=== PATIENT | female | born 1980 | race Caucasian/White ===

== ENCOUNTER → 2018-05-05 12:40 | Outpatient (CLI) | payer OTHER, MEDICAID, SELFPAY ==
[2018-05-05 13:40] LABS: HCG Quantitative /Beta subunit < 2.39 mIU/mL
== END ==
DX: N91.5 Oligomenorrhea, unspecified (principal)
CPT/HCPCS: 36415; 84702

== ENCOUNTER 2019-10-25 18:30 | Emergency (ER) | payer OTHER, MEDICAID, SELFPAY ==
[2019-10-25 18:39] VITALS: BP 118/65; PULSE 67; RESP 15; TEMP 36.6; O2SAT 99; BMI 39.4
[2019-10-25 21:16] VITALS: BP 118/61; PULSE 66; RESP 18; O2SAT 97
[2019-10-25 21:21] LABS: Add Manual Diff / Slide Review NO; Basophils Absolute Auto 100 /uL (0-100); Eosinophils Absolute Auto 300 /uL (0-450); Eosinophils Percent Auto 4.1 % (2-4); Hematocrit 39.4 % (36-46); Hemoglobin 13.9 g/dL (12.0-16.0); Lymphocytes Absolute Auto 3400 /uL (1100-4500); Lymphocytes Percent Auto 43.8 % (25-40); Mean Corpuscular HGB Conc 35.4 % (30-36); Mean Corpuscular Volume 87.6 fL (80-100); Monocytes Absolute Auto 800 /uL (0-900); Monocytes Percent Auto 10.4 % (3-14); Neutrophils Absolute Auto 3200 /uL (1500-7000); Neutrophils Percent Auto 40.7 % (50-75); Platelet Count 218 X10^3/uL (150-400); Red Cell Distribution Width 12.5 % (11.6-14.8); White Blood Cell Count 7.8 X10^3/uL (4.5-11.0)
[2019-10-25 21:29] LABS: Alanine Aminotransferase 21 IU/L (<35); Albumin Globulin Ratio 1.4 (1.0-2.8); Alkaline Phosphatase 92 U/L (38-126); Aspartate Aminotransferase 35 IU/L (14-36); BUN Creatinine Ratio 21.3 (6-22); Bilirubin Total 0.3 mg/dL (0.2-1.3); Blood Urea Nitrogen 19 mg/dL (7-17); Calcium 9.1 mg/dL (8.4-10.2); Carbon Dioxide 26 mmol/L (22-32); Chloride 110 mmol/L (98-107); Estimated Glomerular Filt Rate > 60.0 mL/min (>60); Globulin 2.9 g/dL (1.7-4.1); Glucose 95 mg/dL (70-100); HEMOLYSIS < 15 (0-50); Potassium 4.1 mmol/L (3.4-5.1); Sodium 142 mmol/L (137-145); Total Protein 6.9 g/dL (6.3-8.2)
--- NOTE | 2019-10-25 21:37 | ED_ITS ---
HPI - Female Genitourinary General Chief complaint: Vaginal Bleeding Stated complaint: Heavy period, says ongoing since April. Time Seen by Provider: 10/25/19 21:37 Source: patient Mode of arrival: Wheelchair Limitations: no limitations History of Present Illness HPI Narrative: The patient has PCOS. She has experienced bleeding daily for the last 6 months. She has not seen her doctor. Over last 2 days she has experienced extremely heavy bleeding, having to change tampons, multiple per hour. She has no abdominal pain. She has no nausea vomiting. She has no prior history of uterine problems. She denies weakness or dizziness. She has no bleeding disorders. She has no urinary complaints. Related Data Previous Rx's Medication Instructions Recorded sertraline 50 mg PO QDAY #30 tab 09/03/16 docusate sodium 250 mg PO QDAY #14 cap 02/02/17 oxycodone-acetaminophen 0 tab PO Q4HP PRN #30 tab 02/02/17 ibuprofen 600 mg PO Q6HP PRN #14 tab 03/28/17 medroxyprogesterone [Provera] 10 mg PO .Q 2 hours PRN #30 tab 10/25/19 Allergies Allergy/AdvReac Type Severity Reaction Status Date / Time morphine Allergy Intermediate pt felt Verified 10/25/19 18:41 like she was on fire Review of Systems Review of Systems ROS Unobtainable: All systems reviewed & are unremarkable except as noted in HPI and below Constitutional Constitutional: Denies chills, Denies fever(s), Denies lethargy and Denies weakness Cardiovascular Cardiovascular: Denies chest pain, Denies irregular heart rhythm, Denies palpitations and Denies dyspnea Respiratory Respiratory: Denies cough and Denies dyspnea Gastrointestinal Gastrointestinal: Denies abdominal pain, Denies nausea and Denies vomiting Genitourinary Genitourinary: Reports menorrhagia, Denies urinary urgency and Denies vaginal discharge Musculoskeletal Musculoskeletal: Reports back pain (Lower lumbar pain.), Denies muscle weakness, Denies numbness and Denies tingling Integumentary/Breasts Skin/Breast: Reports system reviewed and no additional complaints, except as docu Neurologic Neurologic: Denies numbness, Denies tingling and Denies weakness Psychiatric Psychiatric: Denies anxiety Endocrine Endocrine: Denies palpitations Patient History alcohol intake frequency: holidays/special occasions only Substance Use Type: marijuana Exam Initial Vital Signs Initial Vital Signs: Vital Signs Temperature 97.9 F 10/25/19 18:39 Pulse Rate 67 10/25/19 18:39 Respiratory Rate 15 10/25/19 18:39 Blood Pressure 118/65 10/25/19 18:39 Pulse Oximetry 99 10/25/19 18:39 Const General: cooperative and well developed Nutritional Appearance: well nourished Eyes General: appearance normal, both eyes and all related structures Conjunctivae: conjunctivae normal Sclera: sclerae normal Resp Effort & Inspection: normal respiratory effort and able to speak in complete sentences Auscultation: clear to auscultation bilaterally Cardio Rate: regular rate Rhythm: regular rhythm Heart Sounds: S1 normal, S2 normal, no click, no gallops, no murmurs and no rubs Pulses: normal peripheral pulses GI Inspection: non-distended Palpation: soft, no hepatosplenomegaly, No guarding, No pulsatile mass and No tender Auscultation: normal bowel sounds Back/Spine/Pelvis Back: back tenderness (Lumbar pain without deformity.) and No CVA tenderness Skin General: no rashes or lesions noted, No jaundice and No petechiae Neuro General: alert, oriented x3, gait normal and no focal motor deficits Speech: speech normal Extrem General: full ROM, no clubbing, cyanosis or edema, no pedal edema and no calf tenderness Other: Full range of motion both legs without radiculopathy Psych Appearance: well kempt Mental Status: mental status grossly normal Attitude: cooperative Thought Content: normal and suicidality Judgment: judgment good Course Course Course Narrative: The patient was given IV Toradol for the low back pain. She is advised use Advil. I discussed the dysfunctional uterine bleeding with on- call Gynecology, Dr. Pool. Dr. Pool agrees to starting her on Depo-Provera, and follow-up with her own triage licensed practical nurse, Dr. Will. Orders Ordered: ED Orders 10/25/19 21:10 CMP [Comprehensive Metabolic Panel] Stat Complete Blood Count AUTO DIFF Stat Discontinued Medications Ketorolac Tromethamine (Toradol) 30 mg IV NOW ONE Stop: 10/25/19 22:52 Last Admin: 10/25/19 23:57 Dose: 30 mg Documented by: BRAYDON Medroxyprogesterone Acetate (Medroxyprogesterone) 10 mg PO NOW ONE Stop: 10/25/19 22:44 Last Admin: 10/25/19 23:57 Dose: Not Given Documented by: BRAYDON Medroxyprogesterone Acetate (Medroxyprogesterone) 10 mg PO Q2HR PRN PRN Reason: Bleeding Medroxyprogesterone Acetate (Medroxyprogesterone) 10 mg PO Q2HR PRN PRN Reason: Bleeding Medroxyprogesterone Acetate (Provera) 10 mg PO DAILY OMKAR Last Admin: 10/25/19 23:57 Dose: 10 mg Documented by: BRAYDON Vital Signs Vital signs: Vital Signs - 8 hr 10/25/19 21:16 10/26/19 00:13 Pulse Rate 66 60 Respiratory Rate 18 15 Blood Pressure 134/80 Blood Pressure [Left Arm] 118/61 Pulse Oximetry 97 100 MDM - Female Genitourinary Lab Data Result diagrams: 10/25/19 21:10 10/25/19 21:10 Labs: Lab Results 10/25/19 10/25/19 Range/Units 21:10 21:10 WBC 7.8 (4.5-11.0) X10^3/uL RBC 4.50 (4.0-5.2) X10^6/uL Hgb 13.9 (12.0-16.0) g/dL Hct 39.4 (36-46) % MCV 87.6 (80-100) fL MCH 31.0 (26-34) PG MCHC 35.4 (30-36) % RDW 12.5 (11.6-14.8) % Plt Count 218 (150-400) X10^3/uL Neut % (Auto) 40.7 L (50-75) % Lymph % (Auto) 43.8 H (25-40) % [place] % (Auto) 10.4 (3-14) % Eos % (Auto) 4.1 H (2-4) % Baso % (Auto) 1.0 (0-2) % Neut # (Auto) 3200 (2726-2391) /uL Lymph # (Auto) 3400 (0516-7265) /uL [place] # (Auto) 800 (0-900) /uL Eos # (Auto) 300 (0-450) /uL Baso # (Auto) 100 (0-100) /uL Sodium 142 (137-145) mmol/L Potassium 4.1 (3.4-5.1) mmol/L Chloride 110 H (98-107) mmol/L Carbon Dioxide 26 (22-32) mmol/L BUN 19 H (7-17) mg/dL Creatinine 0.89 (0.52-1.04) mg/dL Estimated GFR > 60.0 (>60) mL/min BUN/Creatinine Ratio 21.3 (6-22) Glucose 95 (70-100) mg/dL Calcium 9.1 (8.4-10.2) mg/dL Total Bilirubin 0.3 (0.2-1.3) mg/dL AST 35 (14-36) IU/L ALT 21 (<35) IU/L Alkaline Phosphatase 92 (38-126) U/L Total Protein 6.9 (6.3-8.2) g/dL Albumin 4.0 (3.5-5.0) g/dL Globulin 2.9 (1.7-4.1) g/dL Albumin/Globulin Ratio 1.4 (1.0-2.8) Point of Care Testing Test Results Negative Urine Dip Bedside Urine Glucose Negative Bedside Urine Bilirubin - Negative Bedside Urine Ketone - Negative Urine Specific [place] 1.005 Bedside Urine Occult Blood +++ Bedside Urine pH 6.0 Bedside Urine Protein - Negative Bedside Urine Urobilinogen - Negative Bedside Urine Nitrite - Negative Bedside Urine Leukocytes - Negative Esterase Discharge Plan Departure Patient Disposition: Home Clinical Impression: Menorrhagia Qualifiers: Menorrhagia type: with irregular cycle Qualified Code(s): N92.1 - Excessive and frequent menstruation with irregular cycle Discharge Date/Time: 10/26/19 00:14 Instructions: DI for Menorrhagia Activity Restrictions/Additional Instructions: Provera 10 mg every 2 hours while bleeding heavily. When the bleeding improves/resolves Provera 1 tablet daily. Drink plenty of fluids, be sure you remain well hydrated. Contact Dr. Will tomorrow to arrange follow-up. Return the ER if necessary. Prescriptions: New medroxyprogesterone [Provera] 10 mg tablet 10 mg PO .Q 2 hours PRN (Reason: bleeding) Qty: 30 RF: 0 No Action sertraline 50 MG tablet 50 mg PO QDAY Qty: 30 RF: 3 oxycodone-acetaminophen 5 MG/325 MG tablet 0 tab PO Q4HP PRNQty: 30 RF: 0 docusate sodium 250 MG capsule 250 mg PO QDAY Qty: 14 RF: 0 ibuprofen 600 MG tablet 600 mg PO Q6HP PRNQty: 14 RF: 6 Referrals: Justyna Beltran [Primary Care Provider] - Stand Alone Forms: Work Release Note
[2019-10-25] MEDS: MEDROXYPROGESTERONE ACETATE 2.5 MG TABLET 10 MG PO (23:57)
[2019-10-25] MEDS: KETOROLAC 60 MG/2 ML VIAL 30 MG IV (23:57)
[2019-10-26 00:13] VITALS: BP 134/80; PULSE 60; RESP 15; O2SAT 100
== END 2019-10-26 00:14 | disposition home or self-care (01) ==
PROVIDERS: Emergency Provider Emergency Medicine; PCP Internal Medicine
DX: N92.1 Excessive and frequent menstruation with irregular cycle (principal); M54.6 Pain in thoracic spine; E28.2 Polycystic ovarian syndrome
CPT/HCPCS: 36415; 80053; 81003; 81025; 85025; 96374; 99284; J1885

== ENCOUNTER 2019-10-28 16:00 | Emergency (ER) | payer OTHER, MEDICAID, SELFPAY ==
[2019-10-28 16:02] VITALS: BP 127/70; PULSE 55; RESP 22; TEMP 36.2; O2SAT 100
--- NOTE | 2019-10-28 16:36 | DI.US.S_ITS ---
PROCEDURE: US PELVIC COMPLETE INDICATIONS: pelvic pain, heavy bleeding TECHNIQUE: Real-time scanning was performed of the pelvic organs, with image documentation. Additional endovaginal scanning was necessary due to incomplete visualization of the adnexal and endometrial structures by transabdominal scanning. COMPARISON: [facility], US, PELVIC COMPLETE, 01/30/2016, 10:55. FINDINGS: Transabdominal scanning: Limited scanning through the kidneys shows no hydronephrosis. No pathologic free abdominal or pelvic fluid. Endovaginal scanning: Uterus: Uterus is normal in size at 8.9 x 5.2 x 7.1 cm. The endometrium measures 5 mm in combined thickness. No abnormal vascularity can be seen along the endometrial stripe. Ovaries: The right ovary measures 2.8 x 1.8 x 1.8 cm and demonstrates an unremarkable sonographic appearance. The left ovary is not seen. No adnexal masses can be seen on either side. IMPRESSION: Unremarkable study, with a normal-appearing endometrial stripe. The left ovary is not seen. Dictated by: Luke Vann M.D. on 10/28/2019 at 16:51 Approved by: Luke Vann M.D. on 10/28/2019 at 16:52
--- NOTE | 2019-10-28 16:38 | ED_ITS ---
HPI - Dizziness General Chief Complaint: Dizziness Stated Complaint: lightheaded,dizzy,nausea Time Seen by Provider: 10/28/19 16:36 Source: patient Mode of arrival: Ambulatory Limitations: no limitations History of Present Illness HPI Narrative: 38-year-old female 40 smoker with a history of PCOS is presents with a chief complaint of ongoing vaginal bleeding and dizziness. She has very minimal pelvic cramping which she does not describe his pain. She is not saturating more than 1 pad per hour. She was seen and evaluated 3 days ago and was placed on medroxyprogesterone 10 mg every 2 hours as needed. Her OB doctor is Dr. Reyes and she spoke with him this morning and plans to see patient in the office tomorrow. She denies any fever or chills. She has no chest pain or shortness of breath. MD complaint: dizziness and lightheadedness Onset (ago): hour(s) Timing: gradual onset Description: lightheadedness History of similar episodes: Yes History of trauma: No Severity: mild Relieving factors: rest Exacerbating factors: position Related Data Previous Rx's Medication Instructions Recorded sertraline 50 mg PO QDAY #30 tab 09/03/16 docusate sodium 250 mg PO QDAY #14 cap 02/02/17 oxycodone-acetaminophen 0 tab PO Q4HP PRN #30 tab 02/02/17 ibuprofen 600 mg PO Q6HP PRN #14 tab 03/28/17 medroxyprogesterone [Provera] 10 mg PO .Q 2 hours PRN #30 tab 10/25/19 Allergies Allergy/AdvReac Type Severity Reaction Status Date / Time morphine Allergy Intermediate pt felt Verified 10/25/19 18:41 like she was on fire paper tape Allergy Uncoded 10/28/19 16:06 Review of Systems Constitutional Constitutional: Denies chills, Denies fatigue, Denies fever(s), Denies frequent falls, Denies lethargy and Reports weakness Eyes Eyes: Denies change in vision, Denies eye discharge, Denies irritation and Denies loss of vision ENT Ears, Nose, Mouth, and Throat: Denies change in voice, Denies dizziness, Denies neck pain, Denies sore throat and Denies throat swelling Cardiovascular Cardiovascular: Denies chest pain, Denies irregular heart rhythm, Denies lightheadedness, Denies palpitations, Denies dyspnea, Denies dyspnea on exertion and Denies orthopnea Respiratory Respiratory: Denies cough, Denies dyspnea, Denies dyspnea on exertion and Denies wheezing Gastrointestinal Gastrointestinal: Denies abdominal pain, Denies change in bowel habits, Denies diarrhea, Denies nausea and Denies vomiting Genitourinary Genitourinary: Denies hematuria, Reports menorrhagia, Denies flank pain, Denies urinary incontinence and Denies urinary urgency Musculoskeletal Musculoskeletal: Denies back pain, Denies muscle weakness, Denies neck pain, Denies numbness and Denies tingling Integumentary/Breasts Skin/Breast: Denies pruritus, Denies erythema, Denies rash and Denies wounds Neurologic Neurologic: Denies behavioral changes, Denies confusion, Denies dizziness, Denies frequent falls, Denies loss of vision, Denies numbness, Denies tingling and Reports weakness Psychiatric Psychiatric: Denies anxiety, Denies behavioral changes, Denies confusion, Denies depression, Denies homicidal ideation and Denies suicidal ideation Endocrine Endocrine: Denies fatigue, Denies flushing and Denies palpitations Hematologic/Lymphatic Hematologic/Lymphatic: Denies easy bruising Allergic/Immunologic Allergic/Immunologic: Denies urticaria, Denies throat swelling and Denies wheezing Patient History Social History Smoking Status: Former smoker Smoking Status: Former smoker alcohol intake frequency: holidays/special occasions only Substance Use Type: marijuana Exam Narrative Exam Narrative: GENERAL: [38] year old patient appears stated age. Well- nourished, well-developed patient, in mild distress. HEAD: Atraumatic. Normocephalic. EYES: Pupils equal round and reactive. Extraocular motions intact. No scleral icterus. No injection or drainage. ENT: Nose without bleeding, purulent drainage. Throat without erythema, tonsillar hypertrophy or exudate. Airway patent. NECK: Trachea midline. Non tender CARDIOVASCULAR: Regular rate and rhythm without murmurs, gallops, or rubs. RESPIRATORY: Clear to auscultation. Breath sounds equal bilaterally. No wheezes, rales, or rhonchi. GASTROINTESTINAL: Abdomen soft, non-tender, nondistended. EXTREMITIES: No edema or joint tenderness. BACK: Nontender without deformity or crepitance. No flank tenderness. NEURO: AOx3. 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 Recommends return precautions and follow up tomorrow as planned. Vital Signs Vital signs: Vital Signs - 8 hr 10/28/19 16:02 10/28/19 17:28 Temperature 97.2 F L Pulse Rate 55 L Pulse Rate [Orthostatic Lying] 57 L Pulse Rate [Orthostatic Sitting] 58 L Pulse Rate [Orthostatic Standing] 59 L Respiratory Rate 22 Blood Pressure 127/70 Blood Pressure [Orthostatic Lying] 130/85 Blood Pressure [Orthostatic Sitting] 136/83 Blood Pressure [Orthostatic Standing] 132/83 Pulse Oximetry 100 MDM - Dizziness Lab Data Result diagrams: 10/28/19 16:15 10/28/19 16:15 Labs: Lab Results 10/28/19 10/28/19 10/28/19 Range/Units 10:45 16:15 16:15 WBC 6.7 (4.5-11.0) X10^3/uL RBC 4.55 (4.0-5.2) X10^6/uL Hgb 13.7 (12.0-16.0) g/dL Hct 39.8 (36-46) % MCV 87.4 (80-100) fL MCH 30.0 (26-34) PG MCHC 34.4 (30-36) % RDW 12.7 (11.6-14.8) % Plt Count 256 (150-400) X10^3/uL Neut % (Auto) 45.4 L (50-75) % Lymph % (Auto) 44.0 H (25-40) % [place] % (Auto) 6.5 (3-14) % Eos % (Auto) 3.5 (2-4) % Baso % (Auto) 0.6 (0-2) % Neut # (Auto) 3000 (3283-1029) /uL Lymph # (Auto) 2900 (7245-6797) /uL [place] # (Auto) 400 (0-900) /uL Eos # (Auto) 200 (0-450) /uL Baso # (Auto) 0 (0-100) /uL Sodium 141 (137-145) mmol/L Potassium 3.9 (3.4-5.1) mmol/L Chloride 109 H (98-107) mmol/L Carbon Dioxide 23 (22-32) mmol/L BUN 17 (7-17) mg/dL Creatinine 0.79 (0.52-1.04) mg/dL Estimated GFR > 60.0 (>60) mL/min BUN/Creatinine Ratio 21.5 (6-22) Glucose 91 (70-100) mg/dL Calcium 9.3 (8.4-10.2) mg/dL Total Bilirubin 0.3 (0.2-1.3) mg/dL AST 34 (14-36) IU/L ALT 18 (<35) IU/L Alkaline Phosphatase 92 (38-126) U/L Total Protein 7.7 (6.3-8.2) g/dL Albumin 4.4 (3.5-5.0) g/dL Globulin 3.3 (1.7-4.1) g/dL Albumin/Globulin Ratio 1.3 (1.0-2.8) Lipase 148 (23-300) U/L Blood Type O Positive Antibody Screen Negative Discharge Plan Departure Patient Disposition: Home Clinical Impression: Menorrhagia Qualifiers: Menorrhagia type: with irregular cycle Qualified Code(s): N92.1 - Excessive and frequent menstruation with irregular cycle Discharge Date/Time: 10/28/19 18:13 Instructions: DI for Menorrhagia Activity Restrictions/Additional Instructions: *You have been diagnosed with [vaginal bleeding] *What to do: * continue to take medications as directed *Follow up with Dr. Will tomorrow as planned *Return to ER if you should have any new, worsening or concerning symptoms, such as [increasing pain, increased bleeding, saturating a pad per hour for multiple hours, other bothersome symptoms] Prescriptions: No Action sertraline 50 MG tablet 50 mg PO QDAY Qty: 30 RF: 3 oxycodone-acetaminophen 5 MG/325 MG tablet 0 tab PO Q4HP PRNQty: 30 RF: 0 docusate sodium 250 MG capsule 250 mg PO QDAY Qty: 14 RF: 0 ibuprofen 600 MG tablet 600 mg PO Q6HP PRNQty: 14 RF: 6 medroxyprogesterone [Provera] 10 mg tablet 10 mg PO .Q 2 hours PRN (Reason: bleeding) Qty: 30 RF: 0 Referrals: Justyna Beltran [Primary Care Provider] - Chandra Will MD [Physician] -
--- NOTE | 2019-10-28 16:40 | PC.NURSE ---
Report ongoing vaginal bleeding despite Q2 hr medication prescribed on 10/24. Pt reports increase dizziness, SOB and fatigue. Appears shaky. Mucous membranes pale.
[2019-10-28 16:41] LABS: Add Manual Diff / Slide Review NO; Basophils Absolute Auto 0 /uL (0-100); Basophils Percent Auto 0.6 % (0-2); Eosinophils Absolute Auto 200 /uL (0-450); Eosinophils Percent Auto 3.5 % (2-4); Hematocrit 39.8 % (36-46); Hemoglobin 13.7 g/dL (12.0-16.0); Lymphocytes Absolute Auto 2900 /uL (1100-4500); Mean Corpuscular HGB Conc 34.4 % (30-36); Mean Corpuscular Volume 87.4 fL (80-100); Monocytes Absolute Auto 400 /uL (0-900); Monocytes Percent Auto 6.5 % (3-14); Neutrophils Absolute Auto 3000 /uL (1500-7000); Neutrophils Percent Auto 45.4 % (50-75); Platelet Count 256 X10^3/uL (150-400); Red Blood Cell Count 4.55 X10^6/uL (4.0-5.2); Red Cell Distribution Width 12.7 % (11.6-14.8); White Blood Cell Count 6.7 X10^3/uL (4.5-11.0)
[2019-10-28 16:43] LABS: Alanine Aminotransferase 18 IU/L (<35); Albumin 4.4 g/dL (3.5-5.0); Albumin Globulin Ratio 1.3 (1.0-2.8); Alkaline Phosphatase 92 U/L (38-126); Aspartate Aminotransferase 34 IU/L (14-36); BUN Creatinine Ratio 21.5 (6-22); Bilirubin Total 0.3 mg/dL (0.2-1.3); Blood Urea Nitrogen 17 mg/dL (7-17); Calcium 9.3 mg/dL (8.4-10.2); Carbon Dioxide 23 mmol/L (22-32); Chloride 109 mmol/L (98-107); Estimated Glomerular Filt Rate > 60.0 mL/min (>60); Globulin 3.3 g/dL (1.7-4.1); Glucose 91 mg/dL (70-100); HEMOLYSIS < 15 (0-50); Lipase 148 U/L (23-300); Potassium 3.9 mmol/L (3.4-5.1); Sodium 141 mmol/L (137-145); Total Protein 7.7 g/dL (6.3-8.2)
[2019-10-28 17:28] VITALS: BP 130/85; BP 132/83; BP 136/83; PULSE 57; PULSE 58; PULSE 59
== END 2019-10-28 18:13 | disposition home or self-care (01) ==
PROVIDERS: Emergency Provider Emergency Medicine; PCP Internal Medicine
DX: N92.1 Excessive and frequent menstruation with irregular cycle (principal); E28.2 Polycystic ovarian syndrome; R42 Dizziness and giddiness; R07.9 Chest pain, unspecified
CPT/HCPCS: 36415; 76830; 76856; 80053; 83690; 85025; 86850; 86900; 86901; 93005; 93010; 99284

== ENCOUNTER 2020-04-18 12:00 | Outpatient (RCR) | payer OTHER, MEDICAID, SELFPAY ==
--- NOTE | 2019-11-13 17:54 | PT.OIE ---
Current Diagnoses Stiffness of right ankle, not elsewhere classified (11/13/19) Plantar fascial fibromatosis (11/13/19) Metatarsalgia, right foot (11/13/19) Pain in right foot (11/13/19) Visit Care Team Role Provider Type Justyna Beltran Primary Care Provider Non-Staff Specialty: Medical Address: [address] [place] [address], [id number] Email: Jaymie Arredondo DPM Attending Provider Physician Referring Provider Specialty: Podiatry Address: [address] [place] [address], [id number] Email: [email or web address] Initial Evaluation PT-OP-A Visit Information Start: 11/13/19 17:19 Freq: Status: Active Protocol: Document 11/13/19 11:15 DCW (Rec: 11/13/19 17:54 [facility] [id number]) Out-Patient Physical Therapy Visit Information Visit Information Visit Type Initial Evaluation Visit Start Time 11:15 Visit Stop Time 12:00 Total Visit Minutes 45 Visit Number 1 Number of LIAISON INSPECTION LABORATORY ASSISTANT Visits 0 Evaluation Information Evaluation Date 11/13/19 PT-OP-B Current Condition Start: 11/13/19 17:19 Freq: Status: Active Protocol: Document 11/13/19 11:15 DCW (Rec: 11/13/19 17:54 [facility] [id number]) Current Condition History of Current Condition Onset Date 7 year history Current Complaints R heel pain, ankle stiffness, difficulty with extended standing History of Current Condition Pt is a 38 year old female with a long standing history of plantar fasciitis. Pt notes that she was first diagnosed in 2012, received a cortisone shot, which made if feel magnificent for ~1 year, but ever since has slowly worsened . Pt reports she is in the most pain after working at her job at [employer], and when first getting up on her feet in the morning. 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 Pt wears a walking boot occasionally at work, which seems ot offer some relief. Pt enjoys hiking [place] with her young child, but tried to go out one month ago, and had to stop after only six minutes due to severe pain. PT-OP-C Subjective Start: 11/13/19 17:19 Freq: Status: Active Protocol: Document 11/13/19 11:15 DCW (Rec: 11/13/19 17:54 DCW [id number]) OP-PT Subjective Patient Comments Patient Comments I really want to get back to hiking, but it's pretty much impossible right now. Patient Reported Progress Worse Patient Questionnaires Foot & Ankle Ability Measure- ADL and Sports FAAM-ADL Score 57.14% FAAM-Sport Score 46.4% Lower Extremity Functional Scale LEFS Score 34/80 = 42.5% OP-PT Pain Assessment Location Right Volar Foot Intensity 6 Scale Used Numeric (0 - 10) PT-OP-F Manual Assessment Start: 11/13/19 17:19 Freq: Status: Active Protocol: Document 11/13/19 11:15 DCW (Rec: 11/13/19 17:54 DCW [id number]) Manual Assessments Soft Tissue Assessment Soft Tissue Mobility Assessment Tenderness to palpation 3/4: Wincing and withdraw along plantar fascia, particularly mid-tarsus Tenderness to palpation 3/4: Wincing and withdraw and moderate hypertonia along muscle belly of bilateral gastrosoleus complex. PT-OP-K Range of Motion Start: 11/13/19 17:19 Freq: Status: Active Protocol: Document 11/13/19 11:15 DCW (Rec: 11/13/19 17:54 DCW [id number]) Ankle and Foot Goniometric Range of Motion Ankle and Foot Right Active Testing Position Sitting Dorsiflexion with Knee Flexed 0 Plantarflexion 60 Inversion 30 Eversion 6 Left Active Testing Position Sitting Dorsiflexion with Knee Flexed 10 Plantarflexion 58 Inversion 40 Eversion 12 PT-OP-M Strength Start: 11/13/19 17:19 Freq: Status: Active Protocol: Document 11/13/19 11:15 DCW (Rec: 11/13/19 17:54 DCW [id number]) Ankle/Foot Strength Ankle and Foot Manual Muscle Testing Right Dorsiflexion (L4) 4- Good- Plantarflexion (S1) 4- Good- Inversion 4 Good Eversion (S1) 3+ Fair+ Left Dorsiflexion (L4) 4+ Good+ Plantarflexion (S1) 4 Good Inversion 4+ Good+ Eversion (S1) 4+ Good+ PT-OP-R Modalities Start: 11/13/19 17:19 Freq: Status: Active Protocol: Document 11/13/19 11:15 DCW (Rec: 11/13/19 17:54 DCW [id number]) Iontophoresis Treatment Right Volar Foot Treatment Medication Dexamethasone (-) Medication Amount (mL) (ml) 1.0 Medication Dosage 4 mg/mL Treatment Polarity Negative to Negative Dispersive Electrode Placement mid-Tarsus PT-OP-T Assessment and Plan Start: 11/13/19 17:19 Freq: Status: Active Protocol: Document 11/13/19 11:15 DCW (Rec: 11/13/19 17:54 DCW [id number]) Physical Therapy Assessment Rehab Potential Rehabilitation Potential Good Evaluation Complexity Number of Personal Factors/Comorbidities 1-2 Number of Body Systems Impaired 1-2 Clinical Presentation at Evaluation Evolving Impairments Impairments Activity Tolerance,Functional Activities,Functional Mobility ,ROM,Soft Tissue Mobility, Strength Goals Four Impairment Pt unable to hike longer than six minutes without increased pain Mcc Goal (LTG) Pt to report hiking 20 minutes without an increase in symptoms LTG Duration 01/13/20 Three Impairment Moderate hypertonia along bilateral gastrosoleus complex Mcc Goal (LTG) Decrease tone to mild degree along gastrosoleus to allow for proper dorsiflexion during swing phase of gait. LTG Duration 01/13/20 Two Impairment Pt presents with limited R ankle ROM, 0? DF and 6? Eversion Movers Goal (LTG) Pt to demonstrate 10? R dorsiflexion and 12? R eversion in order to normalize gait pattern. LTG Duration 01/13/20 One Impairment Pt does not have an appropriate home exercise program Short Term Goal (STG) Pt to be independent and compliant with an appropriate HEP. STG Duration 12/13/19 Assessment Summary Assessment Pt presents with signs and symptoms consistent with right plantar fasciitis. Pt displays expected symptoms of tenderness to palpation and increased pain with extended standing and upon first rising in the morning. Pt has limitations in right ankle ROM , especially dorsiflexion and eversion. Additionally, pt has moderate tone throughout her calf musculature bilaterally, which is likely creating increased shear force along her plantar surface. Pt should benefit from ROM/flexibility, STM to gastrosoleus, strengthening, and use of Iontophoresis to decrease inflammation. Physical Therapy Plan Frequency and Duration Frequency of Treatment 2x/Week Duration of Treatment 10 weeks Plan of Care Start Date 11/13/19 Plan of Care End Date 01/12/20 Therapeutic Interventions Therapeutic Interventions Aquatic Therapy,Balance Training,Gait Training,Home Exercise Program,Joint Mobilizations,Manual Therapy, Patient/Caregiver Education, Self-Care/Home Management,Soft Tissue Mobilization,Taping, Therapeutic Activities, Therapeutic Exercises Modalities Cold Pack/Ice Massage,Electric Stimulation,Hot Packs, Iontophoresis,Ultrasound Next Visit Focus/Plan Next Note Type Treatment Note Next Visit Plan Assess tolerance to Ionto, address ankle ROM, intrinsic foot strengthening, STM to calf
--- NOTE | 2019-11-13 17:55 | PT.OPPOC ---
Physical, Occupational & Speech Therapy At [facility] Current Diagnoses Stiffness of right ankle, not elsewhere classified (11/13/19) Plantar fascial fibromatosis (11/13/19) Metatarsalgia, right foot (11/13/19) Pain in right foot (11/13/19) Visit Care Team Role Provider Type Justyna Beltran Primary Care Provider Non-Staff Specialty: Medical Address: [address] [place] [address], [id number] Email: Jaymie Arredondo DPM Attending Provider Physician Referring Provider Specialty: Podiatry Address: [address] [place] [address], [id number] Email: [email or web address] Plan Of Care PT-OP-T Assessment and Plan Start: 11/13/19 17:19 Freq: Status: Active Protocol: Document 11/13/19 11:15 DCW (Rec: 11/13/19 17:54 DCW [id number]) Physical Therapy Assessment Rehab Potential Rehabilitation Potential Good Evaluation Complexity Number of Personal Factors/Comorbidities 1-2 Number of Body Systems Impaired 1-2 Clinical Presentation at Evaluation Evolving Impairments Impairments Activity Tolerance,Functional Activities,Functional Mobility ,ROM,Soft Tissue Mobility, Strength Goals Four Impairment Pt unable to hike longer than six minutes without increased pain Executive Meeting Manager Goal (LTG) Pt to report hiking 20 minutes without an increase in symptoms LTG Duration 01/13/20 Three Impairment Moderate hypertonia along bilateral gastrosoleus complex Executive Meeting Manager Goal (LTG) Decrease tone to mild degree along gastrosoleus to allow for proper dorsiflexion during swing phase of gait. LTG Duration 01/13/20 Two Impairment Pt presents with limited R ankle ROM, 0? DF and 6? Eversion Executive Meeting Manager Goal (LTG) Pt to demonstrate 10? R dorsiflexion and 12? R eversion in order to normalize gait pattern. LTG Duration 01/13/20 One Impairment Pt does not have an appropriate home exercise program Short Term Goal (STG) Pt to be independent and compliant with an appropriate HEP. STG Duration 12/13/19 Assessment Summary Assessment Pt presents with signs and symptoms consistent with right plantar fasciitis. Pt displays expected symptoms of tenderness to palpation and increased pain with extended standing and upon first rising in the morning. Pt has limitations in right ankle ROM , especially dorsiflexion and eversion. Additionally, pt has moderate tone throughout her calf musculature bilaterally, which is likely creating increased shear force along her plantar surface. Pt should benefit from ROM/flexibility, STM to gastrosoleus, strengthening, and use of Iontophoresis to decrease inflammation. Physical Therapy Plan Frequency and Duration Frequency of Treatment 2x/Week Duration of Treatment 10 weeks Plan of Care Start Date 11/13/19 Plan of Care End Date 01/12/20 Therapeutic Interventions Therapeutic Interventions Aquatic Therapy,Balance Training,Gait Training,Home Exercise Program,Joint Mobilizations,Manual Therapy, Patient/Caregiver Education, Self-Care/Home Management,Soft Tissue Mobilization,Taping, Therapeutic Activities, Therapeutic Exercises Modalities Cold Pack/Ice Massage,Electric Stimulation,Hot Packs, Iontophoresis,Ultrasound Next Visit Focus/Plan Next Note Type Treatment Note Next Visit Plan Assess tolerance to Ionto, address ankle ROM, intrinsic foot strengthening, STM to calf Plan of Care Dates Plan of Care Start Date 11/13/19 Plan of Care End Date 01/12/20 Electronically Signed by: Anjel Wood, PT 11/13/19 5612 Please Sign and Return: I have reviewed this Plan of Care and certify that the skilled therapy services above are required to meet the patient?s needs. Physician Signature Date Printed Name and Credentials Clinical Instructor Signature Printed Name and Credentials
--- NOTE | 2019-11-15 17:49 | PT.OTN ---
Current Diagnoses Stiffness of right ankle, not elsewhere classified (11/15/19) Plantar fascial fibromatosis (11/15/19) Metatarsalgia, right foot (11/15/19) Pain in right foot (11/15/19) Physical Therapy Treatment Note PT-OP-A Visit Information Start: 11/13/19 17:19 Freq: Status: Active Protocol: Document 11/15/19 16:47 MB (Rec: 11/15/19 17:49 MB [id number]) Out-Patient Physical Therapy Visit Information Visit Information Visit Type Treatment Note Visit Start Time 16:47 Visit Stop Time 17:25 Total Visit Minutes 38 Visit Number 2 PT-OP-B Current Condition Start: 11/13/19 17:19 Freq: Status: Active Protocol: Document 11/13/19 11:15 DCW (Rec: 11/13/19 17:54 DCW [id number]) Current Condition History of Current Condition Onset Date 7 year history Current Complaints R heel pain, ankle stiffness, difficulty with extended standing History of Current Condition Pt is a 38 year old female with a long standing history of plantar fasciitis. Pt notes that she was first diagnosed in 2012, received a cortisone shot, which made if feel magnificent for ~1 year, but ever since has slowly worsened . Pt reports she is in the most pain after working at her job at [employer], and when first getting up on her feet in the morning. 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 Pt wears a walking boot occasionally at work, which seems ot offer some relief. Pt enjoys hiking [place] with her young child, but tried to go out one month ago, and had to stop after only six minutes due to severe pain. PT-OP-C Subjective Start: 11/13/19 17:19 Freq: Status: Active Protocol: Document 11/15/19 16:47 MB (Rec: 11/15/19 17:49 MB [id number]) OP-PT Subjective Patient Comments Patient Comments Pt states that their air mattress has a hole in it and that they have been sleeping on the floor. Pt states that the ionto pad stayed on for 2 hours. She does not state if it was helpful or not. Sleeping in the boot was painful for the top of her foot and her ankle popped when she took it off. PT-OP-F Manual Assessment Start: 11/13/19 17:19 Freq: Status: Active Protocol: Document 11/13/19 11:15 DCW (Rec: 11/13/19 17:54 DCW [id number]) Manual Assessments Soft Tissue Assessment Soft Tissue Mobility Assessment Tenderness to palpation 3/4: Wincing and withdraw along plantar fascia, particularly mid-tarsus Tenderness to palpation 3/4: Wincing and withdraw and moderate hypertonia along muscle belly of bilateral gastrosoleus complex. PT-OP-K Range of Motion Start: 11/13/19 17:19 Freq: Status: Active Protocol: Document 11/13/19 11:15 DCW (Rec: 11/13/19 17:54 DCW [id number]) Ankle and Foot Goniometric Range of Motion Ankle and Foot Right Active Testing Position Sitting Dorsiflexion with Knee Flexed 0 Plantarflexion 60 Inversion 30 Eversion 6 Left Active Testing Position Sitting Dorsiflexion with Knee Flexed 10 Plantarflexion 58 Inversion 40 Eversion 12 PT-OP-M Strength Start: 11/13/19 17:19 Freq: Status: Active Protocol: Document 11/13/19 11:15 DCW (Rec: 11/13/19 17:54 DCW [id number]) Ankle/Foot Strength Ankle and Foot Manual Muscle Testing Right Dorsiflexion (L4) 4- Good- Plantarflexion (S1) 4- Good- Inversion 4 Good Eversion (S1) 3+ Fair+ Left Dorsiflexion (L4) 4+ Good+ Plantarflexion (S1) 4 Good Inversion 4+ Good+ Eversion (S1) 4+ Good+ PT-OP-Q Treatments Start: 11/13/19 17:19 Freq: Status: Active Protocol: Document 11/15/19 16:47 MB (Rec: 11/15/19 17:49 MB [id number]) Therapeutic Exercises Sitting Exercises Quick ice foot Comments Ed pt on self-massage [place] plantar fascia stretch, PF and toe flexion with TB Comments Teal band, pt to perform B Manual Therapy Treatment Other Other Manual Treatments Quick ice massage plantar right foot Self-Care/Home Management Treatment Education Other Education Ed pt in no barefoot walking, to keep flip flops by the bed and another pair near the shower, use of frozen water bottle for massage on bottom of foot, benefits of [place] sock PT-OP-R Modalities Start: 11/13/19 17:19 Freq: Status: Active Protocol: Document 11/13/19 11:15 DCW (Rec: 11/13/19 17:54 DCW [id number]) Iontophoresis Treatment Right Volar Foot Treatment Medication Dexamethasone (-) Medication Amount (mL) (ml) 1.0 Medication Dosage 4 mg/mL Treatment Polarity Negative to Negative Dispersive Electrode Placement mid-Tarsus PT-OP-T Assessment and Plan Start: 11/13/19 17:19 Freq: Status: Active Protocol: Document 11/15/19 16:47 MB (Rec: 11/15/19 17:49 MB [id number]) Physical Therapy Assessment Rehab Potential Rehabilitation Potential Good Evaluation Complexity Number of Personal Factors/Comorbidities 1-2 Number of Body Systems Impaired 1-2 Clinical Presentation at Evaluation Evolving Impairments Impairments Activity Tolerance,Functional Activities,Functional Mobility ,ROM,Soft Tissue Mobility, Strength Goals Four Impairment Pt unable to hike longer than six minutes without increased pain Assisted Goal (LTG) Pt to report hiking 20 minutes without an increase in symptoms LTG Duration 01/13/20 Three Impairment Moderate hypertonia along bilateral gastrosoleus complex Director Internal Control Goal (LTG) Decrease tone to mild degree along gastrosoleus to allow for proper dorsiflexion during swing phase of gait. LTG Duration 01/13/20 Two Impairment Pt presents with limited R ankle ROM, 0? DF and 6? Eversion Director Internal Control Goal (LTG) Pt to demonstrate 10? R dorsiflexion and 12? R eversion in order to normalize gait pattern. LTG Duration 01/13/20 One Impairment Pt does not have an appropriate home exercise program Short Term Goal (STG) Pt to be independent and compliant with an appropriate HEP. STG Duration 12/13/19 Assessment Summary Assessment Pt has severe back pain in supine during treatment and assessment of right LE. This limits supine assessment. Initiated gentle flexibility exercises with theraband today . Con't progression. Physical Therapy Plan Frequency and Duration Frequency of Treatment 2x/Week Duration of Treatment 10 weeks Plan of Care Start Date 11/13/19 Plan of Care End Date 01/12/20 Therapeutic Interventions Therapeutic Interventions Aquatic Therapy,Balance Training,Gait Training,Home Exercise Program,Joint Mobilizations,Manual Therapy, Patient/Caregiver Education, Self-Care/Home Management,Soft Tissue Mobilization,Taping, Therapeutic Activities, Therapeutic Exercises Modalities Cold Pack/Ice Massage,Electric Stimulation,Hot Packs, Iontophoresis,Ultrasound Next Visit Focus/Plan Next Note Type Treatment Note Next Visit Plan Address ankle ROM, intrinsic foot strengthening, STM to calf, flexibility hamstrings, calf, hip flexor
--- NOTE | 2019-11-20 12:00 | PT.OTN ---
Current Diagnoses Stiffness of right ankle, not elsewhere classified (11/20/19) Plantar fascial fibromatosis (11/20/19) Metatarsalgia, right foot (11/20/19) Pain in right foot (11/20/19) Physical Therapy Treatment Note PT-OP-A Visit Information Start: 11/13/19 17:19 Freq: Status: Active Protocol: Document 11/20/19 11:19 DCW (Rec: 11/20/19 11:59 DCW [id number]) Out-Patient Physical Therapy Visit Information Visit Information Visit Type Treatment Note Visit Start Time 11:18 Visit Stop Time 12:00 Total Visit Minutes 42 Visit Number 3 Number of GARBAGE COLLECTION SUPERVISOR Visits 0 Evaluation Information Evaluation Date 11/13/19 PT-OP-B Current Condition Start: 11/13/19 17:19 Freq: Status: Active Protocol: Document 11/13/19 11:15 DCW (Rec: 11/13/19 17:54 DCW [id number]) Current Condition History of Current Condition Onset Date 7 year history Current Complaints R heel pain, ankle stiffness, difficulty with extended standing History of Current Condition Pt is a 38 year old female with a long standing history of plantar fasciitis. Pt notes that she was first diagnosed in 2012, received a cortisone shot, which made if feel magnificent for ~1 year, but ever since has slowly worsened . Pt reports she is in the most pain after working at her job at [employer], and when first getting up on her feet in the morning. 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 Pt wears a walking boot occasionally at work, which seems ot offer some relief. Pt enjoys hiking [place] with her young child, but tried to go out one month ago, and had to stop after only six minutes due to severe pain. PT-OP-C Subjective Start: 11/13/19 17:19 Freq: Status: Active Protocol: Document 11/20/19 11:19 DCW (Rec: 11/20/19 11:59 DCW [id number]) OP-PT Subjective Patient Comments Patient Comments Pt having some pain inher feet , especially her right foot, after walking here from work. PT-OP-F Manual Assessment Start: 06/16/20 17:19 Freq: Status: Active Protocol: Document 11/13/19 11:15 DCW (Rec: 11/13/19 17:54 DCW [id number]) Manual Assessments Soft Tissue Assessment Soft Tissue Mobility Assessment Tenderness to palpation 3/4: Wincing and withdraw along plantar fascia, particularly mid-tarsus Tenderness to palpation 3/4: Wincing and withdraw and moderate hypertonia along muscle belly of bilateral gastrosoleus complex. PT-OP-K Range of Motion Start: 11/13/19 17:19 Freq: Status: Active Protocol: Document 11/13/19 11:15 DCW (Rec: 11/13/19 17:54 DCW [id number]) Ankle and Foot Goniometric Range of Motion Ankle and Foot Right Active Testing Position Sitting Dorsiflexion with Knee Flexed 0 Plantarflexion 60 Inversion 30 Eversion 6 Left Active Testing Position Sitting Dorsiflexion with Knee Flexed 10 Plantarflexion 58 Inversion 40 Eversion 12 PT-OP-M Strength Start: 11/13/19 17:19 Freq: Status: Active Protocol: Document 11/13/19 11:15 DCW (Rec: 11/13/19 17:54 DCW [id number]) Ankle/Foot Strength Ankle and Foot Manual Muscle Testing Right Dorsiflexion (L4) 4- Good- Plantarflexion (S1) 4- Good- Inversion 4 Good Eversion (S1) 3+ Fair+ Left Dorsiflexion (L4) 4+ Good+ Plantarflexion (S1) 4 Good Inversion 4+ Good+ Eversion (S1) 4+ Good+ PT-OP-Q Treatments Start: 11/13/19 17:19 Freq: Status: Active Protocol: Document 11/20/19 11:19 DCW (Rec: 11/20/19 11:59 DCW [id number]) Therapeutic Exercises Prone Exercises 1 Prone Exercise Name Calf stretch Side bilateral Comments Manual stretch Sitting Exercises 1 Sitting Exercise Name Intrinsic marble pick-up Standing Exercises 1 Standing Exercise Name Gastroc stretch Side bilateral Equipment Used SAUL Manual Therapy Treatment Soft Tissue Mobilization 2 Body Location B Plantar surface Mobilization Type Cross-Friction,Strumming 1 Body Location B Achilles insertion Mobilization Type Cross-Friction,Strumming Other Other Manual Treatments Ice massage plantar surface and Achilles insertion bilaterally PT-OP-R Modalities Start: 11/13/19 17:19 Freq: Status: Active Protocol: Document 11/13/19 11:15 DCW (Rec: 11/13/19 17:54 DCW [id number]) Iontophoresis Treatment Right Volar Foot Treatment Medication Dexamethasone (-) Medication Amount (mL) (ml) 1.0 Medication Dosage 4 mg/mL Treatment Polarity Negative to Negative Dispersive Electrode Placement mid-Tarsus PT-OP-T Assessment and Plan Start: 11/13/19 17:19 Freq: Status: Active Protocol: Document 11/20/19 11:19 DCW (Rec: 11/20/19 11:59 DCW [id number]) Physical Therapy Assessment Impairments Impairments Activity Tolerance,Functional Activities,Functional Mobility ,ROM,Soft Tissue Mobility, Strength Goals Four Impairment Pt unable to hike longer than six minutes without increased pain Jail Goal (LTG) Pt to report hiking 20 minutes without an increase in symptoms LTG Duration 01/13/20 Three Impairment Moderate hypertonia along bilateral gastrosoleus complex Jail Goal (LTG) Decrease tone to mild degree along gastrosoleus to allow for proper dorsiflexion during swing phase of gait. LTG Duration 01/13/20 Two Impairment Pt presents with limited R ankle ROM, 0? DF and 6? Eversion Jail Goal (LTG) Pt to demonstrate 10? R dorsiflexion and 12? R eversion in order to normalize gait pattern. LTG Duration 01/13/20 One Impairment Pt does not have an appropriate home exercise program Short Term Goal (STG) Pt to be independent and compliant with an appropriate HEP. STG Duration 12/13/19 Assessment Summary Assessment Pt back doing better today, able to tolerate proper positioning for TherEx and manual treatment. Pt tolerated treatment well, after using ice massage to decrease tenderness so she could better tolerate manual treatment. Physical Therapy Plan Frequency and Duration Frequency of Treatment 2x/Week Duration of Treatment 10 weeks Plan of Care Start Date 11/13/19 Plan of Care End Date 01/12/20 Therapeutic Interventions Therapeutic Interventions Aquatic Therapy,Balance Training,Gait Training,Home Exercise Program,Joint Mobilizations,Manual Therapy, Patient/Caregiver Education, Self-Care/Home Management,Soft Tissue Mobilization,Taping, Therapeutic Activities, Therapeutic Exercises Modalities Cold Pack/Ice Massage,Electric Stimulation,Hot Packs, Iontophoresis,Ultrasound Next Visit Focus/Plan Next Note Type Treatment Note Next Visit Plan Address ankle ROM, intrinsic foot strengthening, STM to calf, flexibility hamstrings, calf, hip flexor
--- NOTE | 2019-11-26 17:39 | PT.OTN ---
Current Diagnoses Stiffness of right ankle, not elsewhere classified (11/26/19) Plantar fascial fibromatosis (11/26/19) Metatarsalgia, right foot (11/26/19) Pain in right foot (11/26/19) Physical Therapy Treatment Note PT-OP-A Visit Information Start: 11/13/19 17:19 Freq: Status: Active Protocol: Document 11/26/19 16:45 DCW (Rec: 11/26/19 17:38 DCW [id number]) Out-Patient Physical Therapy Visit Information Visit Information Visit Type Treatment Note Visit Start Time 16:45 Visit Stop Time 17:30 Total Visit Minutes 45 Visit Number 4 Number of DIRECTOR PATIENT Visits 0 Evaluation Information Evaluation Date 11/13/19 PT-OP-B Current Condition Start: 11/13/19 17:19 Freq: Status: Active Protocol: Document 11/13/19 11:15 DCW (Rec: 11/13/19 17:54 DCW [id number]) Current Condition History of Current Condition Onset Date 7 year history Current Complaints R heel pain, ankle stiffness, difficulty with extended standing History of Current Condition Pt is a 38 year old female with a long standing history of plantar fasciitis. Pt notes that she was first diagnosed in 2012, received a cortisone shot, which made if feel magnificent for ~1 year, but ever since has slowly worsened . Pt reports she is in the most pain after working at her job at [employer], and when first getting up on her feet in the morning. 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 Pt wears a walking boot occasionally at work, which seems ot offer some relief. Pt enjoys hiking [place] with her young child, but tried to go out one month ago, and had to stop after only six minutes due to severe pain. PT-OP-C Subjective Start: 11/13/19 17:19 Freq: Status: Active Protocol: Document 11/26/19 16:45 DCW (Rec: 11/26/19 17:38 DCW [id number]) OP-PT Subjective Patient Comments Patient Comments Pt reports some increased heel pain after wearing her boot at work. PT-OP-F Manual Assessment Start: 11/13/19 17:19 Freq: Status: Active Protocol: Document 11/13/19 11:15 DCW (Rec: 11/13/19 17:54 DCW [id number]) Manual Assessments Soft Tissue Assessment Soft Tissue Mobility Assessment Tenderness to palpation 3/4: Wincing and withdraw along plantar fascia, particularly mid-tarsus Tenderness to palpation 3/4: Wincing and withdraw and moderate hypertonia along muscle belly of bilateral gastrosoleus complex. PT-OP-K Range of Motion Start: 11/13/19 17:19 Freq: Status: Active Protocol: Document 11/13/19 11:15 DCW (Rec: 11/13/19 17:54 DCW [id number]) Ankle and Foot Goniometric Range of Motion Ankle and Foot Right Active Testing Position Sitting Dorsiflexion with Knee Flexed 0 Plantarflexion 60 Inversion 30 Eversion 6 Left Active Testing Position Sitting Dorsiflexion with Knee Flexed 10 Plantarflexion 58 Inversion 40 Eversion 12 PT-OP-M Strength Start: 11/13/19 17:19 Freq: Status: Active Protocol: Document 11/13/19 11:15 DCW (Rec: 11/13/19 17:54 DCW [id number]) Ankle/Foot Strength Ankle and Foot Manual Muscle Testing Right Dorsiflexion (L4) 4- Good- Plantarflexion (S1) 4- Good- Inversion 4 Good Eversion (S1) 3+ Fair+ Left Dorsiflexion (L4) 4+ Good+ Plantarflexion (S1) 4 Good Inversion 4+ Good+ Eversion (S1) 4+ Good+ PT-OP-Q Treatments Start: 11/13/19 17:19 Freq: Status: Active Protocol: Document 11/26/19 16:45 DCW (Rec: 11/26/19 17:38 DCW [id number]) Therapeutic Exercises Prone Exercises 1 Prone Exercise Name Calf stretch Side bilateral Comments Manual stretch Standing Exercises 1 Standing Exercise Name Gastroc stretch Side bilateral Equipment Used SAUL Manual Therapy Treatment Soft Tissue Mobilization 3 Body Location Gastrosoleus STM Mobilization Type Strumming,Sustained Pressure Intensity/Depth Moderate Body Position Prone 2 Body Location B Plantar surface Mobilization Type Cross-Friction,Strumming 1 Body Location B Achilles insertion Mobilization Type Cross-Friction,Strumming Taping 1 Body Location L plantar fascia and gastroc taping Type of Tape Kinesio Tape PT-OP-R Modalities Start: 11/13/19 17:19 Freq: Status: Active Protocol: Document 11/26/19 16:45 DCW (Rec: 11/26/19 17:39 DCW [id number]) Iontophoresis Treatment Right Volar Foot Treatment Medication Dexamethasone (-) Medication Amount (mL) (ml) 1.0 Medication Dosage 4 mg/mL Treatment Polarity Negative to Negative Dispersive Electrode Placement Inferior to R Lateral Malleoli PT-OP-T Assessment and Plan Start: 11/13/19 17:19 Freq: Status: Active Protocol: Document 11/26/19 16:45 DCW (Rec: 11/26/19 17:38 DCW [id number]) Physical Therapy Assessment Impairments Impairments Activity Tolerance,Functional Activities,Functional Mobility ,ROM,Soft Tissue Mobility, Strength Goals Four Impairment Pt unable to hike longer than six minutes without increased pain Penitentiary Goal (LTG) Pt to report hiking 20 minutes without an increase in symptoms LTG Duration 01/13/20 Three Impairment Moderate hypertonia along bilateral gastrosoleus complex Penitentiary Goal (LTG) Decrease tone to mild degree along gastrosoleus to allow for proper dorsiflexion during swing phase of gait. LTG Duration 01/13/20 Two Impairment Pt presents with limited R ankle ROM, 0? DF and 6? Eversion [employer] Player Goal (LTG) Pt to demonstrate 10? R dorsiflexion and 12? R eversion in order to normalize gait pattern. LTG Duration 01/13/20 One Impairment Pt does not have an appropriate home exercise program Short Term Goal (STG) Pt to be independent and compliant with an appropriate HEP. STG Duration 12/13/19 Assessment Summary Assessment Pt progress varies with her activity level, sometimes feeling improvement, occasionally has decreased function following longer work day. Trial of K-tape on L and Ionto on R. Physical Therapy Plan Frequency and Duration Frequency of Treatment 2x/Week Duration of Treatment 10 weeks Plan of Care Start Date 11/13/19 Plan of Care End Date 01/12/20 Therapeutic Interventions Therapeutic Interventions Aquatic Therapy,Balance Training,Gait Training,Home Exercise Program,Joint Mobilizations,Manual Therapy, Patient/Caregiver Education, Self-Care/Home Management,Soft Tissue Mobilization,Taping, Therapeutic Activities, Therapeutic Exercises Modalities Cold Pack/Ice Massage,Electric Stimulation,Hot Packs, Iontophoresis,Ultrasound Next Visit Focus/Plan Next Note Type Treatment Note Next Visit Plan Address ankle ROM, intrinsic foot strengthening, STM to calf, flexibility hamstrings, calf, hip flexor
--- NOTE | 2019-12-05 12:49 | PT.OTN ---
Current Diagnoses Stiffness of right ankle, not elsewhere classified (12/05/19) Plantar fascial fibromatosis (12/05/19) Metatarsalgia, right foot (12/05/19) Pain in right foot (12/05/19) Physical Therapy Treatment Note PT-OP-A Visit Information Start: 11/13/19 17:19 Freq: Status: Active Protocol: Document 12/05/19 12:15 DCW (Rec: 12/05/19 12:49 DCW [id number]) Out-Patient Physical Therapy Visit Information Visit Information Visit Type Treatment Note Visit Note 15 min late Visit Start Time 12:15 Visit Stop Time 12:45 Total Visit Minutes 30 Visit Number 5 Number of FOOD SERVICE CLERK Visits 0 Evaluation Information Evaluation Date 11/13/19 PT-OP-B Current Condition Start: 11/13/19 17:19 Freq: Status: Active Protocol: Document 11/13/19 11:15 DCW (Rec: 11/13/19 17:54 DCW [id number]) Current Condition History of Current Condition Onset Date 7 year history Current Complaints R heel pain, ankle stiffness, difficulty with extended standing History of Current Condition Pt is a 38 year old female with a long standing history of plantar fasciitis. Pt notes that she was first diagnosed in 2012, received a cortisone shot, which made if feel magnificent for ~1 year, but ever since has slowly worsened . Pt reports she is in the most pain after working at her job at [employer], and when first getting up on her feet in the morning. 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 Pt wears a walking boot occasionally at work, which seems ot offer some relief. Pt enjoys hiking [place] with her young child, but tried to go out one month ago, and had to stop after only six minutes due to severe pain. PT-OP-C Subjective Start: 11/13/19 17:19 Freq: Status: Active Protocol: Document 12/05/19 12:15 DCW (Rec: 12/05/19 12:49 DCW [id number]) OP-PT Subjective Patient Comments Patient Comments I can feel the day that I missed. PT-OP-F Manual Assessment Start: 11/13/19 17:19 Freq: Status: Active Protocol: Document 11/13/19 11:15 DCW (Rec: 11/13/19 17:54 DCW [id number]) Manual Assessments Soft Tissue Assessment Soft Tissue Mobility Assessment Tenderness to palpation 3/4: Wincing and withdraw along plantar fascia, particularly mid-tarsus Tenderness to palpation 3/4: Wincing and withdraw and moderate hypertonia along muscle belly of bilateral gastrosoleus complex. PT-OP-K Range of Motion Start: 11/13/19 17:19 Freq: Status: Active Protocol: Document 11/13/19 11:15 DCW (Rec: 11/13/19 17:54 DCW [id number]) Ankle and Foot Goniometric Range of Motion Ankle and Foot Right Active Testing Position Sitting Dorsiflexion with Knee Flexed 0 Plantarflexion 60 Inversion 30 Eversion 6 Left Active Testing Position Sitting Dorsiflexion with Knee Flexed 10 Plantarflexion 58 Inversion 40 Eversion 12 PT-OP-M Strength Start: 11/13/19 17:19 Freq: Status: Active Protocol: Document 11/13/19 11:15 DCW (Rec: 11/13/19 17:54 DCW [id number]) Ankle/Foot Strength Ankle and Foot Manual Muscle Testing Right Dorsiflexion (L4) 4- Good- Plantarflexion (S1) 4- Good- Inversion 4 Good Eversion (S1) 3+ Fair+ Left Dorsiflexion (L4) 4+ Good+ Plantarflexion (S1) 4 Good Inversion 4+ Good+ Eversion (S1) 4+ Good+ PT-OP-Q Treatments Start: 11/13/19 17:19 Freq: Status: Active Protocol: Document 12/05/19 12:15 DCW (Rec: 12/05/19 12:49 DCW [id number]) Therapeutic Exercises Standing Exercises 1 Standing Exercise Name Gastroc stretch Side bilateral Equipment Used SAUL Manual Therapy Treatment Soft Tissue Mobilization 3 Body Location Gastrosoleus STM Mobilization Type Strumming,Sustained Pressure Intensity/Depth Moderate Body Position Prone 2 Body Location B Plantar surface Mobilization Type Cross-Friction,Strumming 1 Body Location B Achilles insertion Mobilization Type Cross-Friction,Strumming Joint Mobilizations 1 Joint Tibiotalar Direction posterior Grade III Body Position Sitting Taping 1 Body Location L plantar fascia and gastroc taping Type of Tape Kinesio Tape PT-OP-R Modalities Start: 11/13/19 17:19 Freq: Status: Active Protocol: Document 11/26/19 16:45 DCW (Rec: 11/26/19 17:39 DCW [id number]) Iontophoresis Treatment Right Volar Foot Treatment Medication Dexamethasone (-) Medication Amount (mL) (ml) 1.0 Medication Dosage 4 mg/mL Treatment Polarity Negative to Negative Dispersive Electrode Placement Inferior to R Lateral [place] PT-OP-T Assessment and Plan Start: 11/13/19 17:19 Freq: Status: Active Protocol: Document 12/05/19 12:15 DCW (Rec: 12/05/19 12:49 DCW [id number]) Physical Therapy Assessment Impairments Impairments Activity Tolerance,Functional Activities,Functional Mobility ,ROM,Soft Tissue Mobility, Strength Goals Four Impairment Pt unable to hike longer than six minutes without increased pain Shelter Goal (LTG) Pt to report hiking 20 minutes without an increase in symptoms LTG Duration 01/13/20 Three Impairment Moderate hypertonia along bilateral gastrosoleus complex Event Specialist Food Demonstrator Goal (LTG) Decrease tone to mild degree along gastrosoleus to allow for proper dorsiflexion during swing phase of gait. LTG Duration 01/13/20 Two Impairment Pt presents with limited R ankle ROM, 0? DF and 6? Eversion Event Specialist Food Demonstrator Goal (LTG) Pt to demonstrate 10? R dorsiflexion and 12? R eversion in order to normalize gait pattern. LTG Duration 01/13/20 One Impairment Pt does not have an appropriate home exercise program Short Term Goal (STG) Pt to be independent and compliant with an appropriate HEP. STG Duration 12/13/19 Assessment Summary Assessment Pt had increased tenderness today along right proximal medial gastroc, but decreased tenderness bilaterally along the plantar surface. Physical Therapy Plan Frequency and Duration Frequency of Treatment 2x/Week Duration of Treatment 10 weeks Plan of Care Start Date 11/13/19 Plan of Care End Date 01/12/20 Therapeutic Interventions Therapeutic Interventions Aquatic Therapy,Balance Training,Gait Training,Home Exercise Program,Joint Mobilizations,Manual Therapy, Patient/Caregiver Education, Self-Care/Home Management,Soft Tissue Mobilization,Taping, Therapeutic Activities, Therapeutic Exercises Modalities Cold Pack/Ice Massage,Electric Stimulation,Hot Packs, Iontophoresis,Ultrasound Next Visit Focus/Plan Next Note Type Treatment Note Next Visit Plan Address ankle ROM, intrinsic foot strengthening, STM to calf, flexibility hamstrings, calf, hip flexor
--- NOTE | 2019-12-10 10:43 | PT-OP ANOTE ---
Pt no showed appt today, left a message regarding and awareness of next appt 12/20/19 at 445 with KETTY Perez.
--- NOTE | 2019-12-13 11:36 | PT.OTN ---
Current Diagnoses Stiffness of right ankle, not elsewhere classified (12/13/19) Plantar fascial fibromatosis (12/13/19) Metatarsalgia, right foot (12/13/19) Pain in right foot (12/13/19) Physical Therapy Treatment Note PT-OP-A Visit Information Start: 11/13/19 17:19 Freq: Status: Active Protocol: Document 12/13/19 10:36 SP (Rec: 12/13/19 11:44 SP [id number]) Out-Patient Physical Therapy Visit Information Visit Information Visit Type Treatment Note Visit Start Time 10:36 Visit Stop Time 11:36 Total Visit Minutes 60 Visit Number 6 Number of PATIENT PLACEMENT COORDINATOR Visits 1 PT-OP-B Current Condition Start: 11/13/19 17:19 Freq: Status: Active Protocol: Document 11/13/19 11:15 DCW (Rec: 11/13/19 17:54 DCW [id number]) Current Condition History of Current Condition Onset Date 7 year history Current Complaints R heel pain, ankle stiffness, difficulty with extended standing History of Current Condition Pt is a 38 year old female with a long standing history of plantar fasciitis. Pt notes that she was first diagnosed in 2012, received a cortisone shot, which made if feel magnificent for ~1 year, but ever since has slowly worsened . Pt reports she is in the most pain after working at her job at [employer], and when first getting up on her feet in the morning. 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 Pt wears a walking boot occasionally at work, which seems ot offer some relief. Pt enjoys hiking [place] with her young child, but tried to go out one month ago, and had to stop after only six minutes due to severe pain. PT-OP-C Subjective Start: 11/13/19 17:19 Freq: Status: Active Protocol: Document 12/13/19 10:36 SP (Rec: 12/13/19 11:44 SP [id number]) OP-PT Subjective Patient Comments Patient Comments I am getting stabbing pains when in sitting lately not in WB, new. Pt received her custom orthotics and has tried them on for 5 min PT-OP-F Manual Assessment Start: 11/13/19 17:19 Freq: Status: Active Protocol: Document 11/13/19 11:15 DCW (Rec: 11/13/19 17:54 DCW [id number]) Manual Assessments Soft Tissue Assessment Soft Tissue Mobility Assessment Tenderness to palpation 3/4: Wincing and withdraw along plantar fascia, particularly mid-tarsus Tenderness to palpation 3/4: Wincing and withdraw and moderate hypertonia along muscle belly of bilateral gastrosoleus complex. PT-OP-K Range of Motion Start: 11/13/19 17:19 Freq: Status: Active Protocol: Document 11/13/19 11:15 DCW (Rec: 11/13/19 17:54 DCW [id number]) Ankle and Foot Goniometric Range of Motion Ankle and Foot Right Active Testing Position Sitting Dorsiflexion with Knee Flexed 0 Plantarflexion 60 Inversion 30 Eversion 6 Left Active Testing Position Sitting Dorsiflexion with Knee Flexed 10 Plantarflexion 58 Inversion 40 Eversion 12 PT-OP-M Strength Start: 11/13/19 17:19 Freq: Status: Active Protocol: Document 11/13/19 11:15 DCW (Rec: 11/13/19 17:54 DCW [id number]) Ankle/Foot Strength Ankle and Foot Manual Muscle Testing Right Dorsiflexion (L4) 4- Good- Plantarflexion (S1) 4- Good- Inversion 4 Good Eversion (S1) 3+ Fair+ Left Dorsiflexion (L4) 4+ Good+ Plantarflexion (S1) 4 Good Inversion 4+ Good+ Eversion (S1) 4+ Good+ PT-OP-Q Treatments Start: 11/13/19 17:19 Freq: Status: Active Protocol: Document 12/13/19 10:36 SP (Rec: 12/13/19 11:44 SP [id number]) Therapeutic Exercises Sitting Exercises arch lifts Sitting Exercise Name MTP flex lift w/PIP/IP ext Side bilateral Reps/Minutes x5 [place] plantar fascia stretch, PF and toe flexion with TB Reps/Minutes 1min Comments Teal band, pt to perform B Standing Exercises wt shift then toe raises Side bilateral Reps/Minutes x5 1 Standing Exercise Name Gastroc, soleus stretch Side bilateral Equipment Used SAUL, step Reps/Minutes 30 x2 Comments single LE at time, slow transition to soleus Manual Therapy Treatment Soft Tissue Mobilization 1 Body Location B tendon and insertion Mobilization Type Sustained Pressure Intensity/Depth Moderate Body Position Sitting Comments instruction self with PF/DF movement Joint Mobilizations 1 Joint Tibiotalar, MTP G II Direction posterior Grade III Body Position Sitting PT-OP-R Modalities Start: 11/13/19 17:19 Freq: Status: Active Protocol: Document 12/13/19 10:36 SP (Rec: 12/13/19 11:44 SP [id number]) Iontophoresis Treatment Right Volar Foot Treatment Medication Dexamethasone (-) Medication Amount (mL) (ml) 1.0 Medication Dosage 4 mg/mL Treatment Polarity Negative to Negative Dispersive Electrode Placement calcaneal plantar fascia attachment region bilateral PT-OP-T Assessment and Plan Start: 11/13/19 17:19 Freq: Status: Active Protocol: Document 12/13/19 10:36 SP (Rec: 12/13/19 11:44 SP [id number]) Physical Therapy Assessment Goals Four Impairment Pt unable to hike longer than six minutes without increased pain Fpc Goal (LTG) Pt to report hiking 20 minutes without an increase in symptoms LTG Duration 01/13/20 Three Impairment Moderate hypertonia along bilateral gastrosoleus complex Ticket Collector Goal (LTG) Decrease tone to mild degree along gastrosoleus to allow for proper dorsiflexion during swing phase of gait. LTG Duration 01/13/20 Two Impairment Pt presents with limited R ankle ROM, 0? DF and 6? Eversion Ticket Collector Goal (LTG) Pt to demonstrate 10? R dorsiflexion and 12? R eversion in order to normalize gait pattern. LTG Duration 01/13/20 One Impairment Pt does not have an appropriate home exercise program Short Term Goal (STG) Pt to be independent and compliant with an appropriate HEP. STG Duration 12/13/19 Assessment Summary Assessment Tx focused on manual and self instruction to assist home relief. Added foot intrinic exercises and flexibility into WB for decreased pain initially in am. Pt required cuing for set up and proper form during manual and ex with no increased pain. Changed iontophoresis placement plantal B anterior calcaneus today due to location of pain today. Physical Therapy Plan Frequency and Duration Frequency of Treatment 2x/Week Duration of Treatment 10 weeks Plan of Care Start Date 11/13/19 Plan of Care End Date 01/12/20 Therapeutic Interventions Therapeutic Interventions Aquatic Therapy,Balance Training,Gait Training,Home Exercise Program,Joint Mobilizations,Manual Therapy, Patient/Caregiver Education, Self-Care/Home Management,Soft Tissue Mobilization,Taping, Therapeutic Activities, Therapeutic Exercises Modalities Cold Pack/Ice Massage,Electric Stimulation,Hot Packs, Iontophoresis,Ultrasound Next Visit Focus/Plan Next Note Type Treatment Note Next Visit Plan Assess response to change in iontophoresis placement and added ankle intrinic lift seated and WB mobility. Address ankle ROM, intrinsic foot strengthening, STM to calf, flexibility hamstrings, calf, hip flexor
--- NOTE | 2019-12-20 17:40 | PT.OTN ---
Current Diagnoses Stiffness of right ankle, not elsewhere classified (12/20/19) Plantar fascial fibromatosis (12/20/19) Metatarsalgia, right foot (12/20/19) Pain in right foot (12/20/19) Physical Therapy Treatment Note PT-OP-A Visit Information Start: 11/13/19 17:19 Freq: Status: Active Protocol: Document 12/20/19 16:45 DCW (Rec: 12/20/19 17:40 DCW [id number]) Out-Patient Physical Therapy Visit Information Visit Information Visit Type Treatment Note Visit Start Time 16:45 Visit Stop Time 17:30 Total Visit Minutes 45 Visit Number 7 Number of BIOPHYSICS TEACHER Visits 0 Evaluation Information Evaluation Date 11/13/19 PT-OP-B Current Condition Start: 11/13/19 17:19 Freq: Status: Active Protocol: Document 11/13/19 11:15 DCW (Rec: 11/13/19 17:54 DCW [id number]) Current Condition History of Current Condition Onset Date 7 year history Current Complaints R heel pain, ankle stiffness, difficulty with extended standing History of Current Condition Pt is a 38 year old female with a long standing history of plantar fasciitis. Pt notes that she was first diagnosed in 2012, received a cortisone shot, which made if feel magnificent for ~1 year, but ever since has slowly worsened . Pt reports she is in the most pain after working at her job at [employer], and when first getting up on her feet in the morning. 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 Pt wears a walking boot occasionally at work, which seems ot offer some relief. Pt enjoys hiking [place] with her young child, but tried to go out one month ago, and had to stop after only six minutes due to severe pain. PT-OP-C Subjective Start: 11/13/19 17:19 Freq: Status: Active Protocol: Document 12/20/19 16:45 DCW (Rec: 12/20/19 17:40 DCW [id number]) OP-PT Subjective Patient Comments Patient Comments Pt ambulating better today, less pain, reports she is wearing her new custom orthotics, which have been helpful. PT-OP-F Manual Assessment Start: 11/13/19 17:19 Freq: Status: Active Protocol: Document 11/13/19 11:15 DCW (Rec: 11/13/19 17:54 DCW [id number]) Manual Assessments Soft Tissue Assessment Soft Tissue Mobility Assessment Tenderness to palpation 3/4: Wincing and withdraw along plantar fascia, particularly mid-tarsus Tenderness to palpation 3/4: Wincing and withdraw and moderate hypertonia along muscle belly of bilateral gastrosoleus complex. PT-OP-K Range of Motion Start: 11/13/19 17:19 Freq: Status: Active Protocol: Document 11/13/19 11:15 DCW (Rec: 11/13/19 17:54 DCW [id number]) Ankle and Foot Goniometric Range of Motion Ankle and Foot Right Active Testing Position Sitting Dorsiflexion with Knee Flexed 0 Plantarflexion 60 Inversion 30 Eversion 6 Left Active Testing Position Sitting Dorsiflexion with Knee Flexed 10 Plantarflexion 58 Inversion 40 Eversion 12 PT-OP-M Strength Start: 11/13/19 17:19 Freq: Status: Active Protocol: Document 11/13/19 11:15 DCW (Rec: 11/13/19 17:54 DCW [id number]) Ankle/Foot Strength Ankle and Foot Manual Muscle Testing Right Dorsiflexion (L4) 4- Good- Plantarflexion (S1) 4- Good- Inversion 4 Good Eversion (S1) 3+ Fair+ Left Dorsiflexion (L4) 4+ Good+ Plantarflexion (S1) 4 Good Inversion 4+ Good+ Eversion (S1) 4+ Good+ PT-OP-Q Treatments Start: 11/13/19 17:19 Freq: Status: Active Protocol: Document 12/20/19 16:45 DCW (Rec: 12/20/19 17:40 DCW [id number]) Therapeutic Exercises Standing Exercises 2 Standing Exercise Name Alternating eccentric heel raises Side bilateral 1 Standing Exercise Name Gastroc stretch Side bilateral Equipment Used SAUL Manual Therapy Treatment Soft Tissue Mobilization 3 Body Location Gastrosoleus STM Mobilization Type Strumming,Sustained Pressure Intensity/Depth Moderate Body Position Prone 2 Body Location B Plantar surface Mobilization Type Cross-Friction,Strumming 1 Body Location B Achilles insertion Mobilization Type Cross-Friction,Strumming Joint Mobilizations 1 Joint Tibiotalar, MTP G II Direction posterior Grade III Body Position Sitting PT-OP-R Modalities Start: 11/13/19 17:19 Freq: Status: Active Protocol: Document 12/20/19 16:45 DCW (Rec: 12/20/19 17:40 DCW [id number]) Ultrasound Therapy Treatment Right Lower Posterior Leg Treatment Duration (minutes) 8 Patient Position Prone Coupling Medium Ultrasound Gel Applicator Size (cm2) 5 Frequency Setting (mHz) 1 Intensity Setting (w/cm2) 1 PT-OP-T Assessment and Plan Start: 11/13/19 17:19 Freq: Status: Active Protocol: Document 12/20/19 16:45 DCW (Rec: 12/20/19 17:40 DCW [id number]) Physical Therapy Assessment Impairments Impairments Activity Tolerance,Functional Activities,Functional Mobility ,ROM,Soft Tissue Mobility, Strength Goals Four Impairment Pt unable to hike longer than six minutes without increased pain Subassembly Assembler Goal (LTG) Pt to report hiking 20 minutes without an increase in symptoms LTG Duration 01/13/20 Three Impairment Moderate hypertonia along bilateral gastrosoleus complex Fdc Goal (LTG) Decrease tone to mild degree along gastrosoleus to allow for proper dorsiflexion during swing phase of gait. LTG Duration 01/13/20 Two Impairment Pt presents with limited R ankle ROM, 0? DF and 6? Eversion Fdc Goal (LTG) Pt to demonstrate 10? R dorsiflexion and 12? R eversion in order to normalize gait pattern. LTG Duration 01/13/20 One Impairment Pt does not have an appropriate home exercise program Short Term Goal (STG) Pt to be independent and compliant with an appropriate HEP. STG Duration 12/13/19 Assessment Summary Assessment Other than continued tenderness and hypertonia in right soleus, pt overall doing very well. Some pain and tenderness in her first MTP joint today, both with heel rises and with joint mobilizations Physical Therapy Plan Frequency and Duration Frequency of Treatment 2x/Week Duration of Treatment 10 weeks Plan of Care Start Date 11/13/19 Plan of Care End Date 01/12/20 Therapeutic Interventions Therapeutic Interventions Aquatic Therapy,Balance Training,Gait Training,Home Exercise Program,Joint Mobilizations,Manual Therapy, Patient/Caregiver Education, Self-Care/Home Management,Soft Tissue Mobilization,Taping, Therapeutic Activities, Therapeutic Exercises Modalities Cold Pack/Ice Massage,Electric Stimulation,Hot Packs, Iontophoresis,Ultrasound Next Visit Focus/Plan Next Note Type Treatment Note Next Visit Plan Address ankle ROM, intrinsic foot strengthening, STM to calf, flexibility hamstrings, calf, hip flexor
--- NOTE | 2019-12-25 17:22 | PT.OTN ---
Current Diagnoses Stiffness of right ankle, not elsewhere classified (12/25/19) Plantar fascial fibromatosis (12/25/19) Metatarsalgia, right foot (12/25/19) Pain in right foot (12/25/19) Physical Therapy Treatment Note PT-OP-A Visit Information Start: 11/13/19 17:19 Freq: Status: Active Protocol: Document 12/25/19 16:37 DCW (Rec: 12/25/19 17:22 DCW [id number]) Out-Patient Physical Therapy Visit Information Visit Information Visit Type Treatment Note Visit Start Time 16:37 Visit Stop Time 17:20 Total Visit Minutes 43 Visit Number 8 Number of LABOR STANDARDS DIRECTOR Visits 0 Evaluation Information Evaluation Date 11/13/19 PT-OP-B Current Condition Start: 11/13/19 17:19 Freq: Status: Active Protocol: Document 11/13/19 11:15 DCW (Rec: 11/13/19 17:54 DCW [id number]) Current Condition History of Current Condition Onset Date 7 year history Current Complaints R heel pain, ankle stiffness, difficulty with extended standing History of Current Condition Pt is a 38 year old female with a long standing history of plantar fasciitis. Pt notes that she was first diagnosed in 2012, received a cortisone shot, which made if feel magnificent for ~1 year, but ever since has slowly worsened . Pt reports she is in the most pain after working at her job at [employer], and when first getting up on her feet in the morning. 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 Pt wears a walking boot occasionally at work, which seems ot offer some relief. Pt enjoys hiking [place] with her young child, but tried to go out one month ago, and had to stop after only six minutes due to severe pain. PT-OP-C Subjective Start: 11/13/19 17:19 Freq: Status: Active Protocol: Document 12/25/19 16:37 DCW (Rec: 12/25/19 17:22 DCW [id number]) OP-PT Subjective Patient Comments Patient Comments My left heel is bothering me quite a bit today. PT-OP-F Manual Assessment Start: 11/13/19 17:19 Freq: Status: Active Protocol: Document 11/13/19 11:15 DCW (Rec: 11/13/19 17:54 DCW [id number]) Manual Assessments Soft Tissue Assessment Soft Tissue Mobility Assessment Tenderness to palpation 3/4: Wincing and withdraw along plantar fascia, particularly mid-tarsus Tenderness to palpation 3/4: Wincing and withdraw and moderate hypertonia along muscle belly of bilateral gastrosoleus complex. PT-OP-K Range of Motion Start: 11/13/19 17:19 Freq: Status: Active Protocol: Document 11/13/19 11:15 DCW (Rec: 11/13/19 17:54 DCW [id number]) Ankle and Foot Goniometric Range of Motion Ankle and Foot Right Active Testing Position Sitting Dorsiflexion with Knee Flexed 0 Plantarflexion 60 Inversion 30 Eversion 6 Left Active Testing Position Sitting Dorsiflexion with Knee Flexed 10 Plantarflexion 58 Inversion 40 Eversion 12 PT-OP-M Strength Start: 11/13/19 17:19 Freq: Status: Active Protocol: Document 11/13/19 11:15 DCW (Rec: 11/13/19 17:54 MSW [id number]) Ankle/Foot Strength Ankle and Foot Manual Muscle Testing Right Dorsiflexion (L4) 4- Good- Plantarflexion (S1) 4- Good- Inversion 4 Good Eversion (S1) 3+ Fair+ Left Dorsiflexion (L4) 4+ Good+ Plantarflexion (S1) 4 Good Inversion 4+ Good+ Eversion (S1) 4+ Good+ PT-OP-Q Treatments Start: 11/13/19 17:19 Freq: Status: Active Protocol: Document 12/25/19 16:37 DCW (Rec: 12/25/19 17:22 DCW [id number]) Therapeutic Exercises Sitting Exercises arch lifts Sitting Exercise Name MTP flex lift w/PIP/IP ext Side bilateral Reps/Minutes x5 Standing Exercises 1 Standing Exercise Name Gastroc stretch Side bilateral Equipment Used SAUL Manual Therapy Treatment Soft Tissue Mobilization 3 Body Location Gastrosoleus STM Mobilization Type Strumming,Sustained Pressure Intensity/Depth Moderate Body Position Prone 2 Body Location B Plantar surface Mobilization Type Cross-Friction,Strumming 1 Body Location B Achilles insertion Mobilization Type Cross-Friction,Strumming Joint Mobilizations 1 Joint Tibiotalar, MTP G II Direction posterior Grade III Body Position Sitting PT-OP-R Modalities Start: 11/13/19 17:19 Freq: Status: Active Protocol: Document 12/25/19 16:37 DCW (Rec: 12/25/19 17:22 DCW [id number]) Ultrasound Therapy Treatment Left Lower Posterior Leg Treatment Duration (minutes) 8 Patient Position Prone Coupling Medium Ultrasound Gel Applicator Size (cm2) 5 Frequency Setting (mHz) 1 Intensity Setting (w/cm2) 1 PT-OP-T Assessment and Plan Start: 11/13/19 17:19 Freq: Status: Active Protocol: Document 12/25/19 16:37 DCW (Rec: 12/25/19 17:22 DCW [id number]) Physical Therapy Assessment Impairments Impairments Activity Tolerance,Functional Activities,Functional Mobility ,ROM,Soft Tissue Mobility, Strength Goals Four Impairment Pt unable to hike longer than six minutes without increased pain Care Home Goal (LTG) Pt to report hiking 20 minutes without an increase in symptoms LTG Duration 01/13/20 Three Impairment Moderate hypertonia along bilateral gastrosoleus complex Care Home Goal (LTG) Decrease tone to mild degree along gastrosoleus to allow for proper dorsiflexion during swing phase of gait. LTG Duration 01/13/20 Two Impairment Pt presents with limited R ankle ROM, 0? DF and 6? Eversion Care Home Goal (LTG) Pt to demonstrate 10? R dorsiflexion and 12? R eversion in order to normalize gait pattern. LTG Duration 01/13/20 One Impairment Pt does not have an appropriate home exercise program Short Term Goal (STG) Pt to be independent and compliant with an appropriate HEP. STG Duration 12/13/19 Assessment Summary Assessment Pt's right heel, which previously had been her worse side, was doing well today, but her left heel was much more flared up. Pt very tender with palpation and STM. Pt leaving state for a month, and will continue therapy upon return. Physical Therapy Plan Frequency and Duration Frequency of Treatment 2x/Week Duration of Treatment 10 weeks Plan of Care Start Date 11/13/19 Plan of Care End Date 01/12/20 Therapeutic Interventions Therapeutic Interventions Aquatic Therapy,Balance Training,Gait Training,Home Exercise Program,Joint Mobilizations,Manual Therapy, Patient/Caregiver Education, Self-Care/Home Management,Soft Tissue Mobilization,Taping, Therapeutic Activities, Therapeutic Exercises Modalities Cold Pack/Ice Massage,Electric Stimulation,Hot Packs, Iontophoresis,Ultrasound Hold Physical Therapy Reason For Hold Out of state vacation Next Visit Focus/Plan Next Note Type Treatment Note Next Visit Plan Address ankle ROM, intrinsic foot strengthening, STM to calf, flexibility hamstrings, calf, hip flexor
--- NOTE | 2020-02-28 10:55 | PT.OTN ---
Current Diagnoses Stiffness of right ankle, not elsewhere classified (02/28/20) Plantar fascial fibromatosis (02/28/20) Metatarsalgia, right foot (02/28/20) Pain in right foot (02/28/20) Physical Therapy Treatment Note PT-OP-A Visit Information Start: 11/13/19 17:19 Freq: Status: Active Protocol: Document 02/28/20 09:50 DCW (Rec: 02/28/20 10:42 DCW [id number]) Out-Patient Physical Therapy Visit Information Visit Information Visit Type Progress Note Visit Start Time 09:50 Visit Stop Time 10:30 Total Visit Minutes 40 Visit Number 9 Number of REDEYE GUNNER Visits 0 Evaluation Information Evaluation Date 11/13/19 PT-OP-B Current Condition Start: 11/13/19 17:19 Freq: Status: Active Protocol: Document 11/13/19 11:15 DCW (Rec: 11/13/19 17:54 DCW [id number]) Current Condition History of Current Condition Onset Date 7 year history Current Complaints R heel pain, ankle stiffness, difficulty with extended standing History of Current Condition Pt is a 38 year old female with a long standing history of plantar fasciitis. Pt notes that she was first diagnosed in 2012, received a cortisone shot, which made if feel magnificent for ~1 year, but ever since has slowly worsened . Pt reports she is in the most pain after working at her job at [employer], and when first getting up on her feet in the morning. 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 Pt wears a walking boot occasionally at work, which seems ot offer some relief. Pt enjoys hiking [place] with her young child, but tried to go out one month ago, and had to stop after only six minutes due to severe pain. PT-OP-C Subjective Start: 11/13/19 17:19 Freq: Status: Active Protocol: Document 02/28/20 09:50 DCW (Rec: 02/28/20 10:42 DCW [id number]) OP-PT Subjective Patient Comments Patient Comments I'm really sore after that long trip. I don't want to say it, but it's almost like I'm back to day one. PT-OP-F Manual Assessment Start: 11/13/19 17:19 Freq: Status: Active Protocol: Document 02/28/20 09:50 DCW (Rec: 02/28/20 10:01 DCW [id number]) Manual Assessments Soft Tissue Assessment Soft Tissue Mobility Assessment Tenderness to palpation 3/4: Wincing and withdraw along R plantar fascia, particularly mid-tarsus, as well as bilateral posterior tib insertion point Tenderness to palpation 3/4: Wincing and withdraw and moderate hypertonia along muscle belly of bilateral gastrosoleus complex. PT-OP-K Range of Motion Start: 11/13/19 17:19 Freq: Status: Active Protocol: Document 02/28/20 09:50 DCW (Rec: 02/28/20 10:01 DCW [id number]) Ankle and Foot Goniometric Range of Motion Ankle and Foot Right Active Testing Position Sitting Dorsiflexion with Knee Flexed 3 Plantarflexion 62 Inversion 30 Eversion 11 Left Active Testing Position Sitting Dorsiflexion with Knee Flexed 10 Plantarflexion 56 Inversion 36 Eversion 20 PT-OP-M Strength Start: 11/13/19 17:19 Freq: Status: Active Protocol: Document 02/28/20 09:50 DCW (Rec: 02/28/20 10:01 DCW [id number]) Ankle/Foot Strength Ankle and Foot Manual Muscle Testing Right Dorsiflexion (L4) 4- Good- Plantarflexion (S1) 4- Good- Inversion 4 Good Eversion (S1) 4- Good- Left Dorsiflexion (L4) 4+ Good+ Plantarflexion (S1) 4 Good Inversion 4+ Good+ Eversion (S1) 4+ Good+ PT-OP-Q Treatments Start: 11/13/19 17:19 Freq: Status: Active Protocol: Document 02/28/20 09:50 DCW (Rec: 02/28/20 10:42 DCW [id number]) Manual Therapy Treatment Soft Tissue Mobilization 4 Body Location B Posterior Tib Mobilization Type Strumming,Sustained Pressure 3 Body Location Gastrosoleus STM Mobilization Type Strumming,Sustained Pressure Intensity/Depth Moderate Body Position Prone 2 Body Location R Plantar surface Mobilization Type Cross-Friction,Strumming 1 Body Location B Achilles insertion Mobilization Type Cross-Friction,Strumming Joint Mobilizations 1 Joint Tibiotalar, MTP G II Direction posterior Grade III Body Position Sitting Other Other Manual Treatments Manual testing PT-OP-R Modalities Start: 11/13/19 17:19 Freq: Status: Active Protocol: Document 12/25/19 16:37 DCW (Rec: 12/25/19 17:22 DCW [id number]) Ultrasound Therapy Treatment Left Lower Posterior Leg Treatment Duration (minutes) 8 Patient Position Prone Coupling Medium Ultrasound Gel Applicator Size (cm2) 5 Frequency Setting (mHz) 1 Intensity Setting (w/cm2) 1 PT-OP-T Assessment and Plan Start: 11/13/19 17:19 Freq: Status: Active Protocol: Document 02/28/20 09:50 DCW (Rec: 02/28/20 10:42 DCW [id number]) Physical Therapy Assessment Impairments Impairments Activity Tolerance,Functional Activities,Functional Mobility ,ROM,Soft Tissue Mobility, Strength Goals Four Impairment Pt unable to hike longer than six minutes without increased pain Usp Goal (LTG) Pt to report hiking 20 minutes without an increase in symptoms LTG Duration 04/29/20 Three Impairment Moderate hypertonia along bilateral gastrosoleus complex Project Technician Goal (LTG) Decrease tone to mild degree along gastrosoleus to allow for proper dorsiflexion during swing phase of gait. LTG Duration 04/29/20 Two Impairment Pt presents with limited R ankle ROM, 0? DF and 6? Eversion Project Technician Goal (LTG) Pt to demonstrate 10? R dorsiflexion and 12? R eversion in order to normalize gait pattern. LTG Duration 04/29/20 One Impairment Pt does not have an appropriate home exercise program Short Term Goal (STG) Pt to be independent and compliant with an appropriate HEP. STG Duration 03/30/20 - Improving compliance Assessment Summary Assessment Pt returns today following a two month absence from therapy due to a cross-country road trip. Pt overall has regressed a little bit pain-callejas, but her ROM and strength have both improved. Skilled PT still indicated to help decrease pain and tone throughout bilateral calf and plantar surface. Physical Therapy Plan Frequency and Duration Frequency of Treatment 2x/Week Duration of Treatment 10 weeks Plan of Care Start Date 02/28/20 Plan of Care End Date 05/08/20 Therapeutic Interventions Therapeutic Interventions Aquatic Therapy,Balance Training,Gait Training,Home Exercise Program,Joint Mobilizations,Manual Therapy, Patient/Caregiver Education, Self-Care/Home Management,Soft Tissue Mobilization,Taping, Therapeutic Activities, Therapeutic Exercises Modalities Cold Pack/Ice Massage,Electric Stimulation,Hot Packs, Iontophoresis,Ultrasound Next Visit Focus/Plan Next Note Type Treatment Note Next Visit Plan Address ankle ROM, intrinsic foot strengthening, STM to calf, flexibility hamstrings, calf, hip flexor
--- NOTE | 2020-02-28 10:56 | PT.OPPOC ---
Physical, Occupational & Speech Therapy At [facility] Current Diagnoses Stiffness of right ankle, not elsewhere classified (02/28/20) Plantar fascial fibromatosis (02/28/20) Metatarsalgia, right foot (02/28/20) Pain in right foot (02/28/20) Visit Care Team Role Provider Type Justyna Beltran Primary Care Provider Non-Staff Specialty: Medical Address: [address] [place] [address], [id number] Email: Jaymie Arredondo DPM Attending Provider Physician Referring Provider Specialty: Podiatry Address: [address] [place] [address], [id number] Email: [email or web address] Plan Of Care PT-OP-T Assessment and Plan Start: 11/13/19 17:19 Freq: Status: Active Protocol: Document 02/28/20 09:50 DCW (Rec: 02/28/20 10:42 DCW [id number]) Physical Therapy Assessment Impairments Impairments Activity Tolerance,Functional Activities,Functional Mobility ,ROM,Soft Tissue Mobility, Strength Goals Four Impairment Pt unable to hike longer than six minutes without increased pain Usp Goal (LTG) Pt to report hiking 20 minutes without an increase in symptoms LTG Duration 04/29/20 Three Impairment Moderate hypertonia along bilateral gastrosoleus complex Supervisor Respiratory Goal (LTG) Decrease tone to mild degree along gastrosoleus to allow for proper dorsiflexion during swing phase of gait. LTG Duration 04/29/20 Two Impairment Pt presents with limited R ankle ROM, 0? DF and 6? Eversion Supervisor Respiratory Goal (LTG) Pt to demonstrate 10? R dorsiflexion and 12? R eversion in order to normalize gait pattern. LTG Duration 04/29/20 One Impairment Pt does not have an appropriate home exercise program Short Term Goal (STG) Pt to be independent and compliant with an appropriate HEP. STG Duration 03/30/20 - Improving compliance Assessment Summary Assessment Pt returns today following a two month absence from therapy due to a cross-country road trip. Pt overall has regressed a little bit pain-callejas, but her ROM and strength have both improved. Skilled PT still indicated to help decrease pain and tone throughout bilateral calf and plantar surface. Physical Therapy Plan Frequency and Duration Frequency of Treatment 2x/Week Duration of Treatment 10 weeks Plan of Care Start Date 02/28/20 Plan of Care End Date 05/08/20 Therapeutic Interventions Therapeutic Interventions Aquatic Therapy,Balance Training,Gait Training,Home Exercise Program,Joint Mobilizations,Manual Therapy, Patient/Caregiver Education, Self-Care/Home Management,Soft Tissue Mobilization,Taping, Therapeutic Activities, Therapeutic Exercises Modalities Cold Pack/Ice Massage,Electric Stimulation,Hot Packs, Iontophoresis,Ultrasound Next Visit Focus/Plan Next Note Type Treatment Note Next Visit Plan Address ankle ROM, intrinsic foot strengthening, STM to calf, flexibility hamstrings, calf, hip flexor Plan of Care Dates Plan of Care Start Date 02/28/20 Plan of Care End Date 05/08/20 Electronically Signed by: Anjel Wood, PT 02/28/20 9724 Please Sign and Return: I have reviewed this Plan of Care and certify that the skilled therapy services above are required to meet the patient?s needs. Physician Signature Date Printed Name and Credentials Clinical Instructor Signature Printed Name and Credentials
--- NOTE | 2020-03-04 14:31 | PT.OTN ---
Current Diagnoses Stiffness of right ankle, not elsewhere classified (03/04/20) Plantar fascial fibromatosis (03/04/20) Metatarsalgia, right foot (03/04/20) Pain in right foot (03/04/20) Physical Therapy Treatment Note PT-OP-A Visit Information Start: 11/13/19 17:19 Freq: Status: Active Protocol: Document 03/04/20 13:50 DCW (Rec: 03/04/20 14:31 DCW [id number]) Out-Patient Physical Therapy Visit Information Visit Information Visit Type Treatment Note Visit Start Time 13:50 Visit Stop Time 14:30 Total Visit Minutes 40 Visit Number 10 Number of COVER MACHINE OPERATOR Visits 0 Evaluation Information Evaluation Date 11/13/19 PT-OP-B Current Condition Start: 11/13/19 17:19 Freq: Status: Active Protocol: Document 11/13/19 11:15 DCW (Rec: 11/13/19 17:54 DCW [id number]) Current Condition History of Current Condition Onset Date 7 year history Current Complaints R heel pain, ankle stiffness, difficulty with extended standing History of Current Condition Pt is a 38 year old female with a long standing history of plantar fasciitis. Pt notes that she was first diagnosed in 2012, received a cortisone shot, which made if feel magnificent for ~1 year, but ever since has slowly worsened . Pt reports she is in the most pain after working at her job at [employer], and when first getting up on her feet in the morning. 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 Pt wears a walking boot occasionally at work, which seems ot offer some relief. Pt enjoys hiking [place] with her young child, but tried to go out one month ago, and had to stop after only six minutes due to severe pain. PT-OP-C Subjective Start: 11/13/19 17:19 Freq: Status: Active Protocol: Document 03/04/20 13:50 DCW (Rec: 03/04/20 14:31 DCW [id number]) OP-PT Subjective Patient Comments Patient Comments Pt reports her legs are doing well today, but admits she hasn't been up on her feet much yet today. PT-OP-F Manual Assessment Start: 11/13/19 17:19 Freq: Status: Active Protocol: Document 02/28/20 09:50 DCW (Rec: 02/28/20 10:01 DCW [id number]) Manual Assessments Soft Tissue Assessment Soft Tissue Mobility Assessment Tenderness to palpation 3/4: Wincing and withdraw along R plantar fascia, particularly mid-tarsus, as well as bilateral posterior tib insertion point Tenderness to palpation 3/4: Wincing and withdraw and moderate hypertonia along muscle belly of bilateral gastrosoleus complex. PT-OP-K Range of Motion Start: 11/13/19 17:19 Freq: Status: Active Protocol: Document 02/28/20 09:50 DCW (Rec: 02/28/20 10:01 DCW [id number]) Ankle and Foot Goniometric Range of Motion Ankle and Foot Right Active Testing Position Sitting Dorsiflexion with Knee Flexed 3 Plantarflexion 62 Inversion 30 Eversion 11 Left Active Testing Position Sitting Dorsiflexion with Knee Flexed 10 Plantarflexion 56 Inversion 36 Eversion 20 PT-OP-M Strength Start: 11/13/19 17:19 Freq: Status: Active Protocol: Document 02/28/20 09:50 DCW (Rec: 02/28/20 10:01 DCW [id number]) Ankle/Foot Strength Ankle and Foot Manual Muscle Testing Right Dorsiflexion (L4) 4- Good- Plantarflexion (S1) 4- Good- Inversion 4 Good Eversion (S1) 4- Good- Left Dorsiflexion (L4) 4+ Good+ Plantarflexion (S1) 4 Good Inversion 4+ Good+ Eversion (S1) 4+ Good+ PT-OP-Q Treatments Start: 11/13/19 17:19 Freq: Status: Active Protocol: Document 03/04/20 13:50 DCW (Rec: 03/04/20 14:31 DCW [id number]) Therapeutic Exercises Sitting Exercises 1 Sitting Exercise Name Ankle inversion/eversion Side bilateral Resistance Lv 3 Equipment Used T-band Standing Exercises 2 Standing Exercise Name Alternating eccentric heel raises Side bilateral 1 Standing Exercise Name Gastroc stretch Side bilateral Equipment Used SAUL Manual Therapy Treatment Soft Tissue Mobilization 4 Body Location B Posterior Tib Mobilization Type Strumming,Sustained Pressure 3 Body Location Gastrosoleus STM Mobilization Type Strumming,Sustained Pressure Intensity/Depth Moderate Body Position Prone 2 Body Location R Plantar surface Mobilization Type Cross-Friction,Strumming 1 Body Location B Achilles insertion Mobilization Type Cross-Friction,Strumming Joint Mobilizations 1 Joint Tibiotalar, MTP G II Direction posterior Grade III Body Position Sitting PT-OP-R Modalities Start: 11/13/19 17:19 Freq: Status: Active Protocol: Document 12/25/19 16:37 DCW (Rec: 12/25/19 17:22 DCW [id number]) Ultrasound Therapy Treatment Left Lower Posterior Leg Treatment Duration (minutes) 8 Patient Position Prone Coupling Medium Ultrasound Gel Applicator Size (cm2) 5 Frequency Setting (mHz) 1 Intensity Setting (w/cm2) 1 PT-OP-T Assessment and Plan Start: 11/13/19 17:19 Freq: Status: Active Protocol: Document 03/04/20 13:50 DCW (Rec: 03/04/20 14:31 DCW [id number]) Physical Therapy Assessment Impairments Impairments Activity Tolerance,Functional Activities,Functional Mobility ,ROM,Soft Tissue Mobility, Strength Goals Four Impairment Pt unable to hike longer than six minutes without increased pain Snf Goal (LTG) Pt to report hiking 20 minutes without an increase in symptoms LTG Duration 04/29/20 Three Impairment Moderate hypertonia along bilateral gastrosoleus complex Medical Front Desk Coordinator Goal (LTG) Decrease tone to mild degree along gastrosoleus to allow for proper dorsiflexion during swing phase of gait. LTG Duration 04/29/20 Two Impairment Pt presents with limited R ankle ROM, 0? DF and 6? Eversion Snf Goal (LTG) Pt to demonstrate 10? R dorsiflexion and 12? R eversion in order to normalize gait pattern. LTG Duration 04/29/20 One Impairment Pt does not have an appropriate home exercise program Short Term Goal (STG) Pt to be independent and compliant with an appropriate HEP. STG Duration 03/30/20 - Improving compliance Assessment Summary Assessment Pt showing significant response to tenderness with palpation, however admits that she feels it is worth it, because she is feeling better overall. Physical Therapy Plan Frequency and Duration Frequency of Treatment 2x/Week Duration of Treatment 10 weeks Plan of Care Start Date 02/28/20 Plan of Care End Date 05/08/20 Therapeutic Interventions Therapeutic Interventions Aquatic Therapy,Balance Training,Gait Training,Home Exercise Program,Joint Mobilizations,Manual Therapy, Patient/Caregiver Education, Self-Care/Home Management,Soft Tissue Mobilization,Taping, Therapeutic Activities, Therapeutic Exercises Modalities Cold Pack/Ice Massage,Electric Stimulation,Hot Packs, Iontophoresis,Ultrasound Next Visit Focus/Plan Next Note Type Treatment Note Next Visit Plan Address ankle ROM, intrinsic foot strengthening, STM to calf, flexibility hamstrings, calf, hip flexor
--- NOTE | 2020-03-07 09:44 | PT.OTN ---
Current Diagnoses Stiffness of right ankle, not elsewhere classified (03/07/20) Plantar fascial fibromatosis (03/07/20) Metatarsalgia, right foot (03/07/20) Pain in right foot (03/07/20) Physical Therapy Treatment Note PT-OP-A Visit Information Start: 11/13/19 17:19 Freq: Status: Active Protocol: Document 03/07/20 09:00 DCW (Rec: 03/07/20 09:44 DCW [id number]) Out-Patient Physical Therapy Visit Information Visit Information Visit Type Treatment Note Visit Start Time 09:00 Visit Stop Time 09:45 Total Visit Minutes 45 Visit Number 11 Number of NETWORK FIELD ENGINEER Visits 0 Evaluation Information Evaluation Date 11/13/19 PT-OP-B Current Condition Start: 11/13/19 17:19 Freq: Status: Active Protocol: Document 11/13/19 11:15 DCW (Rec: 11/13/19 17:54 DCW [id number]) Current Condition History of Current Condition Onset Date 7 year history Current Complaints R heel pain, ankle stiffness, difficulty with extended standing History of Current Condition Pt is a 38 year old female with a long standing history of plantar fasciitis. Pt notes that she was first diagnosed in 2012, received a cortisone shot, which made if feel magnificent for ~1 year, but ever since has slowly worsened . Pt reports she is in the most pain after working at her job at [employer], and when first getting up on her feet in the morning. 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 Pt wears a walking boot occasionally at work, which seems ot offer some relief. Pt enjoys hiking [place] with her young child, but tried to go out one month ago, and had to stop after only six minutes due to severe pain. PT-OP-C Subjective Start: 11/13/19 17:19 Freq: Status: Active Protocol: Document 03/07/20 09:00 DCW (Rec: 03/07/20 09:44 DCW [id number]) OP-PT Subjective Patient Comments Patient Comments Pt notes she had some brief right foot pain earlier today. PT-OP-F Manual Assessment Start: 11/13/19 17:19 Freq: Status: Active Protocol: Document 02/28/20 09:50 DCW (Rec: 02/28/20 10:01 DCW [id number]) Manual Assessments Soft Tissue Assessment Soft Tissue Mobility Assessment Tenderness to palpation 3/4: Wincing and withdraw along R plantar fascia, particularly mid-tarsus, as well as bilateral posterior tib insertion point Tenderness to palpation 3/4: Wincing and withdraw and moderate hypertonia along muscle belly of bilateral gastrosoleus complex. PT-OP-K Range of Motion Start: 11/13/19 17:19 Freq: Status: Active Protocol: Document 02/28/20 09:50 DCW (Rec: 02/28/20 10:01 DCW [id number]) Ankle and Foot Goniometric Range of Motion Ankle and Foot Right Active Testing Position Sitting Dorsiflexion with Knee Flexed 3 Plantarflexion 62 Inversion 30 Eversion 11 Left Active Testing Position Sitting Dorsiflexion with Knee Flexed 10 Plantarflexion 56 Inversion 36 Eversion 20 PT-OP-M Strength Start: 11/13/19 17:19 Freq: Status: Active Protocol: Document 02/28/20 09:50 DCW (Rec: 02/28/20 10:01 DCW [id number]) Ankle/Foot Strength Ankle and Foot Manual Muscle Testing Right Dorsiflexion (L4) 4- Good- Plantarflexion (S1) 4- Good- Inversion 4 Good Eversion (S1) 4- Good- Left Dorsiflexion (L4) 4+ Good+ Plantarflexion (S1) 4 Good Inversion 4+ Good+ Eversion (S1) 4+ Good+ PT-OP-Q Treatments Start: 11/13/19 17:19 Freq: Status: Active Protocol: Document 03/07/20 09:00 DCW (Rec: 03/07/20 09:44 DCW [id number]) Therapeutic Exercises Sitting Exercises 1 Sitting Exercise Name Ankle inversion/eversion Side bilateral Resistance Lv 3 Equipment Used T-band Standing Exercises 1 Standing Exercise Name Gastroc stretch Side bilateral Equipment Used SAUL Manual Therapy Treatment Soft Tissue Mobilization 4 Body Location B Posterior Tib Mobilization Type Strumming,Sustained Pressure 3 Body Location Gastrosoleus STM Mobilization Type Strumming,Sustained Pressure Intensity/Depth Moderate Body Position Prone 2 Body Location R Plantar surface Mobilization Type Cross-Friction,Strumming 1 Body Location B Achilles insertion Mobilization Type Cross-Friction,Strumming Joint Mobilizations 1 Joint Tibiotalar, MTP G II Direction posterior Grade III Body Position Sitting PT-OP-R Modalities Start: 11/13/19 17:19 Freq: Status: Active Protocol: Document 12/25/19 16:37 DCW (Rec: 12/25/19 17:22 DCW [id number]) Ultrasound Therapy Treatment Left Lower Posterior Leg Treatment Duration (minutes) 8 Patient Position Prone Coupling Medium Ultrasound Gel Applicator Size (cm2) 5 Frequency Setting (mHz) 1 Intensity Setting (w/cm2) 1 PT-OP-T Assessment and Plan Start: 11/13/19 17:19 Freq: Status: Active Protocol: Document 03/07/20 09:00 DCW (Rec: 03/07/20 09:44 DCW [id number]) Physical Therapy Assessment Impairments Impairments Activity Tolerance,Functional Activities,Functional Mobility ,ROM,Soft Tissue Mobility, Strength Goals Four Impairment Pt unable to hike longer than six minutes without increased pain Bias Machine Operator Goal (LTG) Pt to report hiking 20 minutes without an increase in symptoms LTG Duration 04/29/20 Three Impairment Moderate hypertonia along bilateral gastrosoleus complex [facility] Goal (LTG) Decrease tone to mild degree along gastrosoleus to allow for proper dorsiflexion during swing phase of gait. LTG Duration 04/29/20 Two Impairment Pt presents with limited R ankle ROM, 0? DF and 6? Eversion [facility] Goal (LTG) Pt to demonstrate 10? R dorsiflexion and 12? R eversion in order to normalize gait pattern. LTG Duration 04/29/20 One Impairment Pt does not have an appropriate home exercise program Short Term Goal (STG) Pt to be independent and compliant with an appropriate HEP. STG Duration 03/30/20 - Improving compliance Assessment Summary Assessment Pt much better today with tenderness to palpation. Limited areas that caused her discomfort, mainly right middle gastroc and left Achilles insertion. Physical Therapy Plan Frequency and Duration Frequency of Treatment 2x/Week Duration of Treatment 10 weeks Plan of Care Start Date 02/28/20 Plan of Care End Date 05/08/20 Therapeutic Interventions Therapeutic Interventions Aquatic Therapy,Balance Training,Gait Training,Home Exercise Program,Joint Mobilizations,Manual Therapy, Patient/Caregiver Education, Self-Care/Home Management,Soft Tissue Mobilization,Taping, Therapeutic Activities, Therapeutic Exercises Modalities Cold Pack/Ice Massage,Electric Stimulation,Hot Packs, Iontophoresis,Ultrasound Next Visit Focus/Plan Next Note Type Treatment Note Next Visit Plan Address ankle ROM, intrinsic foot strengthening, STM to calf, flexibility hamstrings, calf, hip flexor
--- NOTE | 2020-03-10 14:30 | PT.OTN ---
Current Diagnoses Stiffness of right ankle, not elsewhere classified (03/10/20) Plantar fascial fibromatosis (03/10/20) Metatarsalgia, right foot (03/10/20) Pain in right foot (03/10/20) Physical Therapy Treatment Note PT-OP-A Visit Information Start: 11/13/19 17:19 Freq: Status: Active Protocol: Document 03/10/20 18:05 MA (Rec: 03/10/20 18:17 MA [id number]) Out-Patient Physical Therapy Visit Information Visit Information Visit Type Treatment Note Visit Start Time 13:45 Visit Stop Time 15:28 Total Visit Minutes 43 Visit Number 12 Number of ALLERGY SPECIALIST Visits 1 PT-OP-B Current Condition Start: 11/13/19 17:19 Freq: Status: Active Protocol: Document 11/13/19 11:15 DCW (Rec: 11/13/19 17:54 DCW [id number]) Current Condition History of Current Condition Onset Date 7 year history Current Complaints R heel pain, ankle stiffness, difficulty with extended standing History of Current Condition Pt is a 38 year old female with a long standing history of plantar fasciitis. Pt notes that she was first diagnosed in 2012, received a cortisone shot, which made if feel magnificent for ~1 year, but ever since has slowly worsened . Pt reports she is in the most pain after working at her job at [employer], and when first getting up on her feet in the morning. 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 Pt wears a walking boot occasionally at work, which seems ot offer some relief. Pt enjoys hiking [place] with her young child, but tried to go out one month ago, and had to stop after only six minutes due to severe pain. 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 Pt reports she has been doing HEP every day except 03/09 due to daughter being sick PT-OP-F Manual Assessment Start: 11/13/19 17:19 Freq: Status: Active Protocol: Document 02/28/20 09:50 DCW (Rec: 02/28/20 10:01 DCW [id number]) Manual Assessments Soft Tissue Assessment Soft Tissue Mobility Assessment Tenderness to palpation 3/4: Wincing and withdraw along R plantar fascia, particularly mid-tarsus, as well as bilateral posterior tib insertion point Tenderness to palpation 3/4: Wincing and withdraw and moderate hypertonia along muscle belly of bilateral gastrosoleus complex. PT-OP-K Range of Motion Start: 11/13/19 17:19 Freq: Status: Active Protocol: Document 02/28/20 09:50 DCW (Rec: 02/28/20 10:01 DCW [id number]) Ankle and Foot Goniometric Range of Motion Ankle and Foot Right Active Testing Position Sitting Dorsiflexion with Knee Flexed 3 Plantarflexion 62 Inversion 30 Eversion 11 Left Active Testing Position Sitting Dorsiflexion with Knee Flexed 10 Plantarflexion 56 Inversion 36 Eversion 20 PT-OP-M Strength Start: 11/13/19 17:19 Freq: Status: Active Protocol: Document 02/28/20 09:50 DCW (Rec: 02/28/20 10:01 DCW [id number]) Ankle/Foot Strength Ankle and Foot Manual Muscle Testing Right Dorsiflexion (L4) 4- Good- Plantarflexion (S1) 4- Good- Inversion 4 Good Eversion (S1) 4- Good- Left Dorsiflexion (L4) 4+ Good+ Plantarflexion (S1) 4 Good Inversion 4+ Good+ Eversion (S1) 4+ Good+ PT-OP-Q Treatments Start: 11/13/19 17:19 Freq: Status: Active Protocol: Document 03/10/20 18:05 MA (Rec: 03/10/20 18:17 MA [email or web address]) Therapeutic Exercises Supine Exercises PF, DF, IV, EV Supine Exercise Name PF, DF, IV, EV Resistance moderate Equipment Used manual resistance Reps/Minutes 2x10 all directions Comments pt needing VC to move through full DF ROM Standing Exercises 2 Standing Exercise Name heel raises Side bilateral Reps/Minutes 2x10 wt shift then toe raises Standing Exercise Name toes raises Side bilateral Reps/Minutes 2x10 1 Standing Exercise Name Gastroc stretch Side bilateral Equipment Used SAUL Manual Therapy Treatment Soft Tissue Mobilization 4 Body Location B Posterior Tib Mobilization Type Strumming,Sustained Pressure 2 Body Location R Plantar surface Mobilization Type Cross-Friction,Strumming 1 Body Location B Achilles insertion Mobilization Type Cross-Friction,Strumming PT-OP-R Modalities Start: 11/13/19 17:19 Freq: Status: Active Protocol: Document 03/10/20 18:05 MA (Rec: 03/10/20 18:17 MA [email or web address]) Ultrasound Therapy Treatment Left Lower Posterior Leg Treatment Duration (minutes) 8 Patient Position Prone Coupling Medium Ultrasound Gel Frequency Setting (mHz) 1 Mode Setting Continuous Intensity Setting (w/cm2) 1 PT-OP-T Assessment and Plan Start: 11/13/19 17:19 Freq: Status: Active Protocol: Document 03/10/20 18:05 MA (Rec: 03/10/20 18:17 MA [email or web address]) Physical Therapy Assessment Goals Four Impairment Pt unable to hike longer than six minutes without increased pain Gluing Machine Offbearer Goal (LTG) Pt to report hiking 20 minutes without an increase in symptoms LTG Duration 04/29/20 Three Impairment Moderate hypertonia along bilateral gastrosoleus complex [facility] Goal (LTG) Decrease tone to mild degree along gastrosoleus to allow for proper dorsiflexion during swing phase of gait. LTG Duration 04/29/20 Two Impairment Pt presents with limited R ankle ROM, 0? DF and 6? Eversion [facility] Goal (LTG) Pt to demonstrate 10? R dorsiflexion and 12? R eversion in order to normalize gait pattern. LTG Duration 04/29/20 One Impairment Pt does not have an appropriate home exercise program Short Term Goal (STG) Pt to be independent and compliant with an appropriate HEP. STG Duration 03/30/20 - Improving compliance Assessment Summary Assessment Pt was tender to palpation on L achilles and R plantar fascia. Pain was decreased after manual therapy performed to regions Physical Therapy Plan Frequency and Duration Frequency of Treatment 2x/Week Duration of Treatment 10 weeks Plan of Care Start Date 02/28/20 Plan of Care End Date 05/08/20 Next Visit Focus/Plan Next Note Type Treatment Note Next Visit Plan Address ankle ROM, intrinsic foot strengthening, STM to calf, flexibility hamstrings, calf, hip flexor
--- NOTE | 2020-03-14 13:48 | PT.OTN ---
Current Diagnoses Stiffness of right ankle, not elsewhere classified (03/14/20) Plantar fascial fibromatosis (03/14/20) Metatarsalgia, right foot (03/14/20) Pain in right foot (03/14/20) Physical Therapy Treatment Note PT-OP-A Visit Information Start: 11/13/19 17:19 Freq: Status: Active Protocol: Document 03/14/20 13:04 SP (Rec: 03/14/20 16:26 SP [id number]) Out-Patient Physical Therapy Visit Information Visit Information Visit Type Treatment Note Visit Start Time 13:04 Visit Stop Time 13:48 Total Visit Minutes 44 Visit Number 13 Number of COMPLIANCE CONSULTANT Visits 2 PT-OP-B Current Condition Start: 11/13/19 17:19 Freq: Status: Active Protocol: Document 11/13/19 11:15 DCW (Rec: 11/13/19 17:54 DCW [id number]) Current Condition History of Current Condition Onset Date 7 year history Current Complaints R heel pain, ankle stiffness, difficulty with extended standing History of Current Condition Pt is a 38 year old female with a long standing history of plantar fasciitis. Pt notes that she was first diagnosed in 2012, received a cortisone shot, which made if feel magnificent for ~1 year, but ever since has slowly worsened . Pt reports she is in the most pain after working at her job at [employer], and when first getting up on her feet in the morning. 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 Pt wears a walking boot occasionally at work, which seems ot offer some relief. Pt enjoys hiking [email or web address] with her young child, but tried to go out one month ago, and had to stop after only six minutes due to severe pain. PT-OP-C Subjective Start: 11/13/19 17:19 Freq: Status: Active Protocol: Document 03/14/20 13:04 SP (Rec: 03/14/20 16:26 SP [id number]) OP-PT Subjective Patient Comments Patient Comments Pt reported PT-OP-F Manual Assessment Start: 11/13/19 17:19 Freq: Status: Active Protocol: Document 02/28/20 09:50 DCW (Rec: 02/28/20 10:01 DCW [id number]) Manual Assessments Soft Tissue Assessment Soft Tissue Mobility Assessment Tenderness to palpation 3/4: Wincing and withdraw along R plantar fascia, particularly mid-tarsus, as well as bilateral posterior tib insertion point Tenderness to palpation 3/4: Wincing and withdraw and moderate hypertonia along muscle belly of bilateral gastrosoleus complex. PT-OP-K Range of Motion Start: 11/13/19 17:19 Freq: Status: Active Protocol: Document 02/28/20 09:50 DCW (Rec: 02/28/20 10:01 DCW [id number]) Ankle and Foot Goniometric Range of Motion Ankle and Foot Right Active Testing Position Sitting Dorsiflexion with Knee Flexed 3 Plantarflexion 62 Inversion 30 Eversion 11 Left Active Testing Position Sitting Dorsiflexion with Knee Flexed 10 Plantarflexion 56 Inversion 36 Eversion 20 PT-OP-M Strength Start: 11/13/19 17:19 Freq: Status: Active Protocol: Document 02/28/20 09:50 DCW (Rec: 02/28/20 10:01 DCW [id number]) Ankle/Foot Strength Ankle and Foot Manual Muscle Testing Right Dorsiflexion (L4) 4- Good- Plantarflexion (S1) 4- Good- Inversion 4 Good Eversion (S1) 4- Good- Left Dorsiflexion (L4) 4+ Good+ Plantarflexion (S1) 4 Good Inversion 4+ Good+ Eversion (S1) 4+ Good+ PT-OP-Q Treatments Start: 11/13/19 17:19 Freq: Status: Active Protocol: Document 03/14/20 13:04 SP (Rec: 03/14/20 16:26 SP [id number]) Therapeutic Exercises Sitting Exercises BAPS board Sitting Exercise Name PF, DF, EV, IV, CW, CCW Resistance #4 Reps/Minutes x10 each Comments soreness but tolerable during EV motions arch lifts Sitting Exercise Name MTP flex lift w/PIP/IP neutral Side bilateral Reps/Minutes x10 seated and stand. 1 Sitting Exercise Name Ankle inversion/eversion Side bilateral Resistance Lv 3 Equipment Used T-band Reps/Minutes x12 each [place]ock plantar fascia stretch, PF and toe flexion with TB Resistance Tb #2 Reps/Minutes 2 min Comments Teal band, pt to perform B Manual Therapy Treatment Soft Tissue Mobilization 4 Body Location B Posterior Tib Mobilization Type Strumming,Sustained Pressure 2 Body Location R Plantar surface Mobilization Type Cross-Friction,Strumming 1 Body Location B Achilles insertion Mobilization Type Cross-Friction,Strumming Joint Mobilizations 1 Joint R Tibiotalar, MTP G II Direction posterior Grade III Body Position Sitting Taping 1 Body Location L heel taping (distal achilles ) Treatment Focus decrease pain during heel lift toe off Type of Tape Kim Skin Inspection intact, normal Comments no pain walking, encouraged to walk heel raise and toe off, normal patterning. take tape off if irritating skin, reddness or falling off but able to wear in shower. PT-OP-R Modalities Start: 11/13/19 17:19 Freq: Status: Active Protocol: Document 03/10/20 18:05 MA (Rec: 03/10/20 18:17 MA [email or web address]) Ultrasound Therapy Treatment Left Lower Posterior Leg Treatment Duration (minutes) 8 Patient Position Prone Coupling Medium Ultrasound Gel Frequency Setting (mHz) 1 Mode Setting Continuous Intensity Setting (w/cm2) 1 PT-OP-T Assessment and Plan Start: 11/13/19 17:19 Freq: Status: Active Protocol: Document 03/14/20 13:04 SP (Rec: 03/14/20 16:26 SP [id number]) Physical Therapy Assessment Goals Four Impairment Pt unable to hike longer than six minutes without increased pain Longterm Goal (LTG) Pt to report hiking 20 minutes without an increase in symptoms LTG Duration 04/29/20 Three Impairment Moderate hypertonia along bilateral gastrosoleus complex Orange Grower Goal (LTG) Decrease tone to mild degree along gastrosoleus to allow for proper dorsiflexion during swing phase of gait. LTG Duration 04/29/20 Two Impairment Pt presents with limited R ankle ROM, 0? DF and 6? Eversion Orange Grower Goal (LTG) Pt to demonstrate 10? R dorsiflexion and 12? R eversion in order to normalize gait pattern. LTG Duration 04/29/20 One Impairment Pt does not have an appropriate home exercise program Short Term Goal (STG) Pt to be independent and compliant with an appropriate HEP. STG Duration 03/30/20 - Improving compliance Assessment Summary Assessment Pt tolerated tx well, REviewed HEP, initiated SLS star taps with cuing for COG over foot triangle SHARONDA with improved balance recorrections. Tolerated BAPS today level 4 challenge EV but tolerable to improve that range strengthening to allow walking at work better endurance. Incorporated exercises at work to allow last shift. Notices gettign better. Physical Therapy Plan Frequency and Duration Frequency of Treatment 2x/Week Duration of Treatment 10 weeks Plan of Care Start Date 02/28/20 Plan of Care End Date 05/08/20 Therapeutic Interventions Therapeutic Interventions Aquatic Therapy,Balance Training,Gait Training,Home Exercise Program,Joint Mobilizations,Manual Therapy, Patient/Caregiver Education, Self-Care/Home Management,Soft Tissue Mobilization,Taping, Therapeutic Activities, Therapeutic Exercises Modalities Cold Pack/Ice Massage,Electric Stimulation,Hot Packs, Iontophoresis,Ultrasound Next Visit Focus/Plan Next Note Type Treatment Note Next Visit Plan Assess response to last tx: L heel taping achilles att calcaneus hurting today, HEp review and added SLS star tap cones for stability challenge. Address ankle ROM, intrinsic foot strengthening, STM to calf, flexibility hamstrings, calf, hip flexor
--- NOTE | 2020-03-19 12:13 | PT.OTN ---
Current Diagnoses Stiffness of right ankle, not elsewhere classified (03/19/20) Plantar fascial fibromatosis (03/19/20) Metatarsalgia, right foot (03/19/20) Pain in right foot (03/19/20) Physical Therapy Treatment Note PT-OP-A Visit Information Start: 11/13/19 17:19 Freq: Status: Active Protocol: Document 03/19/20 12:13 DLM (Rec: 03/20/20 19:46 DLM [id number]) Out-Patient Physical Therapy Visit Information Visit Information Visit Type Treatment Note Visit Start Time 12:13 Visit Stop Time 12:58 Total Visit Minutes 45 Visit Number 14 Number of GREY PERCHER Visits 0 Evaluation Information Evaluation Date 11/13/19 PT-OP-B Current Condition Start: 11/13/19 17:19 Freq: Status: Active Protocol: Document 11/13/19 11:15 DCW (Rec: 11/13/19 17:54 DCW [id number]) Current Condition History of Current Condition Onset Date 7 year history Current Complaints R heel pain, ankle stiffness, difficulty with extended standing History of Current Condition Pt is a 38 year old female with a long standing history of plantar fasciitis. Pt notes that she was first diagnosed in 2012, received a cortisone shot, which made if feel magnificent for ~1 year, but ever since has slowly worsened . Pt reports she is in the most pain after working at her job at [employer], and when first getting up on her feet in the morning. 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 Pt wears a walking boot occasionally at work, which seems ot offer some relief. Pt enjoys hiking [place] with her young child, but tried to go out one month ago, and had to stop after only six minutes due to severe pain. PT-OP-C Subjective Start: 11/13/19 17:19 Freq: Status: Active Protocol: Document 03/19/20 12:13 DLM (Rec: 03/20/20 19:56 DLM [id number]) OP-PT Subjective Patient Comments Patient Comments The taping helped. After she works she can't walk flat on her feet the next morning; has to walk on balls of feet. OP-PT Pain Assessment Location Heel Pain Location Details Left Intensity 7 Scale Used Numeric (0 - 10) Description Aching Frequency Constant Right Volar Foot Intensity 5 Scale Used Numeric (0 - 10) Description Aching PT-OP-F Manual Assessment Start: 11/13/19 17:19 Freq: Status: Active Protocol: Document 02/28/20 09:50 DCW (Rec: 02/28/20 10:01 DCW [id number]) Manual Assessments Soft Tissue Assessment Soft Tissue Mobility Assessment Tenderness to palpation 3/4: Wincing and withdraw along R plantar fascia, particularly mid-tarsus, as well as bilateral posterior tib insertion point Tenderness to palpation 3/4: Wincing and withdraw and moderate hypertonia along muscle belly of bilateral gastrosoleus complex. PT-OP-K Range of Motion Start: 11/13/19 17:19 Freq: Status: Active Protocol: Document 02/28/20 09:50 DCW (Rec: 02/28/20 10:01 DCW [id number]) Ankle and Foot Goniometric Range of Motion Ankle and Foot Right Active Testing Position Sitting Dorsiflexion with Knee Flexed 3 Plantarflexion 62 Inversion 30 Eversion 11 Left Active Testing Position Sitting Dorsiflexion with Knee Flexed 10 Plantarflexion 56 Inversion 36 Eversion 20 PT-OP-M Strength Start: 11/13/19 17:19 Freq: Status: Active Protocol: Document 02/28/20 09:50 DCW (Rec: 02/28/20 10:01 DCW [id number]) Ankle/Foot Strength Ankle and Foot Manual Muscle Testing Right Dorsiflexion (L4) 4- Good- Plantarflexion (S1) 4- Good- Inversion 4 Good Eversion (S1) 4- Good- Left Dorsiflexion (L4) 4+ Good+ Plantarflexion (S1) 4 Good Inversion 4+ Good+ Eversion (S1) 4+ Good+ PT-OP-Q Treatments Start: 11/13/19 17:19 Freq: Status: Active Protocol: Document 03/19/20 12:13 DLM (Rec: 03/20/20 19:56 DLM [id number]) Therapeutic Exercises Sitting Exercises Hamstring Stretch Sitting Exercise Name HS with calf stretch Side bilateral Resistance passive with strap Reps/Minutes 3 reps each Comments single limb long sitting BAPS board Sitting Exercise Name PF, DF, EV, IV, CW, CCW Side bilateral Resistance L4 Reps/Minutes x10 each Comments soreness but tolerable during EV motions arch lifts Sitting Exercise Name MTP flex lift w/PIP/IP neutral Side bilateral Reps/Minutes x10 seated and stand. 1 Sitting Exercise Name Ankle inversion/eversion Side bilateral Resistance Lv 3 Equipment Used T-band Reps/Minutes x12 each Standing Exercises 1 Standing Exercise Name Gastroc stretch Side bilateral Equipment Used SAUL Reps/Minutes 30 sec x 3 reps Manual Therapy Treatment Taping 1 Body Location L heel taping (distal achilles ) Treatment Focus decrease pain during heel lift toe off Type of Tape Julio Skin Inspection intact, normal Comments no pain walking, encouraged to walk heel raise and toe off, normal patterning. take tape off if irritating skin, reddness or falling off but able to wear in shower. PT-OP-R Modalities Start: 11/13/19 17:19 Freq: Status: Active Protocol: Document 03/19/20 12:13 DLM (Rec: 03/20/20 19:57 [facility] [id number]) Ultrasound Therapy Treatment Left Lower Posterior Leg Treatment Duration (minutes) 8 Patient Position Prone Coupling Medium Ultrasound Gel Frequency Setting (mHz) 1 Mode Setting Continuous Intensity Setting (w/cm2) 1 PT-OP-T Assessment and Plan Start: 11/13/19 17:19 Freq: Status: Active Protocol: Document 03/19/20 12:13 DLM (Rec: 03/20/20 19:56 [facility] [id number]) Physical Therapy Assessment Goals Four Impairment Pt unable to hike longer than six minutes without increased pain Division Engineer Goal (LTG) Pt to report hiking 20 minutes without an increase in symptoms LTG Duration 04/29/20 Three Impairment Moderate hypertonia along bilateral gastrosoleus complex Division Engineer Goal (LTG) Decrease tone to mild degree along gastrosoleus to allow for proper dorsiflexion during swing phase of gait. LTG Duration 04/29/20 Two Impairment Pt presents with limited R ankle ROM, 0? DF and 6? Eversion Half-Way Goal (LTG) Pt to demonstrate 10? R dorsiflexion and 12? R eversion in order to normalize gait pattern. LTG Duration 04/29/20 One Impairment Pt does not have an appropriate home exercise program Short Term Goal (STG) Pt to be independent and compliant with an appropriate HEP. STG Duration 03/30/20 - Improving compliance Progress Towards Goals Progress Towards Goals Progressing Toward Goals Assessment Summary Assessment She reports the taping helps. She tolerated treatment well. She has difficulty completing BAPS exercises. She continues to report elevated levels of pain. Physical Therapy Plan Frequency and Duration Frequency of Treatment 2x/Week Duration of Treatment 10 weeks Plan of Care Start Date 02/28/20 Plan of Care End Date 05/08/20 Therapeutic Interventions Therapeutic Interventions Aquatic Therapy,Balance Training,Gait Training,Home Exercise Program,Joint Mobilizations,Manual Therapy, Patient/Caregiver Education, Self-Care/Home Management,Soft Tissue Mobilization,Taping, Therapeutic Activities, Therapeutic Exercises Modalities Cold Pack/Ice Massage,Electric Stimulation,Hot Packs, Iontophoresis,Ultrasound Next Visit Focus/Plan Next Note Type Treatment Note Next Visit Plan continue to focus on stretching and strengthening
--- NOTE | 2020-03-26 14:53 | PT-OP ANOTE ---
Left voicemail for second missed appt this week and let her know cancellation policy
--- NOTE | 2020-03-28 12:50 | PT.OTN ---
Current Diagnoses Stiffness of right ankle, not elsewhere classified (03/28/20) Plantar fascial fibromatosis (03/28/20) Metatarsalgia, right foot (03/28/20) Pain in right foot (03/28/20) Physical Therapy Treatment Note PT-OP-A Visit Information Start: 11/13/19 17:19 Freq: Status: Active Protocol: Document 03/28/20 12:05 DCW (Rec: 03/28/20 12:50 DCW [id number]) Out-Patient Physical Therapy Visit Information Visit Information Visit Type Treatment Note Visit Start Time 12:05 Visit Stop Time 12:45 Total Visit Minutes 40 Visit Number 15 Number of SINTER MACHINE OPERATOR Visits 0 Evaluation Information Evaluation Date 11/13/19 PT-OP-B Current Condition Start: 11/13/19 17:19 Freq: Status: Active Protocol: Document 11/13/19 11:15 DCW (Rec: 11/13/19 17:54 DCW [id number]) Current Condition History of Current Condition Onset Date 7 year history Current Complaints R heel pain, ankle stiffness, difficulty with extended standing History of Current Condition Pt is a 38 year old female with a long standing history of plantar fasciitis. Pt notes that she was first diagnosed in 2012, received a cortisone shot, which made if feel magnificent for ~1 year, but ever since has slowly worsened . Pt reports she is in the most pain after working at her job at [employer], and when first getting up on her feet in the morning. 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 Pt wears a walking boot occasionally at work, which seems ot offer some relief. Pt enjoys hiking [place] with her young child, but tried to go out one month ago, and had to stop after only six minutes due to severe pain. PT-OP-C Subjective Start: 11/13/19 17:19 Freq: Status: Active Protocol: Document 03/28/20 12:05 DCW (Rec: 03/28/20 12:50 DCW [id number]) OP-PT Subjective Patient Comments Patient Comments I probably over did it uesterday, I went for a small jog, about six blocks. PT-OP-F Manual Assessment Start: 11/13/19 17:19 Freq: Status: Active Protocol: Document 02/28/20 09:50 DCW (Rec: 02/28/20 10:01 DCW [id number]) Manual Assessments Soft Tissue Assessment Soft Tissue Mobility Assessment Tenderness to palpation 3/4: Wincing and withdraw along R plantar fascia, particularly mid-tarsus, as well as bilateral posterior tib insertion point Tenderness to palpation 3/4: Wincing and withdraw and moderate hypertonia along muscle belly of bilateral gastrosoleus complex. PT-OP-K Range of Motion Start: 11/13/19 17:19 Freq: Status: Active Protocol: Document 02/28/20 09:50 DCW (Rec: 02/28/20 10:01 DCW [id number]) Ankle and Foot Goniometric Range of Motion Ankle and Foot Right Active Testing Position Sitting Dorsiflexion with Knee Flexed 3 Plantarflexion 62 Inversion 30 Eversion 11 Left Active Testing Position Sitting Dorsiflexion with Knee Flexed 10 Plantarflexion 56 Inversion 36 Eversion 20 PT-OP-M Strength Start: 11/13/19 17:19 Freq: Status: Active Protocol: Document 02/28/20 09:50 DCW (Rec: 02/28/20 10:01 DCW [id number]) Ankle/Foot Strength Ankle and Foot Manual Muscle Testing Right Dorsiflexion (L4) 4- Good- Plantarflexion (S1) 4- Good- Inversion 4 Good Eversion (S1) 4- Good- Left Dorsiflexion (L4) 4+ Good+ Plantarflexion (S1) 4 Good Inversion 4+ Good+ Eversion (S1) 4+ Good+ PT-OP-Q Treatments Start: 11/13/19 17:19 Freq: Status: Active Protocol: Document 03/28/20 12:05 DCW (Rec: 03/28/20 12:50 DCW [id number]) Therapeutic Exercises Sitting Exercises Hamstring Stretch Sitting Exercise Name HS with calf stretch Side bilateral Resistance passive with strap Reps/Minutes 3 reps each Comments single limb long sitting BAPS board Sitting Exercise Name PF, DF, EV, IV, CW, CCW Side bilateral Resistance L4 Reps/Minutes x10 each 1 Sitting Exercise Name Ankle inversion/eversion Side bilateral Resistance Lv 3 Equipment Used T-band Reps/Minutes x12 each Manual Therapy Treatment Soft Tissue Mobilization 4 Body Location B Posterior Tib Mobilization Type Strumming,Sustained Pressure 2 Body Location R Plantar surface Mobilization Type Cross-Friction,Strumming 1 Body Location B Achilles insertion Mobilization Type Cross-Friction,Strumming Joint Mobilizations 1 Joint R Tibiotalar, MTP G II Direction posterior Grade III Body Position Sitting Taping 1 Body Location L heel taping (distal achilles ) Treatment Focus decrease pain during heel lift toe off Type of Tape Kim Skin Inspection intact, normal PT-OP-R Modalities Start: 11/13/19 17:19 Freq: Status: Active Protocol: Document 03/19/20 12:13 DLM (Rec: 03/20/20 19:57 DLM [id number]) Ultrasound Therapy Treatment Left Lower Posterior Leg Treatment Duration (minutes) 8 Patient Position Prone Coupling Medium Ultrasound Gel Frequency Setting (mHz) 1 Mode Setting Continuous Intensity Setting (w/cm2) 1 PT-OP-T Assessment and Plan Start: 11/13/19 17:19 Freq: Status: Active Protocol: Document 03/28/20 12:05 DCW (Rec: 03/28/20 12:50 DCW [id number]) Physical Therapy Assessment Goals Four Impairment Pt unable to hike longer than six minutes without increased pain Skilled Nursing Goal (LTG) Pt to report hiking 20 minutes without an increase in symptoms LTG Duration 04/29/20 Three Impairment Moderate hypertonia along bilateral gastrosoleus complex Skilled Nursing Goal (LTG) Decrease tone to mild degree along gastrosoleus to allow for proper dorsiflexion during swing phase of gait. LTG Duration 04/29/20 Two Impairment Pt presents with limited R ankle ROM, 0? DF and 6? Eversion Manager Helpdesk Goal (LTG) Pt to demonstrate 10? R dorsiflexion and 12? R eversion in order to normalize gait pattern. LTG Duration 04/29/20 One Impairment Pt does not have an appropriate home exercise program Short Term Goal (STG) Pt to be independent and compliant with an appropriate HEP. STG Duration 03/30/20 - Improving compliance Assessment Summary Assessment Pt showing improvement in tone along gastroc and into achilles tendon. Substantially less pain with movement and palpation. Reporting increased ability to stand at work with less pain. Physical Therapy Plan Frequency and Duration Frequency of Treatment 2x/Week Duration of Treatment 10 weeks Plan of Care Start Date 02/28/20 Plan of Care End Date 05/08/20 Therapeutic Interventions Therapeutic Interventions Aquatic Therapy,Balance Training,Gait Training,Home Exercise Program,Joint Mobilizations,Manual Therapy, Patient/Caregiver Education, Self-Care/Home Management,Soft Tissue Mobilization,Taping, Therapeutic Activities, Therapeutic Exercises Modalities Cold Pack/Ice Massage,Electric Stimulation,Hot Packs, Iontophoresis,Ultrasound Next Visit Focus/Plan Next Note Type Treatment Note Next Visit Plan continue to focus on stretching and strengthening
--- NOTE | 2020-04-09 09:18 | PT-OP ANOTE ---
Pt no showed appointment today. LVM indicating one remaining appointment on 04/18 at noon. Encouraged patient to cancel ahead of time or reschedule if appointment time will not work for her. Indicated that one more missed appointment would result in discharge.
--- NOTE | 2020-04-18 12:56 | PT.OTN ---
Current Diagnoses Stiffness of right ankle, not elsewhere classified (04/18/20) Plantar fascial fibromatosis (04/18/20) Metatarsalgia, right foot (04/18/20) Pain in right foot (04/18/20) Physical Therapy Treatment Note PT-OP-A Visit Information Start: 11/13/19 17:19 Freq: Status: Active Protocol: Document 04/18/20 12:14 DCW (Rec: 04/18/20 12:55 DCW [id number]) Out-Patient Physical Therapy Visit Information Visit Information Visit Type Discharge Summary Visit Start Time 12:14 Visit Stop Time 12:45 Total Visit Minutes 31 Visit Number 16 Number of THERAPEUTIC CONSULTANT Visits 0 Evaluation Information Evaluation Date 11/13/19 PT-OP-B Current Condition Start: 11/13/19 17:19 Freq: Status: Active Protocol: Document 11/13/19 11:15 DCW (Rec: 11/13/19 17:54 DCW [id number]) Current Condition History of Current Condition Onset Date 7 year history Current Complaints R heel pain, ankle stiffness, difficulty with extended standing History of Current Condition Pt is a 38 year old female with a long standing history of plantar fasciitis. Pt notes that she was first diagnosed in 2012, received a cortisone shot, which made if feel magnificent for ~1 year, but ever since has slowly worsened . Pt reports she is in the most pain after working at her job at [employer], and when first getting up on her feet in the morning. 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 Pt wears a walking boot occasionally at work, which seems ot offer some relief. Pt enjoys hiking [place] with her young child, but tried to go out one month ago, and had to stop after only six minutes due to severe pain. PT-OP-C Subjective Start: 11/13/19 17:19 Freq: Status: Active Protocol: Document 04/18/20 12:14 DCW (Rec: 04/18/20 12:55 DCW [id number]) OP-PT Subjective Patient Comments Patient Comments I've been doing much better. 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 PT-OP-F Manual Assessment Start: 11/13/19 17:19 Freq: Status: Active Protocol: Document 04/18/20 12:14 DCW (Rec: 04/18/20 12:38 DCW [id number]) Manual Assessments Soft Tissue Assessment Soft Tissue Mobility Assessment Tenderness to palpation 1/4: Complaint of pain along R plantar fascia. Tenderness to palpation 2/4: Pain with Wincing, mild hypertonia along muscle belly of bilateral gastrosoleus complex. PT-OP-K Range of Motion Start: 11/13/19 17:19 Freq: Status: Active Protocol: Document 04/18/20 12:14 DCW (Rec: 04/18/20 12:38 DCW [id number]) Ankle and Foot Goniometric Range of Motion Ankle and Foot Right Active Testing Position Sitting Dorsiflexion with Knee Flexed 8 Plantarflexion 60 Inversion 30 Eversion 12 Left Active Testing Position Sitting Dorsiflexion with Knee Flexed 12 Plantarflexion 60 Inversion 42 Eversion 20 PT-OP-M Strength Start: 11/13/19 17:19 Freq: Status: Active Protocol: Document 04/18/20 12:14 DCW (Rec: 04/18/20 12:38 DCW [id number]) Ankle/Foot Strength Ankle and Foot Manual Muscle Testing Right Dorsiflexion (L4) 4+ Good+ Plantarflexion (S1) 4+ Good+ Inversion 4+ Good+ Eversion (S1) 4- Good- Left Dorsiflexion (L4) 4+ Good+ Plantarflexion (S1) 4 Good Inversion 4+ Good+ Eversion (S1) 4+ Good+ PT-OP-Q Treatments Start: 11/13/19 17:19 Freq: Status: Active Protocol: Document 04/18/20 12:14 DCW (Rec: 04/18/20 12:55 DCW [id number]) Manual Therapy Treatment Soft Tissue Mobilization 4 Body Location B Posterior Tib Mobilization Type Strumming,Sustained Pressure 2 Body Location R Plantar surface Mobilization Type Cross-Friction,Strumming 1 Body Location B Achilles insertion Mobilization Type Cross-Friction,Strumming Joint Mobilizations 1 Joint R Tibiotalar, MTP G II Direction posterior Grade III Body Position Sitting PT-OP-R Modalities Start: 11/13/19 17:19 Freq: Status: Active Protocol: Document 03/19/20 12:13 DLM (Rec: 03/20/20 19:57 DLM [id number]) Ultrasound Therapy Treatment Left Lower Posterior Leg Treatment Duration (minutes) 8 Patient Position Prone Coupling Medium Ultrasound Gel Frequency Setting (mHz) 1 Mode Setting Continuous Intensity Setting (w/cm2) 1 PT-OP-T Assessment and Plan Start: 11/13/19 17:19 Freq: Status: Active Protocol: Document 04/18/20 12:14 DCW (Rec: 04/18/20 12:55 DCW [id number]) Physical Therapy Assessment Goals Four Impairment Pt unable to hike longer than six minutes without increased pain Utility Clerk Goal (LTG) Pt to report hiking 20 minutes without an increase in symptoms LTG Duration 04/29/20 Three Impairment Moderate hypertonia along bilateral gastrosoleus complex Fdc Goal (LTG) Decrease tone to mild degree along gastrosoleus to allow for proper dorsiflexion during swing phase of gait. LTG Duration Met Two Impairment Pt presents with limited R ankle ROM, 0? DF and 6? Eversion Utility Clerk Goal (LTG) Pt to demonstrate 10? R dorsiflexion and 12? R eversion in order to normalize gait pattern. LTG Duration 04/29/20 - Improving DF, Met EV One Impairment Pt does not have an appropriate home exercise program Short Term Goal (STG) Pt to be independent and compliant with an appropriate HEP. STG Duration Met Assessment Summary Assessment Pt largely doing very well, unfortunately able to rest foot more since she is out of work. Pt has reached somewhat of a progress plateau, and reached the end of her insurance authorization. Pt is agreeable to discharge at this time, with the understanding she can return with a new referral if needed. Physical Therapy Plan Frequency and Duration Frequency of Treatment 2x/Week Duration of Treatment 10 weeks Plan of Care Start Date 02/28/20 Plan of Care End Date 05/08/20 Therapeutic Interventions Therapeutic Interventions Aquatic Therapy,Balance Training,Gait Training,Home Exercise Program,Joint Mobilizations,Manual Therapy, Patient/Caregiver Education, Self-Care/Home Management,Soft Tissue Mobilization,Taping, Therapeutic Activities, Therapeutic Exercises Modalities Cold Pack/Ice Massage,Electric Stimulation,Hot Packs, Iontophoresis,Ultrasound Next Visit Focus/Plan Next Note Type Treatment Note Next Visit Plan continue to focus on stretching and strengthening
== END 2020-04-23 08:10 ==
LOC: PHYS 12:00
PROVIDERS: PCP Internal Medicine; Referring Provider Podiatrist; Visit Provider Podiatrist
DX: M72.2 Plantar fascial fibromatosis (principal); M77.41 Metatarsalgia, right foot; M79.671 Pain in right foot; M25.671 Stiffness of right ankle, not elsewhere classified
CPT/HCPCS: 97035; 97110; 97112; 97140; 97161

== ENCOUNTER 2020-05-01 07:32 | Emergency (ER) | payer OTHER, MEDICAID, SELFPAY ==
[2020-05-01 07:41] VITALS: BP 142/88; PULSE 67; RESP 18; TEMP 36.5; O2SAT 100
--- NOTE | 2020-05-01 07:53 | ED.BACK ---
HPI - Back Pain/Injury General Chief Complaint: Back Pain/Injury Stated Complaint: left side flank pain/nausea today Time Seen by Provider: 05/01/20 07:53 Source: patient Mode of arrival: Ambulatory Limitations: no limitations History of Present Illness HPI Narrative: The patient presents with left flank pain rating to the left abdomen, onset this morning after getting out of bed. She was well when she went to bed last night. The pain started suddenly, and is severe, stabbing in nature. She has associated nausea vomiting. She has no diarrhea. She denies dysuria or hematuria. She has PCOS, she had a menstrual cycle about 1 month ago. She denies . She has chronic GI issues. She has no URI symptoms, headache, or sore throat. She denies cough or dyspnea. She has not been ill. Related Data Previous Rx's Medication Instructions Recorded ibuprofen 600 mg PO Q6HP PRN #14 tab 03/28/17 medroxyprogesterone [Provera] 10 mg PO .Q 2 hours PRN #30 tab 10/25/19 levonorgestrel 0.15 mg-ethinyl 1 tab PO DAILY #91 each 10/29/19 estradiol 30 mcg tablets,3 mos pack(91) Allergies Allergy/AdvReac Type Severity Reaction Status Date / Time morphine Allergy Intermediate pt felt Verified 11/26/19 10:14 like she was on fire paper tape Allergy Uncoded 11/26/19 10:14 Review of Systems Constitutional Constitutional: Denies chills, Denies fatigue, Denies fever(s) and Denies malaise Eyes Eyes: Denies change in vision, Denies irritation and Reports loss of vision ENT Ears, Nose, Mouth, and Throat: Denies change in voice and Denies sore throat Cardiovascular Cardiovascular: Denies chest pain and Denies dyspnea Respiratory Respiratory: Denies cough and Denies dyspnea Gastrointestinal Gastrointestinal: Denies abdominal pain, Denies nausea and Denies vomiting Comments: No bowel incontinence. Genitourinary Genitourinary: Denies urinary incontinence Genitourinary: Denies urinary incontinence Comments: No hematuria Musculoskeletal Musculoskeletal: Reports as per HPI Integumentary/Breasts Comments: No skin lesions Neurologic Neurologic: Reports loss of vision Comments: No focal motor or sensory deficits. Endocrine Endocrine: Denies fatigue Patient History Medical History (Updated 05/01/20 @ 10:02 by Chandra Philip MD) History of Polycystic ovaries (10/06/15) Social History Smoking Status: Former smoker Smoking Status: Former smoker alcohol intake frequency: holidays/special occasions only Substance Use Type: marijuana Exam Initial Vital Signs Initial Vital Signs: Vital Signs Temperature 97.7 F 05/01/20 07:41 Pulse Rate 67 05/01/20 07:41 Respiratory Rate 18 05/01/20 07:41 Blood Pressure 142/88 H 05/01/20 07:41 Pulse Oximetry 100 05/01/20 07:41 Const General: cooperative and well developed Nutritional Appearance: well nourished [facility] Head: normocephalic and atraumatic Resp Auscultation: clear to auscultation bilaterally Cardio Rate: regular rate Rhythm: regular rhythm Heart Sounds: no click, no gallops, no murmurs and no rubs Pulses: normal peripheral pulses GI Other: Left flank tenderness without distention, guarding or rebound. No masses. Normal bowel sounds. Back/Spine/Pelvis Other: Left flank tenderness. No CVAT. Skin General: no rashes or lesions noted Neuro General: patient alert, patient oriented x3, gait normal and no focal motor deficits Speech: speech normal Extrem General: no pedal edema and no calf tenderness Course Course Course Narrative: The patient presented with sudden onset of pain in the left flank, and hematuria. On CT there is no evidence severe to the ureterolithiasis. Her pain has resolved. Clinically, she has passed a stone. There is a faint, small calcification in the left kidney. She was discharged home on ibuprofen. Orders Ordered: ED Orders 05/01/20 07:55 Complete Blood Count AUTO DIFF Stat Comprehensive Metabolic Panel Stat Lipase Stat 05/01/20 08:44 CT kidney ureter bladder (KUB) Stat Sodium Chloride (Normal Saline 0.9%) 1,000 mls @ 250 mls/hr IV CONT OMKAR Last Admin: 05/01/20 08:06 Dose: 250 mls/hr Documented by: BELLE Discontinued Medications Ketorolac Tromethamine (Ketorolac 60 Mg/2 Ml Vial) 30 mg IV NOW ONE Stop: 05/01/20 07:54 Last Admin: 05/01/20 08:05 Dose: 30 mg Documented by: JGODFREY Ondansetron HCl (Ondansetron 4 Mg/2 Ml Inj) 4 mg IV NOW ONE Stop: 05/01/20 08:05 Last Admin: 05/01/20 08:16 Dose: Not Given Documented by: BELLE Vital Signs Vital signs: Vital Signs - 8 hr 05/01/20 07:41 05/01/20 09:32 Temperature 97.7 F Pulse Rate 67 64 Respiratory Rate 18 15 Blood Pressure 142/88 H 118/67 Pulse Oximetry 100 97 MDM - Back Pain/Injury Lab Data Result diagrams: 05/01/20 07:55 05/01/20 07:55 Labs: Lab Results 05/01/20 05/01/20 Range/Units 07:55 07:55 WBC 6.4 (4.5-11.0) X10^3/uL RBC 5.00 (4.0-5.2) X10^6/uL Hgb 14.1 (12.0-16.0) g/dL Hct 42.4 (36-46) % MCV 84.9 (80-100) fL MCH 28.2 (26-34) PG MCHC 33.2 (30-36) % RDW 14.8 (11.6-14.8) % Plt Count 243 (150-400) X10^3/uL Neut % (Auto) 25.6 L (50-75) % Lymph % (Auto) 58.4 H (25-40) % [place] % (Auto) 10.4 (3-14) % Eos % (Auto) 4.9 H (2-4) % Baso % (Auto) 0.7 (0-2) % Neut # (Auto) 1600 (0448-8006) /uL Lymph # (Auto) 3800 (7813-4561) /uL [place] # (Auto) 700 (0-900) /uL Eos # (Auto) 300 (0-450) /uL Baso # (Auto) 0 (0-100) /uL Sodium 141 (137-145) mmol/L Potassium 3.8 (3.4-5.1) mmol/L Chloride 108 H (98-107) mmol/L Carbon Dioxide 28 (22-32) mmol/L BUN 20 H (7-17) mg/dL Creatinine 0.87 (0.52-1.04) mg/dL Estimated GFR > 60.0 (>60) mL/min BUN/Creatinine Ratio 23.0 H (6-22) Glucose 123 H (70-100) mg/dL Calcium 8.9 (8.4-10.2) mg/dL Total Bilirubin 0.6 (0.2-1.3) mg/dL AST 33 (14-36) IU/L ALT 21 (<35) IU/L Alkaline Phosphatase 95 (38-126) U/L Total Protein 7.6 (6.3-8.2) g/dL Albumin 4.2 (3.5-5.0) g/dL Globulin 3.4 (1.7-4.1) g/dL Albumin/Globulin Ratio 1.2 (1.0-2.8) Lipase 149 (23-300) U/L Point of Care Testing Test Results Negative Urine Dip Bedside Urine Glucose Negative Bedside Urine Ketone - Negative Urine Specific [place] 1.030 Bedside Urine Occult Blood ++ Bedside Urine pH 6.0 Bedside Urine Protein + 30 Bedside Urine Urobilinogen +/- 1mg Bedside Urine Nitrite - Negative Bedside Urine Leukocytes - Negative Esterase Imaging Data KUB CT: Radiologist's Impression: 98 Chandra Philip MD Find Patient Imaging - Maria M Mccarthy 39 F 1980 ACTIVITY DATE EXAM STATUS AUTHOR 05/01/20 08:[address] [id number] Scan ReportSigned Patient: Maria M Mccarthy R#: [id number]: 1980Acct:[id number]/Sex: 39 / FDate of Service: 05/01/20Loc: EDAccession Number: [id number] Procedure: CT kidney ureter bladder (KUB) Ordering Provider: Chandra Philip MD PROCEDURE: CT KIDNEY URETER BLADDER (KUB) INDICATIONS: Hematuria. Left flank pain TECHNIQUE: Noncontrast 5 mm thick sections acquired from the diaphragms to the symphysis. 5 mm thick coronal and sagittal reformats were then performed. For radiation dose reduction, the following was used: automated exposure control, adjustment of mA and/or kV according to patient size. COMPARISON: None. FINDINGS: Image quality: Excellent. Lung bases: Lung bases are clear. Heart size is normal. Urinary system: Both kidneys are normal in size. 1 mm inferior left renal calculus. There are possible subtle punctate right renal calculi although within the realm of noise artifact therefore technically indeterminate. . No hydronephrosis or perinephric fat stranding. Both ureters appear non-dilated throughout their expected courses. Bladder wall thickness is normal; no calcified bladder stones. Gallbladder is surgically absent. Pancreas is normal in contours. Spleen is normal in size. No adrenal nodules. Peritoneum and bowel: Unenhanced bowel loops demonstrate normal wall thickness and caliber. No free fluid or air. Normal appendix. Nodes and vessels: No retroperitoneal or mesenteric adenopathy by size criteria. Aorta and inferior vena cava are normal in caliber. Abdominal wall: No ventral hernias. Pelvis: No free pelvic fluid. No inguinal hernias or adenopathy. Bones: No suspicious bony lesions. No vertebral body compression fractures. IMPRESSION: 1 mm left renal nephrolithiasis. Additional punctate densities seen within the right kidney are indeterminate as detailed above. No urinary obstruction identified. Elsewhere, no acute abnormality Dictated by: Johan Conn M.D. on 05/01/2020 at 9:05 Approved by: Johan Conn M.D. on 05/01/2020 at 9:32 Discharge Plan Departure Patient Disposition: Home Clinical Impression: Kidney stone on left side Instructions: DI for Kidney Stones Activity Restrictions/Additional Instructions: Ibuprofen every 6 hours as needed for pain. Be sure you are drinking plenty of water. Return the ER see your doctor if the pain returns. Prescriptions: No Action ibuprofen 600 MG tablet 600 mg PO Q6HP PRNQty: 14 RF: 6 levonorgestrel-ethinyl estrad 0.15 mg-30 mcg (91) tablets,dose pack,3 month 1 tab PO DAILY Qty: 91 RF: 3 medroxyprogesterone [Provera] 10 mg tablet 10 mg PO .Q 2 hours PRN (Reason: bleeding) Qty: 30 RF: 0 Referrals: Justyna Beltran MD [Primary Care Provider] - Stand Alone Forms: Work Release Note
[2020-05-01 07:54] VITALS: BMI 36.8
[2020-05-01 08:00] LABS: Add Manual Diff / Slide Review NO; Basophils Absolute Auto 0 /uL (0-100); Basophils Percent Auto 0.7 % (0-2); Eosinophils Absolute Auto 300 /uL (0-450); Eosinophils Percent Auto 4.9 % (2-4); Hematocrit 42.4 % (36-46); Hemoglobin 14.1 g/dL (12.0-16.0); Lymphocytes Absolute Auto 3800 /uL (1100-4500); Lymphocytes Percent Auto 58.4 % (25-40); Mean Corpuscular HGB Conc 33.2 % (30-36); Mean Corpuscular Hemoglobin 28.2 PG (26-34); Mean Corpuscular Volume 84.9 fL (80-100); Monocytes Absolute Auto 700 /uL (0-900); Monocytes Percent Auto 10.4 % (3-14); Neutrophils Absolute Auto 1600 /uL (1500-7000); Neutrophils Percent Auto 25.6 % (50-75); Platelet Count 243 X10^3/uL (150-400); Red Cell Distribution Width 14.8 % (11.6-14.8); White Blood Cell Count 6.4 X10^3/uL (4.5-11.0)
[2020-05-01] MEDS: KETOROLAC 60 MG/2 ML VIAL 30 MG IV (08:05)
[2020-05-01] MEDS: ONDANSETRON 4 MG/2 ML INJ (08:05)
[2020-05-01] MEDS: SODIUM CHLORIDE 0.9% 1,000 ML 250 ML IV (08:06)
[2020-05-01 08:11] LABS: Alanine Aminotransferase 21 IU/L (<35); Albumin 4.2 g/dL (3.5-5.0); Albumin Globulin Ratio 1.2 (1.0-2.8); Alkaline Phosphatase 95 U/L (38-126); Aspartate Aminotransferase 33 IU/L (14-36); Bilirubin Total 0.6 mg/dL (0.2-1.3); Blood Urea Nitrogen 20 mg/dL (7-17); Calcium 8.9 mg/dL (8.4-10.2); Carbon Dioxide 28 mmol/L (22-32); Chloride 108 mmol/L (98-107); Estimated Glomerular Filt Rate > 60.0 mL/min (>60); Globulin 3.4 g/dL (1.7-4.1); Glucose 123 mg/dL (70-100); Potassium 3.8 mmol/L (3.4-5.1); Sodium 141 mmol/L (137-145); Total Protein 7.6 g/dL (6.3-8.2)
[2020-05-01 08:12] LABS: HEMOLYSIS 28 (0-50); Lipase 149 U/L (23-300)
--- NOTE | 2020-05-01 08:44 | DI.CT.S_ITS ---
PROCEDURE: CT KIDNEY URETER BLADDER (KUB) INDICATIONS: Hematuria. Left flank pain TECHNIQUE: Noncontrast 5 mm thick sections acquired from the diaphragms to the symphysis. 5 mm thick coronal and sagittal reformats were then performed. For radiation dose reduction, the following was used: automated exposure control, adjustment of mA and/or kV according to patient size. COMPARISON: None. FINDINGS: Image quality: Excellent. Lung bases: Lung bases are clear. Heart size is normal. Urinary system: Both kidneys are normal in size. 1 mm inferior left renal calculus. There are possible subtle punctate right renal calculi although within the realm of noise artifact therefore technically indeterminate. . No hydronephrosis or perinephric fat stranding. Both ureters appear non-dilated throughout their expected courses. Bladder wall thickness is normal; no calcified bladder stones. Gallbladder is surgically absent. Pancreas is normal in contours. Spleen is normal in size. No adrenal nodules. Peritoneum and bowel: Unenhanced bowel loops demonstrate normal wall thickness and caliber. No free fluid or air. Normal appendix. Nodes and vessels: No retroperitoneal or mesenteric adenopathy by size criteria. Aorta and inferior vena cava are normal in caliber. Abdominal wall: No ventral hernias. Pelvis: No free pelvic fluid. No inguinal hernias or adenopathy. Bones: No suspicious bony lesions. No vertebral body compression fractures. IMPRESSION: 1 mm left renal nephrolithiasis. Additional punctate densities seen within the right kidney are indeterminate as detailed above. No urinary obstruction identified. Elsewhere, no acute abnormality Dictated by: Johan Conn M.D. on 05/01/2020 at 9:05 Approved by: Johan Conn M.D. on 05/01/2020 at 9:32
[2020-05-01 09:32] VITALS: BP 118/67; PULSE 64; RESP 15; O2SAT 97
[2020-05-01 10:11] VITALS: BP 120/77; PULSE 59; RESP 15; TEMP 36.5; O2SAT 100
== END 2020-05-01 10:12 | disposition home or self-care (01) ==
PROVIDERS: Emergency Provider Emergency Medicine; PCP Internal Medicine
DX: N20.0 Calculus of kidney (principal); R11.2 Nausea with vomiting, unspecified; R31.9 Hematuria, unspecified; E28.2 Polycystic ovarian syndrome
CPT/HCPCS: 36415; 74176; 80053; 81003; 81025; 83690; 85025; 96361; 96374; 99283; 99284; J1885; J2405

== ENCOUNTER 2020-05-20 10:54 | Emergency (ER) | payer OTHER, MEDICAID, SELFPAY ==
[2020-05-20] VITALS (8 sets, daily range): BP systolic 91–136; BP diastolic 64–82; PULSE 53–66; RESP 20; TEMP 35.8; O2SAT 98–100
[2020-05-20 11:26] LABS: Add Manual Diff / Slide Review NO; Basophils Absolute Auto 100 /uL (0-100); Eosinophils Absolute Auto 300 /uL (0-450); Eosinophils Percent Auto 4.6 % (2-4); Hematocrit 41.5 % (36-46); Hemoglobin 14.1 g/dL (12.0-16.0); Lymphocytes Absolute Auto 2600 /uL (1100-4500); Lymphocytes Percent Auto 46.2 % (25-40); Mean Corpuscular HGB Conc 34.1 % (30-36); Mean Corpuscular Hemoglobin 28.9 PG (26-34); Mean Corpuscular Volume 84.8 fL (80-100); Monocytes Absolute Auto 600 /uL (0-900); Monocytes Percent Auto 10.5 % (3-14); Neutrophils Absolute Auto 2100 /uL (1500-7000); Neutrophils Percent Auto 37.7 % (50-75); Platelet Count 257 X10^3/uL (150-400); Red Blood Cell Count 4.89 X10^6/uL (4.0-5.2); Red Cell Distribution Width 13.7 % (11.6-14.8); White Blood Cell Count 5.5 X10^3/uL (4.5-11.0)
[2020-05-20 11:28] LABS: Prothrombin Time 11.5 SECONDS (10.1-12.7)
--- NOTE | 2020-05-20 11:29 | ED.ABDPAIN ---
HPI - Abdominal Pain General Chief Complaint: Abdominal Pain Stated Complaint: think shes having kidney stones again Time Seen by Provider: 05/20/20 11:06 Source: patient Mode of arrival: Wheelchair Limitations: no limitations History of Present Illness HPI narrative: Patient is a 39-year-old female who presents with suprapubic pain ongoing for the last 2 days. She says she feels like she is having kidney stone again but she denies any flank pain. She has a seen evaluated here in May 01 diagnosed with 1 mm left-sided kidney stone she was thought to have passed it while in the emergency department. She now has been having suprapubic pain it is quite intense. She denies any abnormal vaginal discharge or smell. She has not had any fever or chills she is having urinary frequency but no dysuria. She denies any fever chills nausea or vomiting. She has taken Midol but it has not helped for pain MD complaint: abdominal pain Onset (ago): day(s) (2) Location: suprapubic Migration to: no migration Relieving factors: nothing Exacerbating factors: nothing Related Data Previous Rx's Medication Instructions Recorded ibuprofen 600 mg PO Q6HP PRN #14 tab 03/28/17 medroxyprogesterone [Provera] 10 mg PO .Q 2 hours PRN #30 tab 10/25/19 levonorgestrel 0.15 mg-ethinyl 1 tab PO DAILY #91 each 10/29/19 estradiol 30 mcg tablets,3 mos pack(91) meloxicam [Mobic] 7.5 mg PO DAILY PRN #20 tab 05/20/20 Allergies Allergy/AdvReac Type Severity Reaction Status Date / Time morphine Allergy Intermediate pt felt Verified 11/26/19 10:14 like she was on fire paper tape Allergy Uncoded 11/26/19 10:14 plastic tape Allergy Uncoded 05/20/20 13:38 Review of Systems Review of Systems Narrative: GENERAL: Denies chills, fatigue, malaise, fever, sweats, travel HEENT: Denies sinus pain, ear pain, sore throat, difficulty swallowing, neck pain RESPIRATORY: Denies dyspnea, cough, wheezing, hemoptysis, sputum. CARDIOVASCULAR: Denies chest pain, palpitations, orthopnea, edema GASTROINTESTINAL: See HPI : Denies dysuria, frequency, incontinence, hematuria, urinary retention, flank pain. MUSCULOSKELETAL: Denies weakness, joint pain, or bony pain SKIN: No rash, no erythema, no pruritus NEUROLOGIC: Denies weakness, dizziness, headache, numbness, change in speech, confusion PSYCHIATRIC: No concerning psychosocial issues. 12 point review of systems is negative except for those stated above and HPI Patient History Medical History (Updated 05/20/20 @ 13:32 by Juliana Ghosh DO) History of Polycystic ovaries (10/06/15) Social History Smoking Status: Former smoker Smoking Status: Former smoker alcohol intake frequency: holidays/special occasions only Substance Use Type: marijuana Exam Initial Vital Signs Initial Vital Signs: Vital Signs Pulse Rate 62 05/20/20 11:00 Blood Pressure 131/76 05/20/20 11:00 Pulse Oximetry 99 05/20/20 11:00 GENERAL: Alert slightly overweight female in no acute distress and in no acute distress. HEENT: Head atraumatic,EOMI, pupils reactive, face symmetric, moist mucous membranes CARDIOVASCULAR: Regular rate and rhythm without murmurs, rubs or gallops. RESPIRATORY: Breath sounds equal bilaterally, no wheezes rales or rhonchi. ABDOMEN: Soft, suprapubic pain with left lower quadrant discomfort no guarding no rebound : No CVA tenderness EXTREMITIES: Normal range of motion, no clubbing or edema. Neurovascularly intact NEUROLOGICAL: Alert and oriented x4.Normal gait and speech. SKIN: Warm, dry, no laceration, no petechiae, no rashes or lesions. Course Orders Ordered: ED Orders 05/20/20 11:05 Complete Blood Count AUTO DIFF Stat Comprehensive Metabolic Panel Stat Lipase Stat Partial Thromboplastin Time Stat Prothrombin Time INR Stat 05/20/20 11:21 EKG-12 Lead Stat 05/20/20 11:37 US pelvic complete Stat 05/20/20 11:53 Urine Microscopic Stat Discontinued Medications Sodium Chloride (Normal Saline 0.9%) 1,000 mls @ 1,000 mls/hr IV BOLUS ONE Stop: 05/20/20 12:36 Last Infusion: 05/20/20 13:10 Dose: Infused Documented by: Ketorolac Tromethamine (Ketorolac 60 Mg/2 Ml Vial) 30 mg IV NOW ONE Stop: 05/20/20 11:38 Last Admin: 05/20/20 11:43 Dose: 30 mg Documented by: Vital Signs Vital signs: Vital Signs - 8 hr 05/20/20 11:00 05/20/20 11:02 05/20/20 11:30 Temperature 96.4 F L Pulse Rate 62 64 57 L Respiratory Rate 20 Blood Pressure 131/76 131/76 Pulse Oximetry 99 98 98 05/20/20 11:31 05/20/20 12:31 05/20/20 12:32 Temperature Pulse Rate 57 L 66 63 Respiratory Rate Blood Pressure 91/64 125/82 Pulse Oximetry 98 99 98 05/20/20 13:00 05/20/20 13:30 Temperature Pulse Rate 53 L 64 Respiratory Rate Blood Pressure 136/76 128/79 Pulse Oximetry 100 99 MDM - Abdominal Pain Lab Data Attestation: I reviewed the patient's lab results. Result diagrams: 05/20/20 11:05 05/20/20 11:05 Labs: Lab Results 05/20/20 05/20/20 05/20/20 Range/Units 11:05 11:05 11:05 WBC 5.5 (4.5-11.0) X10^3/uL RBC 4.89 (4.0-5.2) X10^6/uL Hgb 14.1 (12.0-16.0) g/dL Hct 41.5 (36-46) % MCV 84.8 (80-100) fL MCH 28.9 (26-34) PG MCHC 34.1 (30-36) % RDW 13.7 (11.6-14.8) % Plt Count 257 (150-400) X10^3/uL Neut % (Auto) 37.7 L (50-75) % Lymph % (Auto) 46.2 H (25-40) % [place] % (Auto) 10.5 (3-14) % Eos % (Auto) 4.6 H (2-4) % Baso % (Auto) 1.0 (0-2) % Neut # (Auto) 2100 (8620-6129) /uL Lymph # (Auto) 2600 (9447-5420) /uL [place] # (Auto) 600 (0-900) /uL Eos # (Auto) 300 (0-450) /uL Baso # (Auto) 100 (0-100) /uL PT 11.5 (10.1-12.7) SECONDS INR 1.0 (0.9-1.3) APTT 37 H (26.4-36.2) SECONDS Sodium 140 (137-145) mmol/L Potassium 4.3 (3.4-5.1) mmol/L Chloride 107 (98-107) mmol/L Carbon Dioxide 28 (22-32) mmol/L BUN 18 H (7-17) mg/dL Creatinine 0.83 (0.52-1.04) mg/dL Estimated GFR > 60.0 (>60) mL/min BUN/Creatinine Ratio 21.7 (6-22) Glucose 105 H (70-100) mg/dL Calcium 9.2 (8.4-10.2) mg/dL Total Bilirubin 0.4 (0.2-1.3) mg/dL AST 31 (14-36) IU/L ALT 17 (<35) IU/L Alkaline Phosphatase 94 (38-126) U/L Total Protein 7.5 (6.3-8.2) g/dL Albumin 4.2 (3.5-5.0) g/dL Globulin 3.3 (1.7-4.1) g/dL Albumin/Globulin Ratio 1.3 (1.0-2.8) Lipase 143 (23-300) U/L Urine RBC (0-5/HPF) Urine WBC (0-5/HPF) Ur Squamous Epith Cells (0-5/HPF) Urine Bacteria (None) Ur Culture Indicated? 05/20/20 Range/Units 11:53 WBC (4.5-11.0) X10^3/uL RBC (4.0-5.2) X10^6/uL Hgb (12.0-16.0) g/dL Hct (36-46) % MCV (80-100) fL MCH (26-34) PG MCHC (30-36) % RDW (11.6-14.8) % Plt Count (150-400) X10^3/uL Neut % (Auto) (50-75) % Lymph % (Auto) (25-40) % [place] % (Auto) (3-14) % Eos % (Auto) (2-4) % Baso % (Auto) (0-2) % Neut # (Auto) (5764-5420) /uL Lymph # (Auto) (5059-4259) /uL [place] # (Auto) (0-900) /uL Eos # (Auto) (0-450) /uL Baso # (Auto) (0-100) /uL PT (10.1-12.7) SECONDS INR (0.9-1.3) APTT (26.4-36.2) SECONDS Sodium (137-145) mmol/L Potassium (3.4-5.1) mmol/L Chloride (98-107) mmol/L Carbon Dioxide (22-32) mmol/L BUN (7-17) mg/dL Creatinine (0.52-1.04) mg/dL Estimated GFR (>60) mL/min BUN/Creatinine Ratio (6-22) Glucose (70-100) mg/dL Calcium (8.4-10.2) mg/dL Total Bilirubin (0.2-1.3) mg/dL AST (14-36) IU/L ALT (<35) IU/L Alkaline Phosphatase (38-126) U/L Total Protein (6.3-8.2) g/dL Albumin (3.5-5.0) g/dL Globulin (1.7-4.1) g/dL Albumin/Globulin Ratio (1.0-2.8) Lipase (23-300) U/L Urine RBC None seen (0-5/HPF) Urine WBC 1-5/hpf (0-5/HPF) Ur Squamous Epith Cells 5-10 /hpf H (0-5/HPF) Urine Bacteria None seen (None) Ur Culture Indicated? Cult not indicated Point of care testing: Point of Care Testing Test Results Negative Urine Dip Bedside Urine Glucose Negative Bedside Urine Bilirubin - Negative Bedside Urine Ketone - Negative Urine Specific [place] 1.025 Bedside Urine Occult Blood + Bedside Urine pH 6.0 Bedside Urine Protein - Negative Bedside Urine Urobilinogen - Negative Bedside Urine Nitrite - Negative Bedside Urine Leukocytes - Negative Esterase Imaging Data US - abdomen: Radiologist's Impression: PROCEDURE: US PELVIC COMPLETE INDICATIONS: LEFT LOWER QUADRANT PAIN TECHNIQUE: Real-time scanning was performed of the pelvic organs, with image documentation. Additional endovaginal scanning was necessary due to incomplete visualization of the adnexal and endometrial structures by transabdominal scanning. COMPARISON: [facility], US, US PELVIC COMPLETE, 11/26/2019, 10:27. FINDINGS: Transabdominal scanning: Limited scanning through the kidneys shows no hydronephrosis. No pathologic free abdominal or pelvic fluid. Endovaginal scanning: Uterus: Uterus is normal in size at 8.8 x 6.3 x 4.6 cm. The endometrium measures 6.9 mm in combined thickness. Nabothian cysts are noted. Ovaries: Right ovary measures 3.2 x 2.1 x 2.6 cm. Left ovary measures 3.7 x 2.0 x 2.1 cm. Arterial and venous flow are identified. Prominent left ovarian follicles are noted. IMPRESSION: 1. Scattered left ovarian follicles. Otherwise, unremarkable exam. Dictated by: Melani Rizzo M.D. on 05/20/2020 at 12:54 ECG Data Attestation: I personally reviewed and interpreted this ECG as follows: Interpretation: Sinus rhythm rate 52 p.r. interval 132 QRS 78 QTC [address] changes artifact noted MDM Narrative Medical decision making narrative: Patient is having suprapubic pain ongoing for last 2 days. She has no flank pain does not clinically seem to be a kidney stone. She does have a history of PCOS pelvic ultrasound is essentially negative. She has an appointment with her obstetrician and gynaecologist Dr. Mosher today at 4:00 a.m.. I offered to do a pelvic exam here in the emergency department however she will defer in till that appointment today. She was given Toradol and fell asleep shortly afterwards. No sign of infection. At this time I do not think a 2nd CT is warranted blood work is overall reassuring. Discharge Plan Departure Patient Disposition: Home Clinical Impression: Abdominal pain Qualifiers: Abdominal location: lower abdomen, unspecified Qualified Code(s): R10.30 - Lower abdominal pain, unspecified Instructions: DI for Abdominal Pain-Adult Activity Restrictions/Additional Instructions: *You have been diagnosed with abdominal pain *What to do: At this time is unknown what the cause of your abdominal pain is. There were no other kidney stones seen on her CT scan from couple weeks ago. Please follow-up with Dr. Mosher today as scheduled for a pelvic exam *Continue to take medications as directed--> WITHIN 2 SAFEWAY IN ANACORTES Mobic 7.5 mg once a day-DO NOT COMBINE WITH OTHER NSAIDS SUCH IBUPROFEN, MOTRIN, ALEVE, ADVIL, NAPROXEN etc *Follow up with your primary care provider in 2-3 days *Return to ER if you should have increasing pain, vaginal bleeding more than to super pads or tampons an hour, or any new, worsening or concerning symptoms Prescriptions: New meloxicam [Mobic] 7.5 mg tablet 7.5 mg PO DAILY PRN (Reason: pain) Qty: 20 RF: 0 No Action ibuprofen 600 MG tablet 600 mg PO Q6HP PRNQty: 14 RF: 6 levonorgestrel-ethinyl estrad 0.15 mg-30 mcg (91) tablets,dose pack,3 month 1 tab PO DAILY Qty: 91 RF: 3 medroxyprogesterone [Provera] 10 mg tablet 10 mg PO .Q 2 hours PRN (Reason: bleeding) Qty: 30 RF: 0 Referrals: Justyna Beltran MD [Primary Care Provider] -
[2020-05-20 11:31] LABS: PTT Partial Thromboplastin Tim 37 SECONDS (26.4-36.2)
[2020-05-20 11:33] LABS: Alanine Aminotransferase 17 IU/L (<35); Albumin 4.2 g/dL (3.5-5.0); Albumin Globulin Ratio 1.3 (1.0-2.8); Alkaline Phosphatase 94 U/L (38-126); Aspartate Aminotransferase 31 IU/L (14-36); BUN Creatinine Ratio 21.7 (6-22); Bilirubin Total 0.4 mg/dL (0.2-1.3); Blood Urea Nitrogen 18 mg/dL (7-17); Calcium 9.2 mg/dL (8.4-10.2); Carbon Dioxide 28 mmol/L (22-32); Chloride 107 mmol/L (98-107); Estimated Glomerular Filt Rate > 60.0 mL/min (>60); Globulin 3.3 g/dL (1.7-4.1); Glucose 105 mg/dL (70-100); HEMOLYSIS < 15 (0-50); Lipase 143 U/L (23-300); Potassium 4.3 mmol/L (3.4-5.1); Sodium 140 mmol/L (137-145); Total Protein 7.5 g/dL (6.3-8.2)
--- NOTE | 2020-05-20 11:37 | DI.US.S_ITS ---
PROCEDURE: US PELVIC COMPLETE INDICATIONS: LEFT LOWER QUADRANT PAIN TECHNIQUE: Real-time scanning was performed of the pelvic organs, with image documentation. Additional endovaginal scanning was necessary due to incomplete visualization of the adnexal and endometrial structures by transabdominal scanning. COMPARISON: [facility], US, US PELVIC COMPLETE, 11/26/2019, 10:27. FINDINGS: Transabdominal scanning: Limited scanning through the kidneys shows no hydronephrosis. No pathologic free abdominal or pelvic fluid. Endovaginal scanning: Uterus: Uterus is normal in size at 8.8 x 6.3 x 4.6 cm. The endometrium measures 6.9 mm in combined thickness. Nabothian cysts are noted. Ovaries: Right ovary measures 3.2 x 2.1 x 2.6 cm. Left ovary measures 3.7 x 2.0 x 2.1 cm. Arterial and venous flow are identified. Prominent left ovarian follicles are noted. IMPRESSION: 1. Scattered left ovarian follicles. Otherwise, unremarkable exam. Dictated by: Melani Rizzo M.D. on 05/20/2020 at 12:54 Approved by: Melani Rizzo M.D. on 05/20/2020 at 12:58
[2020-05-20] MEDS: KETOROLAC 60 MG/2 ML VIAL 30 MG IV (11:43)
[2020-05-20] MEDS: SODIUM CHLORIDE 0.9% 1,000 ML 1000 ML IV (11:43)
[2020-05-20 12:20] LABS: Bacteria Urine None Seen; RBC Urine None Seen (0-5/HPF)
[2020-05-20 12:33] LABS: Culture Indicated Urine Cult Not Indicated; Squamous Epithelial Cell Urine 5-10 /HPF (0-5/HPF); WBC Urine 1-5/HPF (0-5/HPF)
== END 2020-05-20 13:38 | disposition home or self-care (01) ==
PROVIDERS: Emergency Provider Emergency Medicine; PCP Internal Medicine
DX: R10.32 Left lower quadrant pain (principal); Z87.442 Personal history of urinary calculi; E66.3 Overweight
CPT/HCPCS: 36415; 76856; 80053; 81003; 81015; 81025; 83690; 85025; 85610; 85730; 93005; 96361; 96374; 99283; 99284; J1885

== ENCOUNTER → 2022-04-24 12:32 | Outpatient (CLI) | payer OTHER, MEDICAID, SELFPAY ==
[2022-04-24 13:17] LABS: Influenza A - CEPHEID Flu A NEGATIVE (NEGATIVE); Influenza B - CEPHEID Flu B NEGATIVE (NEGATIVE); Respiratory Syncytial Virus Negative (Negative)
[2022-04-24 13:22] LABS: COVID-19 CEPHEID 4-PLEX PCR Negative (Negative)
== END ==
PROVIDERS: PCP Internal Medicine; Visit Provider Physician Assistant
DX: R05.9 Cough, unspecified (principal)
CPT/HCPCS: 0241U

== ENCOUNTER → 2022-06-22 15:05 | Outpatient (CLI) | payer OTHER, MEDICAID, SELFPAY ==
--- NOTE | 2022-06-22 15:07 | DI.US.S_ITS ---
PROCEDURE: US OB >= 14 WEEKS FETUS INDICATIONS: dating and viability OUTSIDE/PRIOR DATING DATA: First dating scan (date and location): Today 06/22/2022. Estimated date of delivery (NABIL) from first dating scan: 12/07/2022 TECHNIQUE: Real-time scanning was performed of the fetus, with image documentation and biometric measurements. COMPARISON: None. FINDINGS: General: A single living intrauterine gestation is present. Presentation: Variable. Placenta: Placental position is anterior , without previa. heart rate: 140 beats per minute. biometrics: [place]-rump length 10.1 cm 15 weeks and 6 days Biparietal diameter: 3.3 cm Head circumference: 12.2 cm Abdominal circumference: 10.1 cm Femur length: 1.9 cm Composite gestational age from present scan: 16 weeks IMPRESSION: Single living intrauterine at an ultrasound age of 16 weeks. Consider follow-up for anatomic survey. Dictated by: Fred Beavers M.D. on 06/22/2022 at 16:17 Approved by: Fred Beavers M.D. on 06/22/2022 at 16:19
== END ==
PROVIDERS: PCP Internal Medicine; Referring Provider Obstetrics & Gynecology; Visit Provider Obstetrics & Gynecology
DX: Z36.87 Encounter for antenatal screening for uncertain dates (principal); Z3A.16 16 weeks gestation of pregnancy
CPT/HCPCS: 76811

== ENCOUNTER 2022-07-16 08:51 | Emergency (ER) | payer OTHER, MEDICAID, SELFPAY ==
[2022-07-16] VITALS (75 sets, daily range): BP systolic 76–151; BP diastolic 41–87; PULSE 59–85; RESP 13–41; TEMP 36.3–37.1; O2SAT 97–100; BMI 34.3
--- NOTE | 2022-07-16 | DI.US.S_ITS ---
PROCEDURE: US ABDOMEN limited INDICATIONS: RUQ/RT FLANK PAIN. HX CHOLECYSTECTOMY. ?BILIARY, APPY, HYDRO TECHNIQUE: Real-time scanning was performed of the abdominal and retroperitoneal organs, with image documentation. COMPARISON: None. FINDINGS: Liver: Liver is normal in size and homogeneous in echotexture. Main portal vein is patent with antegrade flow. Gallbladder: Surgically absent. Biliary ducts: Intrahepatic bile ducts are non-dilated. Extrahepatic bile duct caliber measures 7 mm. Normal is 6-7 mm or less in diameter, or 10 mm or less post-cholecystectomy. Pancreas: Visualized portions of the pancreas are sonographically normal. Kidneys: Right renal length of 10.7 cm. No right hydronephrosis or evidence of right nephrolithiasis. Left kidney not evaluated per ordering physician. Miscellaneous: Appendix not identified sonographically. IMPRESSION: 1. Prior cholecystectomy. 2. No right hydronephrosis or evidence of right nephrolithiasis. 3. Appendix not identified sonographically. 4. No biliary ductal dilation demonstrated. Dictated by: Akil Horn M.D. on 07/16/2022 at 10:46 Approved by: Akil Horn M.D. on 07/16/2022 at 10:51
[2022-07-16 09:14] LABS: Add Manual Diff / Slide Review NO; Basophils Absolute Auto 0 /uL (0-100); Basophils Percent Auto 0.3 % (0-2); Eosinophils Absolute Auto 200 /uL (0-450); Eosinophils Percent Auto 2.5 % (2-4); Hemoglobin 12.3 g/dL (12.0-16.0); Lymphocytes Absolute Auto 2500 /uL (1100-4500); Lymphocytes Percent Auto 28.7 % (25-40); Mean Corpuscular HGB Conc 34.2 % (30-36); Mean Corpuscular Hemoglobin 29.9 PG (26-34); Mean Corpuscular Volume 87.4 fL (80-100); Monocytes Absolute Auto 700 /uL (0-900); Monocytes Percent Auto 8.3 % (3-14); Neutrophils Absolute Auto 5300 /uL (1500-7000); Neutrophils Percent Auto 60.2 % (50-75); Platelet Count 208 X10^3/uL (150-400); Red Blood Cell Count 4.12 X10^6/uL (4.0-5.2); Red Cell Distribution Width 13.2 % (11.6-14.8); White Blood Cell Count 8.8 X10^3/uL (4.5-11.0)
[2022-07-16 09:21] LABS: Prothrombin Time 11.7 SECONDS (10.1-12.7)
--- NOTE | 2022-07-16 09:24 | DI.US.S_ITS ---
PROCEDURE: US OB LIMITED INDICATIONS: ABDOMINAL PAIN OUTSIDE/PRIOR DATING DATA: Last menstrual period (LMP): Unknown. LMP-based estimated date of delivery (NABIL): Unknown. First dating scan (date and location): 06/22/2022. Estimated date of delivery (NABIL) from first dating scan: 12/07/2022 The calculations are made using the working NABIL of 12/07/2022. TECHNIQUE: Real-time scanning was performed of the fetus for biophysical profile, with image documentation. Endovaginal scanning: Not indicated COMPARISON: None. FINDINGS: General: A single living intrauterine gestation is present. Presentation: Transverse with head towards maternal left side. Placenta: Placental position is anterior, without previa. Amniotic fluid index: 13.6 cm, normal range is 5-24 cm. Single deepest vertical pocket is 5.2 cm. heart rate: 140 beats per minute. Maternal cervical canal: 4.7 cm long. Normal lower limit is 2.5 cm. Estimated gestational age from initial scan: 19 weeks, 3 days. IMPRESSION: 1. Single live intrauterine gestation with fetus in transverse presentation. heart rate is 140 beats per minute. Normal amount of amniotic fluid. 2. Placenta location is anterior, no placenta previa. No evidence of abruption. We strive to produce accurate, complete, and clear reports of imaging services. To assist us in improving patient care, this report was composed using standard report templates and voice recognition software. Therefore, it may contain abnormal punctuation, insertions and/or omissions. Occasional wrong-word or sound-alike substitutions may occur. Though we review the report and make efforts to correct it, we do recommend that the report be read carefully in proper context to recognize any text inaccuracies. Dictated by: Morris Neal M.D. on 07/16/2022 at 11:05 Approved by: Morris Neal M.D. on 07/16/2022 at 11:07
--- NOTE | 2022-07-16 09:24 | ED.ABDPAIN ---
HPI - Abdominal Pain <Juliana Ghosh DO - Last Filed: 07/17/22 07:21> General Chief Complaint: Abdominal Pain Stated Complaint: pain were gallbladder was/ 19 weeks Time Seen by Provider: 07/16/22 09:08 Source: patient Mode of arrival: Ambulatory History of Present Illness HPI narrative: Patient 41-year-old female currently 19 weeks presenting today with right upper quadrant pain ongoing for the last 3 days. Says she feels like is her gallbladder however she is had a cholecystectomy. Feels slightly nauseous tender all along that right side no definite flank pain not radiating. She denies any fever chills. Some mild nausea. No painful or frequent urination. She had an initial ultrasound done by her PCP but has yet to see an OBGYN she does have a [facility] appointment on the 28 of July. She denies any chest pain shortness of breath. No vaginal bleeding. She is taking vitamins. She has chronic ongoing back pain she used to be on a lot of morphine but not on any now. Related Data Previous Rx's Medication Instructions Recorded vits no.126-ferrous fum 1 tab PO DAILY #90 tabs 06/14/22 28 mg iron-folic acid 800 mcg tablet (Classic ) Allergies Allergy/AdvReac Type Severity Reaction Status Date / Time morphine Allergy Intermediate pt felt Verified 07/16/22 09:00 like she was on fire paper tape Allergy Uncoded 07/16/22 09:00 plastic tape Allergy Uncoded 07/16/22 09:00 Review of Systems <Juliana Ghosh DO - Last Filed: 07/17/22 07:21> Review of Systems ROS Unobtainable: All systems reviewed & are unremarkable except as noted in HPI and below Patient History <Juliana Ghosh DO - Last Filed: 07/17/22 07:21> Medical History History of Polycystic ovaries (10/06/15) Viral URI with cough Social History Smoking Status: Former smoker Smoking Status: Former smoker alcohol intake frequency: holidays/special occasions only Substance Use Type: marijuana Exam <DO Linnea Sharpe Last Filed: 07/17/22 07:21> Initial Vital Signs Initial Vital Signs: Vital Signs Pulse Rate 70 07/16/22 08:58 Blood Pressure 117/68 07/16/22 08:58 Pulse Oximetry 99 07/16/22 08:58 GENERAL: Alert 41-year-old female appears extremely uncomfortable HEENT: Head atraumatic,EOMI, pupils reactive, face symmetric, [moist] mucous membranes CARDIOVASCULAR: Regular rate and rhythm without murmurs, rubs or gallops. RESPIRATORY: Breath sounds equal bilaterally, no wheezes rales or rhonchi. ABDOMEN: Soft tender right upper quadrant maybe some right lower quadrant no guarding no rebound. Gravid : No CVA tenderness EXTREMITIES: Normal range of motion, no clubbing or edema. Neurovascularly intact NEUROLOGICAL: Alert and oriented x4. SKIN: Warm, dry, no laceration, no petechiae, no rashes or lesions. <Charo Henderson, DO - Last Filed: 07/17/22 04:16> Initial Vital Signs Initial Vital Signs: Vital Signs Pulse Rate 70 07/16/22 08:58 Blood Pressure 117/68 07/16/22 08:58 Pulse Oximetry 99 07/16/22 08:58 Course <Juliana Ghosh, DO - Last Filed: 07/17/22 07:21> Orders Ordered: ED Orders 07/16/22 22:29 EC echo doppler complete Stat 07/17/22 EKG-12 Lead Routine 07/17/22 01:02 XR chest for PICC 1V Stat 07/17/22 01:15 Chest [XR chest 1V] Stat Discontinued Medications Acetaminophen (Acetaminophen 325 Mg Tablet) 975 mg PO NOW ONE Stop: 07/16/22 11:21 Last Admin: 07/16/22 11:29 Dose: 975 mg Documented By: JAQUELIN Fentanyl (Fentanyl 100 Mcg/2 Ml Inj) 25 mcg IV NOW ONE Stop: 07/17/22 01:24 Last Admin: 07/17/22 01:28 Dose: 25 mcg Documented By: MARLEN Sodium Chloride (Normal Saline 0.9%) 1,000 mls @ 1,000 mls/hr IV BOLUS ONE Stop: 07/16/22 10:23 Last Infusion: 07/16/22 11:03 Dose: 0 mls/hr Documented By: Admin: 07/16/22 10:06 Dose: 1,000 mls/hr Documented By: JIM Sodium Chloride (Normal Saline 0.9%) 1,000 mls @ 1,000 mls/hr IV BOLUS ONE Stop: 07/16/22 12:19 Last Infusion: 07/16/22 12:47 Dose: 0 mls/hr Documented By: Admin: 07/16/22 11:29 Dose: 1,000 mls/hr Documented By: JAQUELIN Sodium Chloride (Normal Saline 0.9%) 1,000 mls @ 1,000 mls/hr IV BOLUS ONE Stop: 07/16/22 14:56 Last Infusion: 07/16/22 16:23 Dose: 0 mls/hr Documented By: Infusion: 07/16/22 15:50 Dose: 1,000 mls/hr Documented By: Infusion: 07/16/22 14:43 Dose: 0 mls/hr Documented By: Admin: 07/16/22 14:26 Dose: 1,000 mls/hr Documented By: MARLEN Lactated Ringer's (Lactated Ringers) 1,000 mls @ 1,000 mls/hr IV BOLUS ONE Stop: 07/16/22 17:08 Last Infusion: 07/16/22 17:10 Dose: 0 mls/hr Documented By: Admin: 07/16/22 16:11 Dose: 1,000 mls/hr Documented By: MARLEN Piperacillin Sod/Tazobactam (Sod 4.5 gm/ Sodium Chloride) 100 mls @ 200 mls/hr IV NOW ONE Stop: 07/16/22 16:10 Last Infusion: 07/16/22 17:01 Dose: 0 mls/hr Documented By: Admin: 07/16/22 16:14 Dose: 200 mls/hr Documented By: MARLEN Lactated Ringer's (Lactated Ringers) 1,000 mls @ 150 mls/hr IV CONT OMKAR Last Infusion: 07/17/22 03:08 Dose: 0 mls/hr Documented By: Admin: 07/16/22 17:47 Dose: 150 mls/hr Documented By: MARLEN Piperacillin Sod/Tazobactam (Sod 4.5 gm/ Sodium Chloride) 100 mls @ 25 mls/hr IV Q8H OMKAR Last Infusion: 07/17/22 03:07 Dose: 0 mls/hr Documented By: Admin: 07/16/22 23:42 Dose: 25 mls/hr Documented By: MARLEN Morphine Sulfate (Morphine 2 Mg/Ml Inj) 2 mg IV NOW ONE Stop: 07/16/22 09:25 Last Admin: 07/16/22 10:05 Dose: 2 mg Documented By: JIM Ondansetron HCl (Ondansetron 4 Mg/2 Ml Inj) 4 mg IV NOW ONE Stop: 07/16/22 09:25 Last Admin: 07/16/22 10:05 Dose: 4 mg Documented By: JIM Ondansetron HCl (Ondansetron 4 Mg/2 Ml Inj) 4 mg IV NOW ONE Stop: 07/16/22 17:45 Last Admin: 07/16/22 17:47 Dose: 4 mg Documented By: MARLEN Vital Signs Vital signs: Vital Signs - 8 hr 07/16/22 23:15 07/16/22 23:15 07/16/22 23:30 Pulse Rate 65 Respiratory Rate Blood Pressure 106/72 100/59 L Pulse Oximetry 98 07/16/22 23:30 07/16/22 23:49 07/16/22 23:56 Pulse Rate 65 72 72 Respiratory Rate 20 28 H Blood Pressure Pulse Oximetry 97 100 07/16/22 23:56 07/17/22 00:00 07/17/22 00:15 Pulse Rate 75 61 Respiratory Rate 39 H 37 H Blood Pressure 151/87 H Pulse Oximetry 99 99 07/17/22 00:30 07/17/22 00:45 07/17/22 01:00 Pulse Rate 58 L 60 69 Respiratory Rate 20 18 25 H Blood Pressure Pulse Oximetry 97 99 95 07/17/22 01:15 07/17/22 01:16 07/17/22 01:16 Pulse Rate 114 H 86 Respiratory Rate 86 H 35 H Blood Pressure 144/80 H Pulse Oximetry 99 98 07/17/22 01:30 07/17/22 01:44 07/17/22 01:44 Pulse Rate 72 64 Respiratory Rate 31 H 23 Blood Pressure 143/71 H Pulse Oximetry 96 99 07/17/22 01:45 07/17/22 01:59 07/17/22 01:59 Pulse Rate 64 60 Respiratory Rate 35 H 22 Blood Pressure 110/67 Pulse Oximetry 98 98 07/17/22 02:00 07/17/22 02:00 07/17/22 02:15 Pulse Rate 62 Respiratory Rate 24 Blood Pressure 109/66 100/58 L Pulse Oximetry 99 07/17/22 02:15 07/17/22 02:30 07/17/22 02:30 Pulse Rate 65 64 Respiratory Rate 22 19 Blood Pressure 97/56 L Pulse Oximetry 98 97 07/17/22 02:45 07/17/22 02:45 07/17/22 03:00 Pulse Rate 60 76 Respiratory Rate 20 38 H Blood Pressure 100/66 Pulse Oximetry 99 99 <Charo Henderson, - Last Filed: 07/17/22 04:16> Orders Ordered: ED Orders 07/16/22 22:29 EC echo doppler complete Stat 07/17/22 EKG-12 Lead Routine 07/17/22 01:02 XR chest for PICC 1V Stat 07/17/22 01:15 Chest [XR chest 1V] Stat Discontinued Medications Acetaminophen (Acetaminophen 325 Mg Tablet) 975 mg PO NOW ONE Stop: 07/16/22 11:21 Last Admin: 07/16/22 11:29 Dose: 975 mg Documented By: JAQUELIN Fentanyl (Fentanyl 100 Mcg/2 Ml Inj) 25 mcg IV NOW ONE Stop: 07/17/22 01:24 Last Admin: 07/17/22 01:28 Dose: 25 mcg Documented By: MARLEN Sodium Chloride (Normal Saline 0.9%) 1,000 mls @ 1,000 mls/hr IV BOLUS ONE Stop: 07/16/22 10:23 Last Infusion: 07/16/22 11:03 Dose: 0 mls/hr Documented By: Admin: 07/16/22 10:06 Dose: 1,000 mls/hr Documented By: JIM Sodium Chloride (Normal Saline 0.9%) 1,000 mls @ 1,000 mls/hr IV BOLUS ONE Stop: 07/16/22 12:19 Last Infusion: 07/16/22 12:47 Dose: 0 mls/hr Documented By: Admin: 07/16/22 11:29 Dose: 1,000 mls/hr Documented By: JAQUELIN Sodium Chloride (Normal Saline 0.9%) 1,000 mls @ 1,000 mls/hr IV BOLUS ONE Stop: 07/16/22 14:56 Last Infusion: 07/16/22 16:23 Dose: 0 mls/hr Documented By: Infusion: 07/16/22 15:50 Dose: 1,000 mls/hr Documented By: Infusion: 07/16/22 14:43 Dose: 0 mls/hr Documented By: Admin: 07/16/22 14:26 Dose: 1,000 mls/hr Documented By: MARLEN Lactated Ringer's (Lactated Ringers) 1,000 mls @ 1,000 mls/hr IV BOLUS ONE Stop: 07/16/22 17:08 Last Infusion: 07/16/22 17:10 Dose: 0 mls/hr Documented By: Admin: 07/16/22 16:11 Dose: 1,000 mls/hr Documented By: MARLEN Piperacillin Sod/Tazobactam (Sod 4.5 gm/ Sodium Chloride) 100 mls @ 200 mls/hr IV NOW ONE Stop: 07/16/22 16:10 Last Infusion: 07/16/22 17:01 Dose: 0 mls/hr Documented By: Admin: 07/16/22 16:14 Dose: 200 mls/hr Documented By: MARLEN Lactated Ringer's (Lactated Ringers) 1,000 mls @ 150 mls/hr IV CONT OMKAR Last Infusion: 07/17/22 03:08 Dose: 0 mls/hr Documented By: Admin: 07/16/22 17:47 Dose: 150 mls/hr Documented By: MARLEN Piperacillin Sod/Tazobactam (Sod 4.5 gm/ Sodium Chloride) 100 mls @ 25 mls/hr IV Q8H [facility] Last Infusion: 07/17/22 03:07 Dose: 0 mls/hr Documented By: Admin: 07/16/22 23:42 Dose: 25 mls/hr Documented By: MARLEN Morphine Sulfate (Morphine 2 Mg/Ml Inj) 2 mg IV NOW ONE Stop: 07/16/22 09:25 Last Admin: 07/16/22 10:05 Dose: 2 mg Documented By: JIM Ondansetron HCl (Ondansetron 4 Mg/2 Ml Inj) 4 mg IV NOW ONE Stop: 07/16/22 09:25 Last Admin: 07/16/22 10:05 Dose: 4 mg Documented By: JIM Ondansetron HCl (Ondansetron 4 Mg/2 Ml Inj) 4 mg IV NOW ONE Stop: 07/16/22 17:45 Last Admin: 07/16/22 17:47 Dose: 4 mg Documented By: SB Vital Signs Vital signs: Vital Signs - 8 hr 07/16/22 23:15 07/16/22 23:15 07/16/22 23:30 Pulse Rate 65 Respiratory Rate Blood Pressure 106/72 100/59 L Pulse Oximetry 98 07/16/22 23:30 07/16/22 23:49 07/16/22 23:56 Pulse Rate 65 72 72 Respiratory Rate 20 28 H Blood Pressure Pulse Oximetry 97 100 07/16/22 23:56 07/17/22 00:00 07/17/22 00:15 Pulse Rate 75 61 Respiratory Rate 39 H 37 H Blood Pressure 151/87 H Pulse Oximetry 99 99 07/17/22 00:30 07/17/22 00:45 07/17/22 01:00 Pulse Rate 58 L 60 69 Respiratory Rate 20 18 25 H Blood Pressure Pulse Oximetry 97 99 95 07/17/22 01:15 07/17/22 01:16 07/17/22 01:16 Pulse Rate 114 H 86 Respiratory Rate 86 H 35 H Blood Pressure 144/80 H Pulse Oximetry 99 98 07/17/22 01:30 07/17/22 01:44 07/17/22 01:44 Pulse Rate 72 64 Respiratory Rate 31 H 23 Blood Pressure 143/71 H Pulse Oximetry 96 99 07/17/22 01:45 07/17/22 01:59 07/17/22 01:59 Pulse Rate 64 60 Respiratory Rate 35 H 22 Blood Pressure 110/67 Pulse Oximetry 98 98 07/17/22 02:00 07/17/22 02:00 07/17/22 02:15 Pulse Rate 62 Respiratory Rate 24 Blood Pressure 109/66 100/58 L Pulse Oximetry 99 07/17/22 02:15 07/17/22 02:30 07/17/22 02:30 Pulse Rate 65 64 Respiratory Rate 22 19 Blood Pressure 97/56 L Pulse Oximetry 98 97 07/17/22 02:45 07/17/22 02:45 07/17/22 03:00 Pulse Rate 60 76 Respiratory Rate 20 38 H Blood Pressure 100/66 Pulse Oximetry 99 99 MDM - Abdominal Pain <Juliana Ghosh DO - Last Filed: 02/18/23 07:21> Lab Data 07/16/22 09:00 07/16/22 09:00 Labs: Lab Results 07/16/22 07/16/22 07/16/22 Range/Units 09:00 09:00 09:00 WBC 8.8 (4.5-11.0) X10^3/uL RBC 4.12 (4.0-5.2) X10^6/uL Hgb 12.3 (12.0-16.0) g/dL Hct 36.0 (36-46) % MCV 87.4 (80-100) fL MCH 29.9 (26-34) PG MCHC 34.2 (30-36) % RDW 13.2 (11.6-14.8) % Plt Count 208 (150-400) X10^3/uL Neut % (Auto) 60.2 (50-75) % Lymph % (Auto) 28.7 (25-40) % [place] % (Auto) 8.3 (3-14) % Eos % (Auto) 2.5 (2-4) % Baso % (Auto) 0.3 (0-2) % Neut # (Auto) 5300 (6705-8758) /uL Lymph # (Auto) 2500 (6753-5862) /uL [place] # (Auto) 700 (0-900) /uL Eos # (Auto) 200 (0-450) /uL Baso # (Auto) 0 (0-100) /uL PT 11.7 (10.1-12.7) SECONDS INR 1.0 (0.9-1.3) Sodium 138 (137-145) mmol/L Potassium 3.6 (3.4-5.1) mmol/L Chloride 106 (98-107) mmol/L Carbon Dioxide 23 (22-32) mmol/L BUN 13 (7-17) mg/dL Creatinine 0.56 (0.52-1.04) mg/dL Estimated GFR > 60 (>60) mL/min BUN/Creatinine Ratio 23.2 H (6-22) Glucose 87 (70-100) mg/dL Lactate Calcium 8.6 (8.4-10.2) mg/dL Total Bilirubin 0.5 (0.2-1.3) mg/dL AST 25 (14-36) IU/L ALT 22 (<35) IU/L Alkaline Phosphatase 64 (38-126) U/L Total Creatine Kinase (30-135) U/L CK-MB (CK-2) CK-MB (CK-2) Rel Index Troponin I (0.01-0.034) ng/mL Total Protein 6.8 (6.3-8.2) g/dL Albumin 3.6 (3.5-5.0) g/dL Globulin 3.2 (1.7-4.1) g/dL Albumin/Globulin Ratio 1.1 (1.0-2.8) Lipase 75 (23-300) U/L Procalcitonin Urine Color Urine Appearance Urine pH (4.5-8.0) Ur Specific [place] (1.000-1.035) Urine Protein (Negative) Urine Glucose (UA) (Negative) g/dL Urine Ketones (NEGATIVE) Urine Occult Blood (Negative) Urine Nitrate (Negative) Urine Bilirubin (NEGATIVE) Urine Urobilinogen (0.2) E.U./dL Ur Leukocyte Esterase (NEGATIVE) Urine RBC (0-5/HPF) Urine WBC (0-5/HPF) Ur Squamous Epith Cells (0-5/HPF) Urine Bacteria (None) Ur Culture Indicated? U Opiates 300ng/mL cut (Negative) Ur Oxycodone Screen (Negative) Urine Methadone Screen (Negative) Ur Barbiturates Screen (Negative) U Tricyclic Antidepress (Negative) Ur Phencyclidine Scrn (Negative) Ur Amphetamines Screen (Negative) U Methamphetamines Scrn (Negative) Ur MDMA Scrn (Ecstasy) (Negative) U Benzodiazepines Scrn (Negative) Urine Cocaine Screen (Negative) U Marijuana (THC) Screen (Negative) SARS-CoV-2 (PCR) (Negative) Influenza A (RT-PCR) (NEGATIVE) Influenza B (RT-PCR) (NEGATIVE) RSV (PCR) (Negative) 07/16/22 07/16/22 07/16/22 Range/Units 09:00 09:00 11:11 WBC (4.5-11.0) X10^3/uL RBC (4.0-5.2) X10^6/uL Hgb (12.0-16.0) g/dL Hct (36-46) % MCV (80-100) fL MCH (26-34) PG MCHC (30-36) % RDW (11.6-14.8) % Plt Count (150-400) X10^3/uL Neut % (Auto) (50-75) % Lymph % (Auto) (25-40) % [place] % (Auto) (3-14) % Eos % (Auto) (2-4) % Baso % (Auto) (0-2) % Neut # (Auto) (8714-8112) /uL Lymph # (Auto) (4055-2957) /uL [place] # (Auto) (0-900) /uL Eos # (Auto) (0-450) /uL Baso # (Auto) (0-100) /uL PT (10.1-12.7) SECONDS INR (0.9-1.3) Sodium (137-145) mmol/L Potassium (3.4-5.1) mmol/L Chloride (98-107) mmol/L Carbon Dioxide (22-32) mmol/L BUN (7-17) mg/dL Creatinine (0.52-1.04) mg/dL Estimated GFR (>60) mL/min BUN/Creatinine Ratio (6-22) Glucose (70-100) mg/dL Lactate Cancelled Calcium (8.4-10.2) mg/dL Total Bilirubin (0.2-1.3) mg/dL AST (14-36) IU/L ALT (<35) IU/L Alkaline Phosphatase (38-126) U/L Total Creatine Kinase (30-135) U/L CK-MB (CK-2) CK-MB (CK-2) Rel Index Troponin I (0.01-0.034) ng/mL Total Protein (6.3-8.2) g/dL Albumin (3.5-5.0) g/dL Globulin (1.7-4.1) g/dL Albumin/Globulin Ratio (1.0-2.8) Lipase (23-300) U/L Procalcitonin Cancelled Urine Color Yellow Urine Appearance Clear Urine pH 5.0 (4.5-8.0) Ur Specific [place] 1.020 (1.000-1.035) Urine Protein Negative (Negative) Urine Glucose (UA) Negative (Negative) g/dL Urine Ketones Trace H (NEGATIVE) Urine Occult Blood Negative (Negative) Urine Nitrate Negative (Negative) Urine Bilirubin Negative (NEGATIVE) Urine Urobilinogen 0.2 (0.2) E.U./dL Ur Leukocyte Esterase 1+ H (NEGATIVE) Urine RBC None seen (0-5/HPF) Urine WBC 1-5/hpf (0-5/HPF) Ur Squamous Epith Cells 1-5 /hpf (0-5/HPF) Urine Bacteria None seen (None) Ur Culture Indicated? Specimen cultured U Opiates 300ng/mL cut (Negative) Ur Oxycodone Screen (Negative) Urine Methadone Screen (Negative) Ur Barbiturates Screen (Negative) U Tricyclic Antidepress (Negative) Ur Phencyclidine Scrn (Negative) Ur Amphetamines Screen (Negative) U Methamphetamines Scrn (Negative) Ur MDMA Scrn (Ecstasy) (Negative) U Benzodiazepines Scrn (Negative) Urine Cocaine Screen (Negative) U Marijuana (THC) Screen (Negative) SARS-CoV-2 (PCR) (Negative) Influenza A (RT-PCR) (NEGATIVE) Influenza B (RT-PCR) (NEGATIVE) RSV (PCR) (Negative) 07/16/22 07/16/22 07/16/22 Range/Units 11:11 15:52 16:15 WBC (4.5-11.0) X10^3/uL RBC (4.0-5.2) X10^6/uL Hgb (12.0-16.0) g/dL Hct (36-46) % MCV (80-100) fL MCH (26-34) PG MCHC (30-36) % RDW (11.6-14.8) % Plt Count (150-400) X10^3/uL Neut % (Auto) (50-75) % Lymph % (Auto) (25-40) % [place] % (Auto) (3-14) % Eos % (Auto) (2-4) % Baso % (Auto) (0-2) % Neut # (Auto) (0995-8313) /uL Lymph # (Auto) (0140-5557) /uL [place] # (Auto) (0-900) /uL Eos # (Auto) (0-450) /uL Baso # (Auto) (0-100) /uL PT (10.1-12.7) SECONDS INR (0.9-1.3) Sodium (137-145) mmol/L Potassium (3.4-5.1) mmol/L Chloride (98-107) mmol/L Carbon Dioxide (22-32) mmol/L BUN (7-17) mg/dL Creatinine (0.52-1.04) mg/dL Estimated GFR (>60) mL/min BUN/Creatinine Ratio (6-22) Glucose (70-100) mg/dL Lactate 0.7 Calcium (8.4-10.2) mg/dL Total Bilirubin (0.2-1.3) mg/dL AST (14-36) IU/L ALT (<35) IU/L Alkaline Phosphatase (38-126) U/L Total Creatine Kinase (30-135) U/L CK-MB (CK-2) CK-MB (CK-2) Rel Index Troponin I (0.01-0.034) ng/mL Total Protein (6.3-8.2) g/dL Albumin (3.5-5.0) g/dL Globulin (1.7-4.1) g/dL Albumin/Globulin Ratio (1.0-2.8) Lipase (23-300) U/L Procalcitonin Urine Color Urine Appearance Urine pH (4.5-8.0) Ur Specific [place] (1.000-1.035) Urine Protein (Negative) Urine Glucose (UA) (Negative) g/dL Urine Ketones (NEGATIVE) Urine Occult Blood (Negative) Urine Nitrate (Negative) Urine Bilirubin (NEGATIVE) Urine Urobilinogen (0.2) E.U./dL Ur Leukocyte Esterase (NEGATIVE) Urine RBC (0-5/HPF) Urine WBC (0-5/HPF) Ur Squamous Epith Cells (0-5/HPF) Urine Bacteria (None) Ur Culture Indicated? U Opiates 300ng/mL cut Positive H (Negative) Ur Oxycodone Screen Negative (Negative) Urine Methadone Screen Negative (Negative) Ur Barbiturates Screen Negative (Negative) U Tricyclic Antidepress Negative (Negative) Ur Phencyclidine Scrn Negative (Negative) Ur Amphetamines Screen Negative (Negative) U Methamphetamines Scrn Negative (Negative) Ur MDMA Scrn (Ecstasy) Negative (Negative) U Benzodiazepines Scrn Negative (Negative) Urine Cocaine Screen Negative (Negative) U Marijuana (THC) Screen Positive H (Negative) SARS-CoV-2 (PCR) Negative (Negative) Influenza A (RT-PCR) (NEGATIVE) Influenza B (RT-PCR) (NEGATIVE) RSV (PCR) (Negative) 07/16/22 07/16/22 07/16/22 Range/Units 16:28 16:28 16:28 WBC 8.2 (4.5-11.0) X10^3/uL RBC 3.86 L (4.0-5.2) X10^6/uL Hgb 11.7 L (12.0-16.0) g/dL Hct 34.1 L (36-46) % MCV 88.3 (80-100) fL MCH 30.4 (26-34) PG MCHC 34.4 (30-36) % RDW 13.4 (11.6-14.8) % Plt Count 188 (150-400) X10^3/uL Neut % (Auto) 55.9 (50-75) % Lymph % (Auto) 33.2 (25-40) % [place] % (Auto) 8.3 (3-14) % Eos % (Auto) 2.2 (2-4) % Baso % (Auto) 0.4 (0-2) % Neut # (Auto) 4600 (1575-3985) /uL Lymph # (Auto) 2700 (7132-3633) /uL [place] # (Auto) 700 (0-900) /uL Eos # (Auto) 200 (0-450) /uL Baso # (Auto) 0 (0-100) /uL PT (10.1-12.7) SECONDS INR (0.9-1.3) Sodium 136 L (137-145) mmol/L Potassium 3.9 (3.4-5.1) mmol/L Chloride 110 H (98-107) mmol/L Carbon Dioxide 22 (22-32) mmol/L BUN 9 (7-17) mg/dL Creatinine 0.50 L (0.52-1.04) mg/dL Estimated GFR > 60 (>60) mL/min BUN/Creatinine Ratio 18.0 (6-22) Glucose 79 (70-100) mg/dL Lactate Calcium 7.7 L (8.4-10.2) mg/dL Total Bilirubin 0.5 (0.2-1.3) mg/dL AST 25 (14-36) IU/L ALT 20 (<35) IU/L Alkaline Phosphatase 56 (38-126) U/L Total Creatine Kinase (30-135) U/L CK-MB (CK-2) CK-MB (CK-2) Rel Index Troponin I (0.01-0.034) ng/mL Total Protein 6.0 L (6.3-8.2) g/dL Albumin 3.2 L (3.5-5.0) g/dL Globulin 2.8 (1.7-4.1) g/dL Albumin/Globulin Ratio 1.1 (1.0-2.8) Lipase (23-300) U/L Procalcitonin 0.04 Urine Color Urine Appearance Urine pH (4.5-8.0) Ur Specific [place] (1.000-1.035) Urine Protein (Negative) Urine Glucose (UA) (Negative) g/dL Urine Ketones (NEGATIVE) Urine Occult Blood (Negative) Urine Nitrate (Negative) Urine Bilirubin (NEGATIVE) Urine Urobilinogen (0.2) E.U./dL Ur Leukocyte Esterase (NEGATIVE) Urine RBC (0-5/HPF) Urine WBC (0-5/HPF) Ur Squamous Epith Cells (0-5/HPF) Urine Bacteria (None) Ur Culture Indicated? U Opiates 300ng/mL cut (Negative) Ur Oxycodone Screen (Negative) Urine Methadone Screen (Negative) Ur Barbiturates Screen (Negative) U Tricyclic Antidepress (Negative) Ur Phencyclidine Scrn (Negative) Ur Amphetamines Screen (Negative) U Methamphetamines Scrn (Negative) Ur MDMA Scrn (Ecstasy) (Negative) U Benzodiazepines Scrn (Negative) Urine Cocaine Screen (Negative) U Marijuana (THC) Screen (Negative) SARS-CoV-2 (PCR) (Negative) Influenza A (RT-PCR) (NEGATIVE) Influenza B (RT-PCR) (NEGATIVE) RSV (PCR) (Negative) 07/16/22 07/16/22 Range/Units 16:28 16:41 WBC (4.5-11.0) X10^3/uL RBC (4.0-5.2) X10^6/uL Hgb (12.0-16.0) g/dL Hct (36-46) % MCV (80-100) fL MCH (26-34) PG MCHC (30-36) % RDW (11.6-14.8) % Plt Count (150-400) X10^3/uL Neut % (Auto) (50-75) % Lymph % (Auto) (25-40) % [place] % (Auto) (3-14) % Eos % (Auto) (2-4) % Baso % (Auto) (0-2) % Neut # (Auto) (3399-4289) /uL Lymph # (Auto) (7882-7028) /uL [place] # (Auto) (0-900) /uL Eos # (Auto) (0-450) /uL Baso # (Auto) (0-100) /uL PT (10.1-12.7) SECONDS INR (0.9-1.3) Sodium (137-145) mmol/L Potassium (3.4-5.1) mmol/L Chloride (98-107) mmol/L Carbon Dioxide (22-32) mmol/L BUN (7-17) mg/dL Creatinine (0.52-1.04) mg/dL Estimated GFR (>60) mL/min BUN/Creatinine Ratio (6-22) Glucose (70-100) mg/dL Lactate Calcium (8.4-10.2) mg/dL Total Bilirubin (0.2-1.3) mg/dL AST (14-36) IU/L ALT (<35) IU/L Alkaline Phosphatase (38-126) U/L Total Creatine Kinase 49 (30-135) U/L CK-MB (CK-2) TNP CK-MB (CK-2) Rel Index TNP Troponin I < 0.012 (0.01-0.034) ng/mL Total Protein (6.3-8.2) g/dL Albumin (3.5-5.0) g/dL Globulin (1.7-4.1) g/dL Albumin/Globulin Ratio (1.0-2.8) Lipase (23-300) U/L Procalcitonin Urine Color Urine Appearance Urine pH (4.5-8.0) Ur Specific [place] (1.000-1.035) Urine Protein (Negative) Urine Glucose (UA) (Negative) g/dL Urine Ketones (NEGATIVE) Urine Occult Blood (Negative) Urine Nitrate (Negative) Urine Bilirubin (NEGATIVE) Urine Urobilinogen (0.2) E.U./dL Ur Leukocyte Esterase (NEGATIVE) Urine RBC (0-5/HPF) Urine WBC (0-5/HPF) Ur Squamous Epith Cells (0-5/HPF) Urine Bacteria (None) Ur Culture Indicated? U Opiates 300ng/mL cut (Negative) Ur Oxycodone Screen (Negative) Urine Methadone Screen (Negative) Ur Barbiturates Screen (Negative) U Tricyclic Antidepress (Negative) Ur Phencyclidine Scrn (Negative) Ur Amphetamines Screen (Negative) U Methamphetamines Scrn (Negative) Ur MDMA Scrn (Ecstasy) (Negative) U Benzodiazepines Scrn (Negative) Urine Cocaine Screen (Negative) U Marijuana (THC) Screen (Negative) SARS-CoV-2 (PCR) Negative (Negative) Influenza A (RT-PCR) Flu a negative (NEGATIVE) Influenza B (RT-PCR) Flu b negative (NEGATIVE) RSV (PCR) Negative (Negative) Point of care testing: Point of Care Testing Test Results Positive Urine Dip Bedside Urine Glucose Negative Bedside Urine Bilirubin - Negative Bedside Urine Ketone - Negative Urine Specific [place] 1.020 Bedside Urine Occult Blood - Negative Bedside Urine pH 6.0 Bedside Urine Protein - Negative Bedside Urine Urobilinogen - Negative Bedside Urine Nitrite - Negative Bedside Urine Leukocytes + 70 Esterase Imaging Data US - OB: Radiologist's Impression: Signed Patient: Maria M Mccarthy MR#: [id number] : 1980 Acct:[id number] Age/Sex: 41 / F Date of Service: 07/16/22 Loc: ED Accession Number: [id number] ?? Procedure: US OB limited Ordering Provider: Juliana Ghosh D.O. PROCEDURE:? US OB LIMITED ? INDICATIONS:? ABDOMINAL PAIN ? OUTSIDE/PRIOR DATING DATA:? Last menstrual period (LMP):? Unknown. LMP-based estimated date of delivery (NABIL):? Unknown. First dating scan (date and location):? 06/22/2022. Estimated date of delivery (NABIL) from first dating scan:? 12/07/2022 The calculations are made using the working NABIL of 12/07/2022. ? TECHNIQUE:? Real-time scanning was performed of the fetus for biophysical profile, with image documentation.? Endovaginal scanning:? Not indicated ? COMPARISON:? None. ? FINDINGS:? ? General:? A single living intrauterine gestation is present.? Presentation:? Transverse with head towards maternal left side. Placenta:? Placental position is anterior, without previa.? ? Amniotic fluid index:? 13.6 cm, normal range is 5-24 cm.? Single deepest vertical pocket is 5.2 cm. heart rate:? 140 beats per minute.? Maternal cervical canal:? 4.7 cm long.? Normal lower limit is 2.5 cm.? Estimated gestational age from initial scan:? 19 weeks, 3 days. ? ? ? IMPRESSION:? 1. Single live intrauterine gestation with fetus in transverse presentation.? heart rate is 140 beats per minute.? Normal amount of amniotic fluid. ? 2.? Placenta location is anterior, no placenta previa.? No evidence of abruption. ? We strive to produce accurate, complete, and clear reports of imaging services. To assist us in improving patient care, this report was composed using standard report templates and voice recognition software. Therefore, it may contain abnormal punctuation, insertions and/or omissions. Occasional wrong-word or sound-alike substitutions may occur. Though we review the report and make efforts to correct it, we do recommend that the report be read carefully in proper context to recognize any text inaccuracies. ? ? ? Dictated by: Morris Neal M.D. on 07/16/2022 at 11:05 ?? MR AB: Radiologist's Impression: Magnetic Resonance Report Signed Patient: Maria M Mccarthy MR#: [id number] : 1980 Acct:[id number] Age/Sex: 41 / F Date of Service: 07/16/22 Loc: ED Accession Number: [id number] ?? Procedure: MR abdomen wo con Ordering Provider: Juliana Ghosh D.O. PROCEDURE:? MR ABDOMEN WO CON ? INDICATIONS:? ab pain hypotension hx gomez ? TECHNIQUE:? Coronal haste, axial haste, axial haste fat sat, sagittal haste, axial in and out of phase, axial diffusion images obtained.? No intravenous contrast administered. ? COMPARISON:? Abdominal ultrasound same day, CT KUB 05/01/2020 ? FINDINGS:? Image quality:? Adequate.? ? The appendix is visualized and appears nondilated measuring approximately 6 mm in diameter.? The wall of the appendix appears thin.? Minimal adjacent fluid present adjacent to the appendix, however trace amounts of free fluid are also visualized in the right paracolic gutter and in the left lower quadrant of the abdomen.? ? Prior cholecystectomy.? Mild prominence of the extrahepatic bile duct without intrahepatic ductal dilation, probably related to post cholecystectomy state and not overtly changed in appearance since the prior CT.? No hydronephrosis bilaterally.? No dilation of the main pancreatic duct.? Unremarkable noncontrast appearance of the liver and spleen.? No adrenal nodules. ? An intrauterine is present, incompletely imaged and not well evaluated on this exam obtained for evaluation of maternal structures. ? No basal pleural effusions.? ? ? IMPRESSION:? The appendix is visualized and appears nondilated without definite wall thickening demonstrated.? A trace amount of fluid is present adjacent to the appendix, however trace volumes of free fluid are also present elsewhere within the right lower quadrant and within the left lower quadrant of the abdomen.? Probability of acute appendicitis is considered low but early acute appendicitis is difficult to fully exclude. ? ? Dictated by: Akil Horn M.D. on 07/16/2022 at 15:18 ? ? ECG Data Interpretation: Normal sinus rhythm rate 60 NJ interval 126 QRS [address] changes low voltage noted MDM Narrative Medical decision making narrative: Patient 41-year-old female currently 19 weeks 3 days presenting today with right upper quadrant pain. History of cholecystectomy. Ultrasound does not show any hydronephrosis appendix is not visualized. Ob ultrasound shows a heart rate in the 140s. Blood work is overall reassuring, no leukocytosis no left shift electrolytes are within normal limits. She is afebrile. Urinalysis does show 1+ leukocytes but no nitrites urine is clear. Possible UTI versus pyelo Patient is reexamined she is still extremely tender. Dr. Ferraro is surgery in ED to see and evaluate patient. 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 Dr. Casillas Ob updated patient's symptoms and test results agrees patient needs imaging can either do CT or MRI MRI is preferred. Patient got MRI of the abdomen which did not show appendicitis although early appendicitis can not be excluded. Trace amount of free fluid without. No obvious source of infection. Initially the patient's blood pressure 117/68, however she did receive 4 mg of morphine and it did drop to 88/50. However within the hour it increased again to 109/66 thought secondary to morphine. Patient received IV fluids. Imaging is ultimately negative however patient has pressure when she returned from MRI [facility], [place] BP 76/41. She is dizzy lightheaded and overall did not feel well. Normal saline bolus ordered. Blood pressure did respond to fluid however it it decreased again. During this time she is not tachycardic she is not hypoxic or febrile. Blood cultures are ordered repeat blood work is ordered. Again there is no leukocytosis lactic acid is negative procalcitonin is negative troponin and EKG are also reassuring. I spoken again with Dr. Casillas OB about persistent hypotension without obvious cause. He agrees with fluid hydration vasopressor support as needed and agrees with transferring. [facility] , Ob updated on patient's symptoms test results she too is unclear about source of hypotension, agrees with current workup and vasopressor support as needed. Unfortunately [facility] does not have any ICU beds currently. Multiple places have been called including [facility], [facility], [place], [facility] Differential diagnosis includes septic shock, hemorrhagic shock, neurogenic shock, obstructive shock, pyelonephritis, pneumonia, pulmonary embolism Due to patient's persistent hypotension and no source decision for CT angio to rule out pulmonary embolism. She does report having a cough but it is chronic she just recently quit smoking when she found out she was but continues to smoke marijuana. She denies any productive cough. Possible pulmonary embolism or pneumonia. We did discuss radiation risk however benefit outweighs risk at this time. Signed out to Dr. Henderson for further 07/16/22 Beatriz: Patient signed out to myself by Dr. Ghosh. Patient has had right upper quadrant pain she states feels similar to when she had gallbladder issues but gallbladders removed she is at 19 weeks and 3 days with no care up to this point the history of PCOS and irregular periods and prior cholecystectomy. Patient has never been tachycardic or febrile but did have hypotension started shortly after morphine but patient's morphine was given at about 10:00 a.m. this morning she is had persistent hypotension into the afternoon and early evening. She received 4 L of NS, Tylenol Zofran and Zosyn in addition. Patient has normal CBC which was repeated hemoglobin changed from 12-11 this is likely delusional after all of her fluids, PT INR negative, sodium 136, potassium 3 9 with a chloride of 110 normal CO2 23 and 22 on repeat normal BUN and normal renal function lactate is negative, glucose has been appropriate troponin is negative, procalcitonin is negative. Patient had urine which shows trace ketones leuk with 1-5 RBCs and 1-5 squamous epithelial and was cultured. Patient had U tox positive for opiates but she had morphine earlier and positive for THC. COVID influenza and RSV are negative. Patient had obstructed abdominal ultrasound which were negative, abdominal MRI which shows normal appendix, nondilated trace fluid adjacent appendix but trace free fluid elsewhere in the left and right lower quadrants, patient has mild prominence of extrahepatic bile ducts without intrahepatic bile duct dilation likely related to post cholecystectomy state no overt change since prior CT no hydro, no dilation of main pancreatic duct and unremarkable appearance of the liver and spleen. Patient also had CT PE no defects to suggest central pulmonary emboli, some left basilar atelectasis, no pericardial effusion and otherwise normal findings except for some left hemidiaphragm elevation. Case had been discussed with OB, Dr. Casillas as well as Dr. Stallworth is who saw the patient in the department from general surgery. She also spoke about transferring as we do not have any ICU beds currently. There was discussion about initiating pressors and central line placement but this was deferred as patient's blood pressure was starting to improve. Patient was seen independently evaluated by myself. OB: Dr. Palafox, is taking over for OB. He is happy to consult he agrees with plan to continue Zosyn does not have other recommendations currently. Teleintensivist: Dr. Mancuso, recommends current plan patient's map is 70 can hold off on pressors discussed if Solu-Cortef would be appropriate he states to hold off unless requiring pressors and then could consider. Reviewed all of her findings he agrees with plan to continue antibiotic this time we have cultures he states could possibly check a cortisol level in the morning although states seems pretty unlikely that he is having adrenal crisis but did note to ask about any chronic steroid use. Patient he recommends at this time to continue with plan for transfer unless she becomes more hemodynamically stable in then could keep here as we only have tell clinical admissions manager and not a true ICU clinical admissions manager in house. Multiple facilities have been contacted already, no bed availability but patient is on the [facility] regional hotline. Recheck on patient. Plan for PICC line for access if needed but patient is sitting up in the bed she states she feels better when she is upright and her blood pressure tends to be better when she is upright than when she is lying flat which makes sense secondary to her . Patient was seated on bed chatting with friend on most recent check, she continues to look improved. Continuing Zofran for possible pyelonephritis and source of discomfort in hypotension. No other clear cause has been found she is had significant workup and discussed with Dr. Angela Burns OBROSIE at [facility] who accepts for transfer at this time. Discussed there was discussion of Levophed but has not been initiated this her map has been appropriate in the 70s although she is still hypotensive at 100 range. We did review the chart she is typically been 130s to 120s in the past and was 117 initially on arrival today. Patient only has urine and blood cultures currently pending. During patient's PICC line placement PICC line was advanced to deeply. Patient had pain or discomfort in her chest. It was withdrawn about 5 or 6 cm symptoms resolved. First chest x-ray had showed that it was advanced to far and repeat x-ray shows it is now in the SVC. Patient did have small amount of ectopy repeat EKG afterwards shows sinus rhythm no acute ST changes compared to earlier EKG from 1725 except for T-wave inversion V1 no other changes or ST elevation depression. Patient states pain improved she still had some persistent discomfort so was given 1 dose of fentanyl and on recheck patient states totally asymptomatic no additional changes. Patient's blood pressure actually went quite elevated but has since returned back to 109 systolic and patient is once again comfortable and able to sit up in bed and conversing easily. <Charo Henderson, DO - Last Filed: 07/17/22 04:16> Lab Data Labs: Lab Results 07/16/22 07/16/22 07/16/22 Range/Units 09:00 09:00 09:00 WBC 8.8 (4.5-11.0) X10^3/uL RBC 4.12 (4.0-5.2) X10^6/uL Hgb 12.3 (12.0-16.0) g/dL Hct 36.0 (36-46) % MCV 87.4 (80-100) fL MCH 29.9 (26-34) PG MCHC 34.2 (30-36) % RDW 13.2 (11.6-14.8) % Plt Count 208 (150-400) X10^3/uL Neut % (Auto) 60.2 (50-75) % Lymph % (Auto) 28.7 (25-40) % [place] % (Auto) 8.3 (3-14) % Eos % (Auto) 2.5 (2-4) % Baso % (Auto) 0.3 (0-2) % Neut # (Auto) 5300 (0267-6500) /uL Lymph # (Auto) 2500 (1173-7964) /uL [place] # (Auto) 700 (0-900) /uL Eos # (Auto) 200 (0-450) /uL Baso # (Auto) 0 (0-100) /uL PT 11.7 (10.1-12.7) SECONDS INR 1.0 (0.9-1.3) Sodium 138 (137-145) mmol/L Potassium 3.6 (3.4-5.1) mmol/L Chloride 106 (98-107) mmol/L Carbon Dioxide 23 (22-32) mmol/L BUN 13 (7-17) mg/dL Creatinine 0.56 (0.52-1.04) mg/dL Estimated GFR > 60 (>60) mL/min BUN/Creatinine Ratio 23.2 H (6-22) Glucose 87 (70-100) mg/dL Lactate Calcium 8.6 (8.4-10.2) mg/dL Total Bilirubin 0.5 (0.2-1.3) mg/dL AST 25 (14-36) IU/L ALT 22 (<35) IU/L Alkaline Phosphatase 64 (38-126) U/L Total Creatine Kinase (30-135) U/L CK-MB (CK-2) CK-MB (CK-2) Rel Index Troponin I (0.01-0.034) ng/mL Total Protein 6.8 (6.3-8.2) g/dL Albumin 3.6 (3.5-5.0) g/dL Globulin 3.2 (1.7-4.1) g/dL Albumin/Globulin Ratio 1.1 (1.0-2.8) Lipase 75 (23-300) U/L Procalcitonin Urine Color Urine Appearance Urine pH (4.5-8.0) Ur Specific [place] (1.000-1.035) Urine Protein (Negative) Urine Glucose (UA) (Negative) g/dL Urine Ketones (NEGATIVE) Urine Occult Blood (Negative) Urine Nitrate (Negative) Urine Bilirubin (NEGATIVE) Urine Urobilinogen (0.2) E.U./dL Ur Leukocyte Esterase (NEGATIVE) Urine RBC (0-5/HPF) Urine WBC (0-5/HPF) Ur Squamous Epith Cells (0-5/HPF) Urine Bacteria (None) Ur Culture Indicated? U Opiates 300ng/mL cut (Negative) Ur Oxycodone Screen (Negative) Urine Methadone Screen (Negative) Ur Barbiturates Screen (Negative) U Tricyclic Antidepress (Negative) Ur Phencyclidine Scrn (Negative) Ur Amphetamines Screen (Negative) U Methamphetamines Scrn (Negative) Ur MDMA Scrn (Ecstasy) (Negative) U Benzodiazepines Scrn (Negative) Urine Cocaine Screen (Negative) U Marijuana (THC) Screen (Negative) SARS-CoV-2 (PCR) (Negative) Influenza A (RT-PCR) (NEGATIVE) Influenza B (RT-PCR) (NEGATIVE) RSV (PCR) (Negative) 07/16/22 07/16/22 07/16/22 Range/Units 09:00 09:00 11:11 WBC (4.5-11.0) X10^3/uL RBC (4.0-5.2) X10^6/uL Hgb (12.0-16.0) g/dL Hct (36-46) % MCV (80-100) fL MCH (26-34) PG MCHC (30-36) % RDW (11.6-14.8) % Plt Count (150-400) X10^3/uL Neut % (Auto) (50-75) % Lymph % (Auto) (25-40) % [place] % (Auto) (3-14) % Eos % (Auto) (2-4) % Baso % (Auto) (0-2) % Neut # (Auto) (5021-7781) /uL Lymph # (Auto) (0203-3468) /uL [place] # (Auto) (0-900) /uL Eos # (Auto) (0-450) /uL Baso # (Auto) (0-100) /uL PT (10.1-12.7) SECONDS INR (0.9-1.3) Sodium (137-145) mmol/L Potassium (3.4-5.1) mmol/L Chloride (98-107) mmol/L Carbon Dioxide (22-32) mmol/L BUN (7-17) mg/dL Creatinine (0.52-1.04) mg/dL Estimated GFR (>60) mL/min BUN/Creatinine Ratio (6-22) Glucose (70-100) mg/dL Lactate Cancelled Calcium (8.4-10.2) mg/dL Total Bilirubin (0.2-1.3) mg/dL AST (14-36) IU/L ALT (<35) IU/L Alkaline Phosphatase (38-126) U/L Total Creatine Kinase (30-135) U/L CK-MB (CK-2) CK-MB (CK-2) Rel Index Troponin I (0.01-0.034) ng/mL Total Protein (6.3-8.2) g/dL Albumin (3.5-5.0) g/dL Globulin (1.7-4.1) g/dL Albumin/Globulin Ratio (1.0-2.8) Lipase (23-300) U/L Procalcitonin Cancelled Urine Color Yellow Urine Appearance Clear Urine pH 5.0 (4.5-8.0) Ur Specific [place] 1.020 (1.000-1.035) Urine Protein Negative (Negative) Urine Glucose (UA) Negative (Negative) g/dL Urine Ketones Trace H (NEGATIVE) Urine Occult Blood Negative (Negative) Urine Nitrate Negative (Negative) Urine Bilirubin Negative (NEGATIVE) Urine Urobilinogen 0.2 (0.2) E.U./dL Ur Leukocyte Esterase 1+ H (NEGATIVE) Urine RBC None seen (0-5/HPF) Urine WBC 1-5/hpf (0-5/HPF) Ur Squamous Epith Cells 1-5 /hpf (0-5/HPF) Urine Bacteria None seen (None) Ur Culture Indicated? Specimen cultured U Opiates 300ng/mL cut (Negative) Ur Oxycodone Screen (Negative) Urine Methadone Screen (Negative) Ur Barbiturates Screen (Negative) U Tricyclic Antidepress (Negative) Ur Phencyclidine Scrn (Negative) Ur Amphetamines Screen (Negative) U Methamphetamines Scrn (Negative) Ur MDMA Scrn (Ecstasy) (Negative) U Benzodiazepines Scrn (Negative) Urine Cocaine Screen (Negative) U Marijuana (THC) Screen (Negative) SARS-CoV-2 (PCR) (Negative) Influenza A (RT-PCR) (NEGATIVE) Influenza B (RT-PCR) (NEGATIVE) RSV (PCR) (Negative) 07/16/22 07/16/22 07/16/22 Range/Units 11:11 15:52 16:15 WBC (4.5-11.0) X10^3/uL RBC (4.0-5.2) X10^6/uL Hgb (12.0-16.0) g/dL Hct (36-46) % MCV (80-100) fL MCH (26-34) PG MCHC (30-36) % RDW (11.6-14.8) % Plt Count (150-400) X10^3/uL Neut % (Auto) (50-75) % Lymph % (Auto) (25-40) % [place] % (Auto) (3-14) % Eos % (Auto) (2-4) % Baso % (Auto) (0-2) % Neut # (Auto) (1812-5839) /uL Lymph # (Auto) (8999-1234) /uL [place] # (Auto) (0-900) /uL Eos # (Auto) (0-450) /uL Baso # (Auto) (0-100) /uL PT (10.1-12.7) SECONDS INR (0.9-1.3) Sodium (137-145) mmol/L Potassium (3.4-5.1) mmol/L Chloride (98-107) mmol/L Carbon Dioxide (22-32) mmol/L BUN (7-17) mg/dL Creatinine (0.52-1.04) mg/dL Estimated GFR (>60) mL/min BUN/Creatinine Ratio (6-22) Glucose (70-100) mg/dL Lactate 0.7 Calcium (8.4-10.2) mg/dL Total Bilirubin (0.2-1.3) mg/dL AST (14-36) IU/L ALT (<35) IU/L Alkaline Phosphatase (38-126) U/L Total Creatine Kinase (30-135) U/L CK-MB (CK-2) CK-MB (CK-2) Rel Index Troponin I (0.01-0.034) ng/mL Total Protein (6.3-8.2) g/dL Albumin (3.5-5.0) g/dL Globulin (1.7-4.1) g/dL Albumin/Globulin Ratio (1.0-2.8) Lipase (23-300) U/L Procalcitonin Urine Color Urine Appearance Urine pH (4.5-8.0) Ur Specific [place] (1.000-1.035) Urine Protein (Negative) Urine Glucose (UA) (Negative) g/dL Urine Ketones (NEGATIVE) Urine Occult Blood (Negative) Urine Nitrate (Negative) Urine Bilirubin (NEGATIVE) Urine Urobilinogen (0.2) E.U./dL Ur Leukocyte Esterase (NEGATIVE) Urine RBC (0-5/HPF) Urine WBC (0-5/HPF) Ur Squamous Epith Cells (0-5/HPF) Urine Bacteria (None) Ur Culture Indicated? U Opiates 300ng/mL cut Positive H (Negative) Ur Oxycodone Screen Negative (Negative) Urine Methadone Screen Negative (Negative) Ur Barbiturates Screen Negative (Negative) U Tricyclic Antidepress Negative (Negative) Ur Phencyclidine Scrn Negative (Negative) Ur Amphetamines Screen Negative (Negative) U Methamphetamines Scrn Negative (Negative) Ur MDMA Scrn (Ecstasy) Negative (Negative) U Benzodiazepines Scrn Negative (Negative) Urine Cocaine Screen Negative (Negative) U Marijuana (THC) Screen Positive H (Negative) SARS-CoV-2 (PCR) Negative (Negative) Influenza A (RT-PCR) (NEGATIVE) Influenza B (RT-PCR) (NEGATIVE) RSV (PCR) (Negative) 07/16/22 07/16/22 07/16/22 Range/Units 16:28 16:28 16:28 WBC 8.2 (4.5-11.0) X10^3/uL RBC 3.86 L (4.0-5.2) X10^6/uL Hgb 11.7 L (12.0-16.0) g/dL Hct 34.1 L (36-46) % MCV 88.3 (80-100) fL MCH 30.4 (26-34) PG MCHC 34.4 (30-36) % RDW 13.4 (11.6-14.8) % Plt Count 188 (150-400) X10^3/uL Neut % (Auto) 55.9 (50-75) % Lymph % (Auto) 33.2 (25-40) % [place] % (Auto) 8.3 (3-14) % Eos % (Auto) 2.2 (2-4) % Baso % (Auto) 0.4 (0-2) % Neut # (Auto) 4600 (3358-7667) /uL Lymph # (Auto) 2700 (3202-7353) /uL [place] # (Auto) 700 (0-900) /uL Eos # (Auto) 200 (0-450) /uL Baso # (Auto) 0 (0-100) /uL PT (10.1-12.7) SECONDS INR (0.9-1.3) Sodium 136 L (137-145) mmol/L Potassium 3.9 (3.4-5.1) mmol/L Chloride 110 H (98-107) mmol/L Carbon Dioxide 22 (22-32) mmol/L BUN 9 (7-17) mg/dL Creatinine 0.50 L (0.52-1.04) mg/dL Estimated GFR > 60 (>60) mL/min BUN/Creatinine Ratio 18.0 (6-22) Glucose 79 (70-100) mg/dL Lactate Calcium 7.7 L (8.4-10.2) mg/dL Total Bilirubin 0.5 (0.2-1.3) mg/dL AST 25 (14-36) IU/L ALT 20 (<35) IU/L Alkaline Phosphatase 56 (38-126) U/L Total Creatine Kinase (30-135) U/L CK-MB (CK-2) CK-MB (CK-2) Rel Index Troponin I (0.01-0.034) ng/mL Total Protein 6.0 L (6.3-8.2) g/dL Albumin 3.2 L (3.5-5.0) g/dL Globulin 2.8 (1.7-4.1) g/dL Albumin/Globulin Ratio 1.1 (1.0-2.8) Lipase (23-300) U/L Procalcitonin 0.04 Urine Color Urine Appearance Urine pH (4.5-8.0) Ur Specific [place] (1.000-1.035) Urine Protein (Negative) Urine Glucose (UA) (Negative) g/dL Urine Ketones (NEGATIVE) Urine Occult Blood (Negative) Urine Nitrate (Negative) Urine Bilirubin (NEGATIVE) Urine Urobilinogen (0.2) E.U./dL Ur Leukocyte Esterase (NEGATIVE) Urine RBC (0-5/HPF) Urine WBC (0-5/HPF) Ur Squamous Epith Cells (0-5/HPF) Urine Bacteria (None) Ur Culture Indicated? U Opiates 300ng/mL cut (Negative) Ur Oxycodone Screen (Negative) Urine Methadone Screen (Negative) Ur Barbiturates Screen (Negative) U Tricyclic Antidepress (Negative) Ur Phencyclidine Scrn (Negative) Ur Amphetamines Screen (Negative) U Methamphetamines Scrn (Negative) Ur MDMA Scrn (Ecstasy) (Negative) U Benzodiazepines Scrn (Negative) Urine Cocaine Screen (Negative) U Marijuana (THC) Screen (Negative) SARS-CoV-2 (PCR) (Negative) Influenza A (RT-PCR) (NEGATIVE) Influenza B (RT-PCR) (NEGATIVE) RSV (PCR) (Negative) 07/16/22 07/16/22 Range/Units 16:28 16:41 WBC (4.5-11.0) X10^3/uL RBC (4.0-5.2) X10^6/uL Hgb (12.0-16.0) g/dL Hct (36-46) % MCV (80-100) fL MCH (26-34) PG MCHC (30-36) % RDW (11.6-14.8) % Plt Count (150-400) X10^3/uL Neut % (Auto) (50-75) % Lymph % (Auto) (25-40) % [place] % (Auto) (3-14) % Eos % (Auto) (2-4) % Baso % (Auto) (0-2) % Neut # (Auto) (3491-5087) /uL Lymph # (Auto) (9606-1678) /uL [place] # (Auto) (0-900) /uL Eos # (Auto) (0-450) /uL Baso # (Auto) (0-100) /uL PT (10.1-12.7) SECONDS INR (0.9-1.3) Sodium (137-145) mmol/L Potassium (3.4-5.1) mmol/L Chloride (98-107) mmol/L Carbon Dioxide (22-32) mmol/L BUN (7-17) mg/dL Creatinine (0.52-1.04) mg/dL Estimated GFR (>60) mL/min BUN/Creatinine Ratio (6-22) Glucose (70-100) mg/dL Lactate Calcium (8.4-10.2) mg/dL Total Bilirubin (0.2-1.3) mg/dL AST (14-36) IU/L ALT (<35) IU/L Alkaline Phosphatase (38-126) U/L Total Creatine Kinase 49 (30-135) U/L CK-MB (CK-2) TNP CK-MB (CK-2) Rel Index TNP Troponin I < 0.012 (0.01-0.034) ng/mL Total Protein (6.3-8.2) g/dL Albumin (3.5-5.0) g/dL Globulin (1.7-4.1) g/dL Albumin/Globulin Ratio (1.0-2.8) Lipase (23-300) U/L Procalcitonin Urine Color Urine Appearance Urine pH (4.5-8.0) Ur Specific [place] (1.000-1.035) Urine Protein (Negative) Urine Glucose (UA) (Negative) g/dL Urine Ketones (NEGATIVE) Urine Occult Blood (Negative) Urine Nitrate (Negative) Urine Bilirubin (NEGATIVE) Urine Urobilinogen (0.2) E.U./dL Ur Leukocyte Esterase (NEGATIVE) Urine RBC (0-5/HPF) Urine WBC (0-5/HPF) Ur Squamous Epith Cells (0-5/HPF) Urine Bacteria (None) Ur Culture Indicated? U Opiates 300ng/mL cut (Negative) Ur Oxycodone Screen (Negative) Urine Methadone Screen (Negative) Ur Barbiturates Screen (Negative) U Tricyclic Antidepress (Negative) Ur Phencyclidine Scrn (Negative) Ur Amphetamines Screen (Negative) U Methamphetamines Scrn (Negative) Ur MDMA Scrn (Ecstasy) (Negative) U Benzodiazepines Scrn (Negative) Urine Cocaine Screen (Negative) U Marijuana (THC) Screen (Negative) SARS-CoV-2 (PCR) Negative (Negative) Influenza A (RT-PCR) Flu a negative (NEGATIVE) Influenza B (RT-PCR) Flu b negative (NEGATIVE) RSV (PCR) Negative (Negative) Point of care testing: Point of Care Testing Test Results Positive Urine Dip Bedside Urine Glucose Negative Bedside Urine Bilirubin - Negative Bedside Urine Ketone - Negative Urine Specific [place] 1.020 Bedside Urine Occult Blood - Negative Bedside Urine pH 6.0 Bedside Urine Protein - Negative Bedside Urine Urobilinogen - Negative Bedside Urine Nitrite - Negative Bedside Urine Leukocytes + 70 Esterase ECG Data Interpretation: Normal sinus rhythm rate 60 NJ interval 126 QRS [address] changes low voltage noted EKG 2. Sinus rhythm rate of 60 9p are 124 QRS is [address] QTC [address] acute ST elevation, T-wave inverted in V1 was more flat on initial EKG. No other changes appreciated. MDM Narrative Medical decision making narrative: Patient 41-year-old female currently 19 weeks 3 days presenting today with right upper quadrant pain. History of cholecystectomy. Ultrasound does not show any hydronephrosis appendix is not visualized. Ob ultrasound shows a heart rate in the 140s. Blood work is overall reassuring, no leukocytosis no left shift electrolytes are within normal limits. She is afebrile. Urinalysis does show 1+ leukocytes but no nitrites urine is clear. Patient is reexamined she is still extremely tender. Dr. Ferraro is surgery in ED to see and evaluate patient. 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 Dr. Casillas Ob updated patient's symptoms and test results agrees patient needs imaging can either do CT or MRI MRI is preferred. Patient got MRI of the abdomen which did not show appendicitis although early appendicitis can not be excluded. Trace amount of free fluid without. No obvious source of infection. Initially the patient's blood pressure 117/68, however she did receive 4 mg of morphine and it did drop to 88/50. However within the hour it increased again to 0 6/66 thought secondary dairy to be to morphine. Patient received IV fluids. Imaging is ultimately negative however patient has pressure when she returned from MRI 76/41. She is dizzy lightheaded and overall did not feel well. Normal saline bolus ordered. Blood pressure did respond to fluid however it it decreased again. During this time she is not tachycardic she is not hypoxic or febrile. Blood cultures are ordered repeat blood work is ordered. Again there is no leukocytosis lactic acid is negative procalcitonin is negative troponin and EKG are also reassuring. I spoken again with Dr. Casillas OB about persistent hypotension without obvious cause. He agrees with fluid hydration vasopressor support as needed and agrees with transferring. Jim Alvarenga, Ob updated on patient's symptoms test results she too is unclear about source of hypotension, agrees with current workup and vasopressor support as needed. Unfortunately [facility] does not have any ICU beds currently. Multiple places have been called including [facility], [facility], [place], [facility] Differential diagnosis includes septic shock, hemorrhagic shock, neurogenic shock, obstructive shock, pyelonephritis, pneumonia, pulmonary embolism Due to patient's persistent hypotension and no source decision for CT angio to rule out pulmonary embolism. She does report having a cough but it is chronic she just recently quit smoking when she found out she was but continues to smoke marijuana. She denies any productive cough. Possible pulmonary embolism or pneumonia. We did discuss radiation risk however benefit outweighs risk at this time. 07/16/22 Mank: Patient signed out to myself by Dr. Ghosh. Patient has had right upper quadrant pain she states feels similar to when she had gallbladder issues but gallbladders removed she is at 19 weeks and 3 days with no care up to this point the history of PCOS and irregular periods and prior cholecystectomy. Patient has never been tachycardic or febrile but did have hypotension started shortly after morphine but patient's morphine was given at about 10:00 a.m. this morning she is had persistent hypotension into the afternoon and early evening. She received 4 L of NS, Tylenol Zofran and Zosyn in addition. Patient has normal CBC which was repeated hemoglobin changed from 12-11 this is likely delusional after all of her fluids, PT INR negative, sodium 136, potassium 3 9 with a chloride of 110 normal CO2 23 and 22 on repeat normal BUN and normal renal function lactate is negative, glucose has been appropriate troponin is negative, procalcitonin is negative. Patient had urine which shows trace ketones leuk with 1-5 RBCs and 1-5 squamous epithelial and was cultured. Patient had U tox positive for opiates but she had morphine earlier and positive for THC. COVID influenza and RSV are negative. Patient had obstructed abdominal ultrasound which were negative, abdominal MRI which shows normal appendix, nondilated trace fluid adjacent appendix but trace free fluid elsewhere in the left and right lower quadrants, patient has mild prominence of extrahepatic bile ducts without intrahepatic bile duct dilation likely related to post cholecystectomy state no overt change since prior CT no hydro, no dilation of main pancreatic duct and unremarkable appearance of the liver and spleen. Patient also had CT PE no defects to suggest central pulmonary emboli, some left basilar atelectasis, no pericardial effusion and otherwise normal findings except for some left hemidiaphragm elevation. Case had been discussed with OB, Dr. Casillas as well as Dr. Stallworth is who saw the patient in the department from general surgery. She also spoke about transferring as we do not have any ICU beds currently. There was discussion about initiating pressors and central line placement but this was deferred as patient's blood pressure was starting to improve. Patient was seen independently evaluated by myself. OB: Dr. Palafox, is taking over for OB. He is happy to consult he agrees with plan to continue Zosyn does not have other recommendations currently. Teleintensivist: Dr. Mancuso, recommends current plan patient's map is 70 can hold off on pressors discussed if Solu-Cortef would be appropriate he states to hold off unless requiring pressors and then could consider. Reviewed all of her findings he agrees with plan to continue antibiotic this time we have cultures he states could possibly check a cortisol level in the morning although states seems pretty unlikely that he is having adrenal crisis but did note to ask about any chronic steroid use. Patient he recommends at this time to continue with plan for transfer unless she becomes more hemodynamically stable in then could keep here as we only have tell clinical admissions manager and not a true ICU clinical admissions manager in house. Multiple facilities have been contacted already, no bed availability but patient is on the [facility] regional hotline. Recheck on patient. Plan for PICC line for access if needed but patient is sitting up in the bed she states she feels better when she is upright and her blood pressure tends to be better when she is upright than when she is lying flat which makes sense secondary to her . Patient was seated on bed chatting with friend on most recent check, she continues to look improved. Continuing Zofran for possible pyelonephritis and source of discomfort in hypotension. No other clear cause has been found she is had significant workup and discussed with RAYA Steve at [facility] who accepts for transfer at this time. Discussed there was discussion of Levophed but has not been initiated this her map has been appropriate in the 70s although she is still hypotensive at 100 range. We did review the chart she is typically been 130s to 120s in the past and was 117 initially on arrival today. Patient only has urine and blood cultures currently pending. During patient's PICC line placement PICC line was advanced to deeply. Patient had pain or discomfort in her chest. It was withdrawn about 5 or 6 cm symptoms resolved. First chest x-ray had showed that it was advanced to far and repeat x-ray shows it is now in the SVC. Patient did have small amount of ectopy repeat EKG afterwards shows sinus rhythm no acute ST changes compared to earlier EKG from 1725 except for T-wave inversion V1 no other changes or ST elevation depression. Patient states pain improved she still had some persistent discomfort so was given 1 dose of fentanyl and on recheck patient states totally asymptomatic no additional changes. Patient's blood pressure actually went quite elevated but has since returned back to 109 systolic and patient is once again comfortable and able to sit up in bed and conversing easily. <Charo Henderson, DO - Last Filed: 07/17/22 04:16> Critical Care Time Critical Care Time: Yes Total Critical Care Time: 45 Attestation: The high probability of a clinically significant, sudden or life threatening deterioration of the [cardiac, pulm] system(s) required my full and direct attention, intervention and personal management. The aggregate critical care time was [] minutes. This time is in addition to time spent performing reported procedures but includes the following: [x] Data Review and interpretation [x] Patient assessment and monitoring of vital signs [x] Documentation [x] Medication orders and management Discharge Plan Departure [facility] Clinical Impression: Hypotension, Prescriptions: No Action Classic 28 mg iron- 800 mcg tablet 1 tab PO DAILY Qty: 90 3RF Referrals: Justyna Beltran MD [Primary Care Provider] -
[2022-07-16 09:26] LABS: Alanine Aminotransferase 22 IU/L (<35); Albumin 3.6 g/dL (3.5-5.0); Albumin Globulin Ratio 1.1 (1.0-2.8); Alkaline Phosphatase 64 U/L (38-126); Aspartate Aminotransferase 25 IU/L (14-36); BUN Creatinine Ratio 23.2 (6-22); Bilirubin Total 0.5 mg/dL (0.2-1.3); Blood Urea Nitrogen 13 mg/dL (7-17); Calcium 8.6 mg/dL (8.4-10.2); Carbon Dioxide 23 mmol/L (22-32); Chloride 106 mmol/L (98-107); Estimated Glomerular Filt Rate > 60 mL/min (>60); Globulin 3.2 g/dL (1.7-4.1); Glucose 87 mg/dL (70-100); HEMOLYSIS < 15 (0-50); Lipase 75 U/L (23-300); Potassium 3.6 mmol/L (3.4-5.1); Sodium 138 mmol/L (137-145); Total Protein 6.8 g/dL (6.3-8.2)
[2022-07-16] MEDS: MORPHINE 2 MG/ML INJ IV (10:05)
[2022-07-16] MEDS: ONDANSETRON 4 MG/2 ML INJ IV ×2 (10:05→17:47)
[2022-07-16] MEDS: SODIUM CHLORIDE 0.9% 1,000 ML 1000 ML IV ×3 (10:06→14:26)
[2022-07-16 11:29] LABS: Appearance Urine UA CLEAR; Bilirubin Urine UA NEGATIVE (NEGATIVE); Color Urine UA YELLOW; Glucose Urine UA NEGATIVE (Negative); Ketones Urine UA TRACE (NEGATIVE); Leukocyte Esterase Urine UA 1+ (NEGATIVE); Nitrite Urine UA NEGATIVE (Negative); Occult Blood Urine UA NEGATIVE (Negative); Protein Urine UA NEGATIVE (Negative); Urobilinogen Urine UA 0.2 E.U./dL (0.2)
[2022-07-16] MEDS: ACETAMINOPHEN 325 MG TABLET 975 MG PO (11:29)
[2022-07-16 11:34] LABS: Bacteria Urine None Seen; Culture Indicated Urine Specimen Cultured; RBC Urine None Seen (0-5/HPF); Squamous Epithelial Cell Urine 1-5 /HPF (0-5/HPF); WBC Urine 1-5/HPF (0-5/HPF)
--- NOTE | 2022-07-16 13:12 | PM.CN ---
History of Present Illness Consult details Date Patient Seen: 07/16/22 Time Patient Seen: 12:00 Chief complaint: pain were gallbladder was/ 19 weeks Reason for consult: Abdominal pain Requesting provider: Juliana Ghosh Narrative: Mrs. Mccarthy is a 41-year-old lady who is 19 weeks . She relates that she is been trying to get for about 5 years since she had her last daughter. She currently does not have an OB because she is tried to get into [facility] and they are full and so she was referred to [facility] but she has not gotten in yet. She comes to the emergency room today because she has been having right-sided abdominal pain for the last 3 days. She says that she noticed it gradually but has not noticed anything that specifically seems to alleviate or aggravate the pain. It does not seem to be related to food or eating. It does get better or worse over the day and she thinks that maybe it is worse after she is been busy or working or moving her body around. Maybe it is better with some rubbing. At first she thought it is just pain with but now over the last 3 days and especially today the pain is getting worse. She complains of nausea with this and she thinks that the nausea is worse today also. She does have a normal appetite and is hungry and eating still. So far the pain has not kept her up at night or woken her up at night. She says she is never had pain like this before except for when she had acute cholecystitis she said the pain felt similar. She has had a cholecystectomy. She denies fever or chills and otherwise complains of fatigue. Meds Home Medications and Allergies Home Medications Medication Instructions Recorded Confirmed Type methocarbamol 500 mg tablet See Rx Instructions PO Q6-8H PRN 05/12/21 06/13/22 Rx muscle spasm #20 tabs hydroxyzine HCl 50 mg tablet 50 mg PO BID PRN itching #20 tabs 11/20/21 06/13/22 Rx azithromycin 250 mg tablet See Rx Instructions PO .COMPLEX #6 05/20/22 06/13/22 Rx tabs methylprednisolone 4 mg tablets in See Rx Instructions PO PER PKG DIR 05/20/22 06/13/22 Rx a dose pack (Medrol (Ki)) #21 ea loratadine 10 mg capsule (Claritin 10 mg PO DAILY congestion #30 caps 06/13/22 06/13/22 Rx Liqui-Gel) vits no.126-ferrous fum 1 tab PO DAILY #90 tabs 06/14/22 Rx 28 mg iron-folic acid 800 mcg tablet (Classic ) Allergies Allergy/AdvReac Type Severity Reaction Status Date / Time morphine Allergy Intermediate pt felt Verified 07/16/22 09:00 like she was on fire paper tape Allergy Uncoded 07/16/22 09:00 plastic tape Allergy Uncoded 07/16/22 09:00 Exam Vital Signs (past 8 hours): - 07/16/22 09:00 07/16/22 08:58 07/16/22 08:58 Temperature 97.4 F L Pulse Rate 70 70 Respiratory Rate 20 Blood Pressure 117/68 117/68 Pulse Oximetry 99 99 Oxygen Delivery Method Room Air 07/16/22 09:00 07/16/22 09:30 07/16/22 10:00 Temperature Pulse Rate 66 64 59 L Respiratory Rate Blood Pressure Pulse Oximetry 99 99 99 Oxygen Delivery Method 07/16/22 10:08 07/16/22 10:08 07/16/22 10:34 Temperature Pulse Rate 66 Respiratory Rate Blood Pressure 116/72 90/51 L Pulse Oximetry 100 Oxygen Delivery Method 07/16/22 10:30 07/16/22 10:30 07/16/22 10:33 Temperature Pulse Rate 59 L Respiratory Rate Blood Pressure 88/50 L 90/51 L Pulse Oximetry 99 Oxygen Delivery Method 07/16/22 10:33 07/16/22 11:00 07/16/22 11:00 Temperature Pulse Rate 64 69 Respiratory Rate Blood Pressure 93/52 L Pulse Oximetry 100 100 Oxygen Delivery Method 07/16/22 11:30 07/16/22 11:30 07/16/22 12:00 Temperature Pulse Rate 60 Respiratory Rate 18 Blood Pressure 109/66 90/60 Pulse Oximetry 100 Oxygen Delivery Method 07/16/22 12:00 07/16/22 12:30 07/16/22 12:31 Temperature Pulse Rate 67 72 Respiratory Rate Blood Pressure 108/56 L Pulse Oximetry 100 100 Oxygen Delivery Method 07/16/22 12:31 Temperature Pulse Rate 65 Respiratory Rate Blood Pressure Pulse Oximetry 100 Oxygen Delivery Method Oxygen Delivery Method Room Air Const General: cooperative and comfortable Nutritional Appearance: obese HENMT Head: normal to inspection Eyes Sclera: sclerae normal Resp Effort & Inspection: normal respiratory effort and able to speak in complete sentences GI Palpation: soft and tender (She has marked tenderness on the right lower quadrant.) Objective Labs 07/16/22 09:00 07/16/22 09:00 Labs: Laboratory Results - last 24 hr 07/16/22 07/16/22 07/16/22 09:00 09:00 09:00 WBC 8.8 RBC 4.12 Hgb 12.3 Hct 36.0 MCV 87.4 MCH 29.9 MCHC 34.2 RDW 13.2 Plt Count 208 Neut % (Auto) 60.2 Lymph % (Auto) 28.7 [place] % (Auto) 8.3 Eos % (Auto) 2.5 Baso % (Auto) 0.3 Neut # (Auto) 5300 Lymph # (Auto) 2500 [place] # (Auto) 700 Eos # (Auto) 200 Baso # (Auto) 0 PT 11.7 INR 1.0 Sodium 138 Potassium 3.6 Chloride 106 Carbon Dioxide 23 BUN 13 Creatinine 0.56 Estimated GFR > 60 BUN/Creatinine Ratio 23.2 H Glucose 87 Calcium 8.6 Total Bilirubin 0.5 AST 25 ALT 22 Alkaline Phosphatase 64 Total Protein 6.8 Albumin 3.6 Globulin 3.2 Albumin/Globulin Ratio 1.1 Lipase 75 Urine Color Urine Appearance Urine pH Ur Specific Stevenson Urine Protein Urine Glucose (UA) Urine Ketones Urine Occult Blood Urine Nitrate Urine Bilirubin Urine Urobilinogen Ur Leukocyte Esterase Urine RBC Urine WBC Ur Squamous Epith Cells Urine Bacteria Ur Culture Indicated? 07/16/22 11:11 WBC RBC Hgb Hct MCV MCH MCHC RDW Plt Count Neut % (Auto) Lymph % (Auto) [place] % (Auto) Eos % (Auto) Baso % (Auto) Neut # (Auto) Lymph # (Auto) [place] # (Auto) Eos # (Auto) Baso # (Auto) PT INR Sodium Potassium Chloride Carbon Dioxide BUN Creatinine Estimated GFR BUN/Creatinine Ratio Glucose Calcium Total Bilirubin AST ALT Alkaline Phosphatase Total Protein Albumin Globulin Albumin/Globulin Ratio Lipase Urine Color Yellow Urine Appearance Clear Urine pH 5.0 Ur Specific Stevenson 1.020 Urine Protein Negative Urine Glucose (UA) Negative Urine Ketones Trace H Urine Occult Blood Negative Urine Nitrate Negative Urine Bilirubin Negative Urine Urobilinogen 0.2 Ur Leukocyte Esterase 1+ H Urine RBC None seen Urine WBC 1-5/hpf Ur Squamous Epith Cells 1-5 /hpf Urine Bacteria None seen Ur Culture Indicated? Specimen cultured [facility] Medical History History of Polycystic ovaries (10/06/15) Viral URI with cough Tobacco & Substance Use Smoking Status: Former smoker Assessment & Plan Assessment and plan (1) Right lower quadrant abdominal pain affecting in second trimester: Status: Acute Assessment & Plan narrative: Based on the relatively acute and increasing intensity of the pain on her history as well as the degree of tenderness on physical exam I do have a decent degree of suspicion for acute appendicitis. I think that further imaging should be obtained. I have discussed my impression with Dr. Ghosh. As far as which type of imaging to obtain I suggested that we request the assistance of an department head in choosing an exam. I would be in favor of further vaginal ultrasound and sometimes this can show appendicitis especially if obesity is making the abdominal ultrasound difficult but an MRI or a CT scan would be the more sensitive tests. As far as risks benefits and alternatives between the [address] scan in the setting of 19 weeks' gestation I would defer that discussion to the department head. I will follow please contact me with any further concerns or questions Time Spent With Patient Critical Care time: I spent a total of [] minutes of critical care time on this patient's care today; this time is exclusive of procedural time.
--- NOTE | 2022-07-16 13:17 | DI.MRI.S_ITS ---
PROCEDURE: MR ABDOMEN WO CON INDICATIONS: ab pain hypotension hx gomez TECHNIQUE: Coronal haste, axial haste, axial haste fat sat, sagittal haste, axial in and out of phase, axial diffusion images obtained. No intravenous contrast administered. COMPARISON: Abdominal ultrasound same day, CT KUB 05/01/2020 FINDINGS: Image quality: Adequate. The appendix is visualized and appears nondilated measuring approximately 6 mm in diameter. The wall of the appendix appears thin. Minimal adjacent fluid present adjacent to the appendix, however trace amounts of free fluid are also visualized in the right paracolic gutter and in the left lower quadrant of the abdomen. Prior cholecystectomy. Mild prominence of the extrahepatic bile duct without intrahepatic ductal dilation, probably related to post cholecystectomy state and not overtly changed in appearance since the prior CT. No hydronephrosis bilaterally. No dilation of the main pancreatic duct. Unremarkable noncontrast appearance of the liver and spleen. No adrenal nodules. An intrauterine is present, incompletely imaged and not well evaluated on this exam obtained for evaluation of maternal structures. No basal pleural effusions. IMPRESSION: The appendix is visualized and appears nondilated without definite wall thickening demonstrated. A trace amount of fluid is present adjacent to the appendix, however trace volumes of free fluid are also present elsewhere within the right lower quadrant and within the left lower quadrant of the abdomen. Probability of acute appendicitis is considered low but early acute appendicitis is difficult to fully exclude. Dictated by: Akil Horn M.D. on 07/16/2022 at 15:18 Approved by: Akil Horn M.D. on 07/16/2022 at 15:41
--- NOTE | 2022-07-16 16:05 | PC.NURSE ---
1557: Provider aware of vitals.
[2022-07-16] MEDS: LACTATED RINGERS 1,000 ML 1000 ML IV (16:11)
[2022-07-16] MEDS: PIPERACILLIN/TAZO 4.5 GM in SODIUM CHLORIDE 0.9% 100 ML IV ×2 (16:14→23:42)
[2022-07-16 16:41] LABS: Add Manual Diff / Slide Review NO; Basophils Absolute Auto 0 /uL (0-100); Basophils Percent Auto 0.4 % (0-2); Eosinophils Absolute Auto 200 /uL (0-450); Eosinophils Percent Auto 2.2 % (2-4); Hematocrit 34.1 % (36-46); Hemoglobin 11.7 g/dL (12.0-16.0); Lymphocytes Absolute Auto 2700 /uL (1100-4500); Lymphocytes Percent Auto 33.2 % (25-40); Mean Corpuscular HGB Conc 34.4 % (30-36); Mean Corpuscular Hemoglobin 30.4 PG (26-34); Mean Corpuscular Volume 88.3 fL (80-100); Monocytes Absolute Auto 700 /uL (0-900); Monocytes Percent Auto 8.3 % (3-14); Neutrophils Absolute Auto 4600 /uL (1500-7000); Neutrophils Percent Auto 55.9 % (50-75); Platelet Count 188 X10^3/uL (150-400); Red Blood Cell Count 3.86 X10^6/uL (4.0-5.2); Red Cell Distribution Width 13.4 % (11.6-14.8); White Blood Cell Count 8.2 X10^3/uL (4.5-11.0)
[2022-07-16 16:51] LABS: Alanine Aminotransferase 20 IU/L (<35); Albumin 3.2 g/dL (3.5-5.0); Albumin Globulin Ratio 1.1 (1.0-2.8); Alkaline Phosphatase 56 U/L (38-126); Aspartate Aminotransferase 25 IU/L (14-36); Bilirubin Total 0.5 mg/dL (0.2-1.3); Blood Urea Nitrogen 9 mg/dL (7-17); Calcium 7.7 mg/dL (8.4-10.2); Carbon Dioxide 22 mmol/L (22-32); Chloride 110 mmol/L (98-107); Estimated Glomerular Filt Rate > 60 mL/min (>60); Globulin 2.8 g/dL (1.7-4.1); Glucose 79 mg/dL (70-100); HEMOLYSIS < 15 (0-50); Potassium 3.9 mmol/L (3.4-5.1); Sodium 136 mmol/L (137-145)
[2022-07-16 16:57] LABS: COVID19 -Nasal RAPID Negative (Negative)
[2022-07-16 17:27] LABS: Influenza A - CEPHEID Flu A NEGATIVE (NEGATIVE); Influenza B - CEPHEID Flu B NEGATIVE (NEGATIVE); Respiratory Syncytial Virus Negative (Negative)
[2022-07-16 17:42] LABS: COVID-19 CEPHEID 4-PLEX PCR Negative (Negative)
[2022-07-16 17:47] LABS: Lactate (Lactic Acid) 0.7 mmol/L (0.7-2.1)
[2022-07-16 17:47] LABS: Creatine Kinase 49 U/L (30-135)
[2022-07-16] MEDS: LACTATED RINGERS 1,000 ML 150 ML IV (17:47)
[2022-07-16 18:00] LABS: Troponin I < 0.012 ng/mL (0.01-0.034)
[2022-07-16 18:05] LABS: Procalcitonin 0.04 ng/mL (<0.5)
--- NOTE | 2022-07-16 18:25 | DI.CT.S_ITS ---
PROCEDURE: CT ANGIO CHEST PE PROTOCOL INDICATIONS: hypotension TECHNIQUE: After the administration of intravenous contrast, 2 mm thick sections acquired from the pulmonary apices to the posterior costophrenic angles. 3-dimensional maximum intensity projection (MIP) coronal and sagittal reformats were then acquired through the thorax. For radiation dose reduction, the following was used: automated exposure control, adjustment of mA and/or kV according to patient size. COMPARISON: None. FINDINGS: Image quality: Opacification of pulmonary arteries are suboptimal. Pulmonary arteries: Pulmonary arteries are normal in size, and demonstrate no intraluminal filling defects to suggest central pulmonary embolism. Lungs and pleura: Elevation of the left hemidiaphragm. Left basilar atelectasis. Lungs are clear. No pleural effusions or pneumothorax. Central and peripheral airways are patent. Mediastinum: Heart size is normal, without pericardial effusion. No mediastinal or hilar adenopathy. Thoracic aorta is normal in caliber and enhancement. Esophagus is normal in caliber, without hiatal hernia. Bones and chest wall: No suspicious bony lesions. Ribs and thoracic spine appear intact throughout. Thyroid gland is normal. No axillary or supraclavicular adenopathy. Abdomen: Visualized upper abdominal solid organs appear normal in the early arterial phase of enhancement. IMPRESSION: 1. Suboptimal opacification of pulmonary arteries. No definitive pulmonary emboli. 2. Left hemidiaphragm elevation and left basilar atelectasis. Dictated by: Nguyễn Lindsey M.D. on 07/16/2022 at 19:08 Approved by: Nguyễn Lindsey M.D. on 07/16/2022 at 19:14
[2022-07-16 18:35] LABS: Ur Creatinine Normal (Normal); Ur Specific Gravity Normal (Normal); Urine pH Normal (Normal)
[2022-07-16 18:36] LABS: UR Morphine/Opiate cutoff 300 Positive (Negative); Urine Amphetamines Negative (Negative); Urine Barbiturates Negative (Negative); Urine Benzodiazepines Negative (Negative); Urine Cocaine Negative (Negative); Urine MDMA Negative (Negative); Urine Methadone Negative (Negative); Urine Methamphetamines Negative (Negative); Urine Oxycodone Negative (Negative); Urine Phencyclidine Negative (Negative); Urine Tetrahydrocannabinol Positive (Negative); Urine Tricyclic Antidepressant Negative (Negative)
--- NOTE | 2022-07-16 21:43 | PM.EVENT ---
Event Note Event Note (Rapid Response, Code, or fall): Consult requested from ERP for ICU admission. Briefly this is a 41 year old female who is 19 weeks presenting with right sided abdominal. Patient developed hypotension requiring 4 liters of crystalloid bolus. Workup thus far are negative beside UA showing mild LE and WBC. Started on abx per ERP. OB consulted and recommend cont fluids and abx. Recommend transfer to tertiary care due to undifferentiated hypotension which may warrant further workup. Will defer management to ERP and OB team. D/w ERP.
[2022-07-17] VITALS (16 sets, daily range): BP systolic 97–144; BP diastolic 56–80; PULSE 58–114; RESP 18–86; O2SAT 95–99
--- NOTE | 2022-07-17 01:02 | DI.RAD.S_ITS ---
PROCEDURE: XR CHEST FOR PICC 1V INDICATIONS: check picc placement COMPARISON: None. FINDINGS: PICC was placed by the intravenous therapy team from the right side. Fluoroscopic spot film demonstrates the tip of PICC projecting to the area of right atrium. This could be retracted about 3 cm. IMPRESSION: Tip of PICC projects to the area of right atrium and could be retracted about 3 cm. Dictated by: Itzel Mai M.D. on 07/17/2022 at 3:03 Approved by: Itzel Mai M.D. on 07/17/2022 at 3:04
--- NOTE | 2022-07-17 01:15 | DI.RAD.S_ITS ---
PROCEDURE: XR CHEST 1V INDICATIONS: post picc adjustment TECHNIQUE: One view of the chest was acquired. COMPARISON: [facility], , XR CHEST FOR PICC 1V, 07/17/2022, 1:02. FINDINGS: Surgical changes and devices: Right PICC line tip is now in the region of the proximal to mid SVC. Cholecystectomy clips are seen. There are overlying monitoring wires. Lungs and pleura: Lungs are clear. No pleural effusions or pneumothorax. Mediastinum: Mediastinal contours appear normal. Heart size is normal. Bones and chest wall: No suspicious bony lesions. Overlying soft tissues appear unremarkable. IMPRESSION: 1. Right PICC line tip now in the proximal to mid SVC region. 2. No acute cardiopulmonary disease. Dictated by: Itzel Mai M.D. on 07/17/2022 at 3:04 Approved by: Itzel Mai M.D. on 07/17/2022 at 3:06
--- NOTE | 2022-07-17 01:20 | PC.NURSE ---
0109: PICC RN Mariama from outside agency reports patient is having sudden onset chest pain. This RN goes in to check on patient. Patient reporting really bad chest pressure at sternum. Provider aware and at bedside. Chest x-ray confirmed PICC placement in heart. Patient becomes tachycardiac at 114. PICC line adjusted. Provider remains at bedside. Patient reports chest pain improving. 0120: Pt reports chest pain returning. Second EKG performed. Provider aware. New orders of 25 mcg of IV fentanyl.
[2022-07-17] MEDS: fentaNYL 100 MCG/2 ML INJ 25 MCG IV (01:28)
== END 2022-07-17 03:12 | disposition short-term general hospital (02) ==
PROVIDERS: Emergency Medicine; Emergency Provider Emergency Medicine; PCP Internal Medicine
DX: O26.892 Other specified pregnancy related conditions, second trimester (principal); I95.9 Hypotension, unspecified; R07.9 Chest pain, unspecified; Z20.822 Contact with and (suspected) exposure to COVID-19
CPT/HCPCS: 0241U; 36415; 71045; 71275; 74181; 76700; 76705; 76815; 80053; 80305; 81001; 81003; 81025; 82550; 83605; 83690; 84145; 84484; 85025; 85610; 87040; 87086; 87635; 93005; 93010; 96361; 96365; 96366; 96375; 96376; 99285; 99291; C9803; J2270; J2405; J2543; J3010; Q9967

== ENCOUNTER 2022-07-24 21:53 | Emergency (ER) | payer OTHER, MEDICAID, SELFPAY ==
--- NOTE | 2022-07-24 21:56 | ED_ITS ---
HPI - Extremity Injury (Upper) General Chief Complaint: Wound/Laceration Stated Complaint: Deep finger lac Time Seen by Provider: 07/24/22 21:55 History of Present Illness HPI narrative: 41-year-old female former smoker presents for evaluation an accidental laceration to the tip of her right middle finger just prior to arrival. She was cleaning a sharp kitchen knife when she cut the tip of her finger, she washed it immediately and put a dressing on it before coming here. She has full range of motion and bleeding is controlled. She denies numbness, tingling or weakness. She denies any chance of foreign body. Her tetanus is current. Related Data Previous Rx's Medication Instructions Recorded vits no.126-ferrous fum 1 tab PO DAILY #90 tabs 06/14/22 28 mg iron-folic acid 800 mcg tablet (Classic ) Allergies Allergy/AdvReac Type Severity Reaction Status Date / Time morphine Allergy Intermediate pt felt Verified 07/16/22 09:00 like she was on fire paper tape Allergy Uncoded 07/16/22 09:00 plastic tape Allergy Uncoded 07/16/22 09:00 Review of Systems Review of Systems Narrative: GENERAL: Denies chills, fatigue, malaise, fever, sweats. HEENT: Denies sinus pain, ear pain, sore throat, difficulty swallowing, dizziness. RESPIRATORY: Denies dyspnea, cough, wheezing, hemoptysis, sputum. CARDIOVASCULAR: Denies chest pain, palpitations, orthopnea, edema, GASTROINTESTINAL: Denies nausea, vomiting, abdominal pain, diarrhea, cons tipation, melena. : Denies dysuria, frequency, incontinence, hematuria, urinary retention. MUSCULOSKELETAL: denies weakness, joint pain, or bony pain SKIN: See HPI NEUROLOGIC: Denies weakness, headache, numbness, change in speech, confusion, seizures, incoordination. PSYCHIATRIC: No concerning psychosocial issues. 12 point review of systems is negative except for those stated above Patient History Medical History History of Polycystic ovaries (10/06/15) Viral URI with cough Social History Smoking Status: Former smoker Smoking Status: Former smoker alcohol intake frequency: holidays/special occasions only Substance Use Type: marijuana Exam Narrative Exam Narrative: GEN: AOx3 and in mild distress EYES: Pupils are equal, round, and reactive to light and accommodation. Extraoccular muscles are intact bilaterally. There is no subconjunctival hemorrhage or exudate. CHEST: Lungs are clear to auscultation bilaterally and free of wheezes, rales, or rhonchi. Heart rate is regular rhythm, there are no murmurs, clicks, rubs, or gallops. There is no chest wall tenderness. ABD: Abdomen is soft and nontender. There is no guarding or rebound. Bowel sounds are normal in all 4 quadrants. There is no mass or organomegaly. EXT: Small 0.5 superficial laceration on the tip of right middle finger, does not cross a joint line, does not involve the nail, nail bed or nail fold, bleeding easily stopped with minimal pressure Full painless ROM of all extremities with no loss of sensation or strength. SKIN: Warm, pink, and dry. No erythema or rash Initial Vital Signs Initial Vital Signs: Vital Signs Temperature 96.3 F L 07/24/22 21:57 Pulse Rate 104 H 07/24/22 21:57 Respiratory Rate 16 07/24/22 21:57 Blood Pressure 111/69 07/24/22 21:57 Pulse Oximetry 97 07/24/22 21:57 Oxygen Delivery Method 07/24/22 21:57 Course Vital Signs Vital signs: Vital Signs - 8 hr 07/24/22 21:57 Temperature 96.3 F L Pulse Rate 104 H Respiratory Rate 16 Blood Pressure 111/69 Pulse Oximetry 97 Oxygen Delivery Method Room Air MDM - Extremity Injury (Upper) MDM Narrative Medical decision making narrative: [41] year old patient presents with accidental, work related laceration to tip of right middle finger Multiple etiologies for patient's symptoms considered including, but not limited to: [Superficial laceration versus deep laceration versus other] Prior Charts reviewed in our EMR Primary Historian: patient 0.5 cm superficial laceration with minimal active bleeding, no indication for sutures, repaired with skin adhesive. Patient's tetanus is current, no indication for antibiotics Patient's symptoms improved over duration of stay with above-stated therapies. Findings and discharge diagnosis discussed with patient/family followed by verbalization of understanding Return precautions discussed with patient/family whom verbalize understanding of diagnosis and plan Discharge Plan Departure Patient Disposition: Home Clinical Impression: Laceration Instructions: DI for Minor Laceration Activity Restrictions/Additional Instructions: *You have been diagnosed with [ right middle finger laceration, repaired with skin adhesive] *What to do: *Please continue to take your regular medications as directed. *Please follow up with your primary care provider in 2-3 days, call for an appointment. Let them know you were seen in the Emergency Department and that we ask that you be seen in follow up. We will electronically transmit a record of today's note if your PCP is in our system *Return to Emergency Department if you should have any new, worsening or concerning symptoms, such as [fever greater than 101 F, shaking chills, worsening pain, persistent vomiting or other bothersome symptoms] Prescriptions: No Action Classic 28 mg iron- 800 mcg tablet 1 tab PO DAILY Qty: 90 3RF Referrals: Justyna Beltran MD [Primary Care Provider] - Stand Alone Forms: Patient Portal/API
[2022-07-24 21:57] VITALS: BP 111/69; PULSE 104; RESP 16; TEMP 35.7; O2SAT 97; BMI 35.2
== END 2022-07-24 22:30 | disposition home or self-care (01) ==
PROVIDERS: Emergency Provider Emergency Medicine; PCP Internal Medicine
DX: S61.212A Laceration without foreign body of right middle finger without damage to nail, initial encounter (principal); W26.0XXA Contact with knife, initial encounter
CPT/HCPCS: 99281; 99282

== ENCOUNTER → 2022-08-24 15:47 | Outpatient (CLI) | payer OTHER, MEDICAID, SELFPAY ==
--- NOTE | 2022-08-24 15:50 | DI.US.S_ITS ---
PROCEDURE: US OB FOLLOW UP INDICATIONS: FOLLOW-UP ANATOMY OUTSIDE/PRIOR DATING DATA: Last menstrual period (LMP): Unknown. LMP-based estimated date of delivery (NABIL): Unknown. First dating scan (date and location): 06/22/2022. Estimated date of delivery (NABIL) from first dating scan: 12/07/2022. The calculations are made using the ultrasound NABIL of 12/07/2022. TECHNIQUE: Real-time scanning was performed of the fetus, with image documentation. COMPARISON: [facility] Ultrasound, US, US OB > 14 WEEKS COMPLETE ANATOMY, 08/05/2022, 16:07. FINDINGS: A single living intrauterine gestation is present. Presentation: Vertex. Placenta: Placental position is anterior, without previa. Amniotic fluid index: 15.0 cm, normal range is 5-24 cm. heart rate: 147 beats per minute. Maternal cervical canal: 4.7 cm long. Normal lower limit is 2.5 cm. Estimated gestational age from initial scan: 25 weeks 0 days Miscellaneous: Right ventricular outflow tract, cerebellum are within normal limits.. IMPRESSION: Single live intrauterine with ultrasound gestational age of 25 weeks 2 days. Right ventricular outflow tract and cerebellum are within normal limits. Dictated by: Melani Rizzo M.D. on 08/24/2022 at 17:22 Approved by: Melani Rizzo M.D. on 08/24/2022 at 17:24
[2022-08-24 17:11] LABS: Add Manual Diff / Slide Review NO; Basophils Absolute Auto 0 /uL (0-100); Basophils Percent Auto 0.2 % (0-2); Eosinophils Absolute Auto 200 /uL (0-450); Eosinophils Percent Auto 2.4 % (2-4); Hematocrit 34.4 % (36-46); Hemoglobin 11.9 g/dL (12.0-16.0); Lymphocytes Absolute Auto 2000 /uL (1100-4500); Lymphocytes Percent Auto 23.3 % (25-40); Mean Corpuscular HGB Conc 34.6 % (30-36); Mean Corpuscular Hemoglobin 30.6 PG (26-34); Mean Corpuscular Volume 88.4 fL (80-100); Monocytes Absolute Auto 600 /uL (0-900); Monocytes Percent Auto 6.8 % (3-14); Neutrophils Absolute Auto 5800 /uL (1500-7000); Neutrophils Percent Auto 67.3 % (50-75); Platelet Count 216 X10^3/uL (150-400); Red Blood Cell Count 3.89 X10^6/uL (4.0-5.2); Red Cell Distribution Width 13.4 % (11.6-14.8); White Blood Cell Count 8.6 X10^3/uL (4.5-11.0)
[2022-08-24 20:02] LABS: Appearance Urine UA SL CLOUDY; Bilirubin Urine UA NEGATIVE (NEGATIVE); Color Urine UA YELLOW; Glucose Urine UA NEGATIVE (Negative); Ketones Urine UA TRACE (NEGATIVE); Leukocyte Esterase Urine UA NEGATIVE (NEGATIVE); Nitrite Urine UA NEGATIVE (Negative); Occult Blood Urine UA NEGATIVE (Negative); Protein Urine UA TRACE (Negative); Specific Gravity Urine UA >=1.030 (1.000-1.035); Urobilinogen Urine UA 0.2 E.U./dL (0.2)
[2022-08-26 11:44] LABS: Varicella IgG Antibody 1160 index (Immune >165)
[2022-08-26 15:40] LABS: Hepatitis B Surface Antigen NEGATIVE s/c (NEGATIVE); Rubella Antibody IgG 5.9 IU/mL (>15)
[2022-08-26 15:51] LABS: Hep C Virus Ab w/Reflex Quant NEGATIVE s/c (NEGATIVE)
[2022-08-26 16:22] LABS: HIV 1 & 2 Ab/Ag 4th Gen Combo NEGATIVE (NEGATIVE)
[2022-08-27 09:38] LABS: RPR Screen Non Reactive (Non Reactive)
== END ==
PROVIDERS: PCP Internal Medicine; Referring Provider Obstetrics & Gynecology; Visit Provider Obstetrics & Gynecology
DX: Z34.92 Encounter for supervision of normal pregnancy, unspecified, second trimester (principal); Z3A.25 25 weeks gestation of pregnancy
CPT/HCPCS: 36415; 76816; 80055; 81003; 86787; 86803; 86850; 86900; 86901; 87086; 87389

== ENCOUNTER → 2022-09-14 11:34 | Outpatient (CLI) | payer OTHER, MEDICAID, SELFPAY ==
[2022-09-14 14:15] LABS: Urine N gonorrhoeae NOT DETECTED
[2022-09-14 14:21] LABS: Urine Chlamydia NOT DETECTED
== END ==
PROVIDERS: PCP Internal Medicine; Visit Provider Obstetrics & Gynecology
DX: Z11.3 Encounter for screening for infections with a predominantly sexual mode of transmission (principal); Z34.83 Encounter for supervision of other normal pregnancy, third trimester; Z3A.28 28 weeks gestation of pregnancy
CPT/HCPCS: 87491; 87591

== ENCOUNTER → 2022-09-14 12:00 | Outpatient (CLI) | payer OTHER, MEDICAID, SELFPAY ==
[2022-09-14 14:00] LABS: GTT (PREG) 1 Hour PP 50gm Dose 107 mg/dL (76-139)
== END ==
PROVIDERS: PCP Internal Medicine; Referring Provider Obstetrics & Gynecology; Visit Provider Obstetrics & Gynecology
DX: Z34.83 Encounter for supervision of other normal pregnancy, third trimester (principal); Z11.3 Encounter for screening for infections with a predominantly sexual mode of transmission; Z3A.28 28 weeks gestation of pregnancy
CPT/HCPCS: 36415; 82950; 87491; 87591

== ENCOUNTER 2022-11-04 11:55 | Outpatient (CLI) | payer OTHER, MEDICAID, SELFPAY ==
[2022-11-04 12:35] LABS: Appearance Urine UA CLEAR; Bilirubin Urine UA NEGATIVE (NEGATIVE); Color Urine UA YELLOW; Glucose Urine UA NEGATIVE (Negative); Ketones Urine UA NEGATIVE (NEGATIVE); Leukocyte Esterase Urine UA NEGATIVE (NEGATIVE); Nitrite Urine UA NEGATIVE (Negative); Occult Blood Urine UA NEGATIVE (Negative); Protein Urine UA NEGATIVE (Negative); Urobilinogen Urine UA 0.2 E.U./dL (0.2)
[2022-11-04 12:47] LABS: Bacteria Urine Occasional (0-1); Culture Indicated Urine Specimen Cultured; RBC Urine None Seen (0-5/HPF); Renal Epithelial Cells Urine 5-10/HPF (0-1/HPF); Squamous Epithelial Cell Urine 5-10 /HPF (0-5/HPF); WBC Urine 5-10/HPF (0-5/HPF)
== END 2022-11-04 13:42 | disposition home or self-care (01) ==
LOC: LABOR 12:18 → OB 11-08 13:57
PROVIDERS: PCP Internal Medicine; Referring Provider Obstetrics & Gynecology; Visit Provider Obstetrics & Gynecology
DX: O60.03 Preterm labor without delivery, third trimester (principal); Z3A.35 35 weeks gestation of pregnancy
CPT/HCPCS: 59025; 59050; 81001; 87086; G0378; G0379

== ENCOUNTER → 2022-11-11 16:13 | Outpatient (CLI) | payer OTHER, MEDICAID, SELFPAY ==
[2022-11-12 14:24] LABS: Strep Grp B PCR NEG for Grp B Strep
== END ==
PROVIDERS: PCP Internal Medicine; Visit Provider Obstetrics & Gynecology
DX: Z34.83 Encounter for supervision of other normal pregnancy, third trimester (principal); Z3A.36 36 weeks gestation of pregnancy
CPT/HCPCS: 87653

== ENCOUNTER 2022-11-25 09:53 | Outpatient (CLI) | payer OTHER, MEDICAID, SELFPAY | END 2022-11-25 11:00 | disposition home or self-care (01) | LOC: OB 12-01 08:48 | PROVIDERS: PCP Internal Medicine; Referring Provider Obstetrics & Gynecology; Visit Provider Obstetrics & Gynecology | DX: O09.523 Supervision of elderly multigravida, third trimester (principal); O99.213 Obesity complicating pregnancy, third trimester; Z3A.38 38 weeks gestation of pregnancy; E66.9 Obesity, unspecified | CPT/HCPCS: 59025; G0378; G0379 ==

== ENCOUNTER 2022-12-01 16:24 | Observation (INO) | payer OTHER, MEDICAID, SELFPAY ==
[2022-12-01] MEDS: hydrOXYzine 50 MG/ML INJ 25 MG IM (18:34)
[2022-12-01] MEDS: MORPHINE 10 MG/ML INJ IM (18:34)
== END 2022-12-01 19:51 | disposition home or self-care (01) ==
PROVIDERS: Admitting Provider Obstetrics & Gynecology; PCP Internal Medicine; Referring Provider Obstetrics & Gynecology; Visit Provider Obstetrics & Gynecology
DX: O47.1 False labor at or after 37 completed weeks of gestation (principal); O09.523 Supervision of elderly multigravida, third trimester; O99.213 Obesity complicating pregnancy, third trimester; E66.9 Obesity, unspecified; Z3A.39 39 weeks gestation of pregnancy
CPT/HCPCS: 59025; 59050; 96372; G0378; G0379; J2270; J3410

== ENCOUNTER 2022-12-02 19:48 | Inpatient (IN) | payer OTHER, MEDICAID, SELFPAY ==
[2022-12-02 20:24] VITALS: BP 102/67
[2022-12-02 21:32] LABS: Add Manual Diff / Slide Review NO; Basophils Absolute Auto 0 /uL (0-100); Basophils Percent Auto 0.4 % (0-2); Eosinophils Absolute Auto 200 /uL (0-450); Eosinophils Percent Auto 1.9 % (2-4); Hematocrit 32.7 % (36-46); Hemoglobin 11.4 g/dL (12.0-16.0); Lymphocytes Absolute Auto 2200 /uL (1100-4500); Lymphocytes Percent Auto 25.5 % (25-40); Mean Corpuscular HGB Conc 34.8 % (30-36); Mean Corpuscular Hemoglobin 30.2 PG (26-34); Mean Corpuscular Volume 86.8 fL (80-100); Monocytes Absolute Auto 700 /uL (0-900); Monocytes Percent Auto 8.5 % (3-14); Neutrophils Absolute Auto 5600 /uL (1500-7000); Neutrophils Percent Auto 63.7 % (50-75); Platelet Count 249 X10^3/uL (150-400); Red Blood Cell Count 3.76 X10^6/uL (4.0-5.2); Red Cell Distribution Width 13.4 % (11.6-14.8); White Blood Cell Count 8.8 X10^3/uL (4.5-11.0)
[2022-12-02] MEDS: miSOPROStoL 25 MCG TABLET VAG (21:35)
[2022-12-02 21:42] LABS: UR Morphine/Opiate cutoff 300 Positive (Negative); Ur Creatinine Normal (Normal); Ur Specific Gravity Normal (Normal); Urine Amphetamines Negative (Negative); Urine Cocaine Negative (Negative); Urine Methamphetamines Negative (Negative); Urine Phencyclidine Negative (Negative); Urine Tetrahydrocannabinol Positive (Negative); Urine pH Normal (Normal)
[2022-12-02 21:43] LABS: Urine Barbiturates Negative (Negative); Urine Benzodiazepines Negative (Negative); Urine MDMA Negative (Negative); Urine Methadone Negative (Negative); Urine Oxycodone Negative (Negative); Urine Tricyclic Antidepressant Negative (Negative)
[2022-12-03] MEDS: LACTATED RINGERS 1,000 ML 100 ML IV (02:10)
[2022-12-03] MEDS: fentaNYL 100 MCG/2 ML INJ 50 MCG IV ×2 (02:10→03:36)
[2022-12-03] MEDS: miSOPROStoL 25 MCG TABLET VAG (02:15)
--- NOTE | 2022-12-03 04:39 | PM.AN.REGBLK ---
Regional Block Pre-procedure Procedure: Continuous Lumbar Epidural for L&D Attending OB provider: Chel Mosher PMH/ROS narrative: , AMA, on 81 mg ASA, h/o PP depression, PCOS, (+) MJ Exam narrative: WNL Labs: Hct 32.7 % (36-46) L 12/02/22 21:05 Plt Count 249 X10^3/uL (150-400) 12/02/22 21:05 Medications: Current Medications Generic Name Dose Route Start Last Admin Trade Name Freq PRN Reason Stop Dose Admin Calcium Carbonate 1,000 mg 12/02/22 19:55 Calcium Carbonate 500 Mg Tab PO Q4HR PRN Dyspepsia Carboprost Tromethamine 250 mcg 12/02/22 19:55 Carboprost 250 Mcg/Ml Ampul IM Q90M PRN Bleeding Fentanyl 50 mcg 12/02/22 19:55 12/03/22 03:36 Fentanyl 100 Mcg/2 Ml Inj IV 50 mcg Q1H PRN Administration Pain, Moderate (4-6) Oxytocin/Lactated Ringer's 30 unit in 500 mls @ 2 mls/hr 12/02/22 20:00 Oxytocin Premix IV TITRATE OMKAR Protocol 2 MILLIUNIT/MIN Oxytocin/Lactated Ringer's 30 unit in 500 mls @ 200 mls/hr 12/02/22 19:55 Oxytocin Premix IV CONT PRN Bleeding Protocol Tranexamic Acid 1,000 mg/ 100 mls @ 200 mls/hr 12/02/22 19:55 Sodium Chloride IV NOW PRN Bleeding Lactated Ringer's 1,000 mls @ 100 mls/hr 12/02/22 20:00 12/03/22 02:10 Lactated Ringers IV 100 mls/hr CONT OMKAR Administration Lidocaine HCl 20 ml 12/02/22 19:55 Lidocaine 1% 20 Ml INJ INTRA-OP PRN Post Delivery Methylergonovine Maleate 0.2 mg 12/02/22 19:55 Methylergonovine 0.2 Mg/Ml Vial IM NOW PRN Bleeding Methylergonovine Maleate 0.2 mg 12/02/22 19:55 Methylergonovine 0.2 Mg Tablet PO Q6HR PRN Heavy Bleeding Misoprostol 25 mcg 12/02/22 20:00 12/03/22 02:15 Misoprostol 25 Mcg Tablet VAG 25 mcg Q4H OMKAR Administration Misoprostol 400 mcg 12/02/22 19:55 Misoprostol 200 Mcg Tablet SL NOW PRN Bleeding Misoprostol 800 mcg 12/02/22 19:55 Misoprostol 200 Mcg Tablet NC NOW PRN Bleeding Naloxone HCl 0.2 mg 12/02/22 19:55 Naloxone 0.4 Mg/Ml Vial IV Q2MIN PRN Opiate Reversal Ondansetron HCl 4 mg 12/02/22 19:55 Ondansetron 4 Mg/2 Ml Inj IV Q4HR PRN Nausea And Vomiting Oxytocin 10 unit 12/02/22 19:55 Oxytocin 10 Unit/Ml Vial IM NOW PRN Bleeding Allergies: Allergies Allergy/AdvReac Type Severity Reaction Status Date / Time morphine AdvReac Intermediate pt felt Verified 12/02/22 20:29 like she was on fire plastic tape Allergy Mild Rash Uncoded 12/02/22 20:32 paper tape Allergy Rash Uncoded 12/02/22 20:29 Procedure Insertion date: 12/03/22 Insertion time: 04:24 Prep/Local: betadine x3 and 1% lidocaine Interspace: L34 Patient position: sitting Needle: 18 gauge [employer] (CSE: 27g Pencan through [employer], 2.5mg MPF bupiv) Loss of resistance with: saline ОЛЬГА at (cm): 6 Catheter placed at SKIN (cm): 12 Catheter in SPACE (cm): 6 Insertion: No CSF, No Blood, No Paresthesia with insertion, No Paresthesia with injection and No Test dose reaction Initial Medications TEST DOSE time: 04:24 TEST DOSE: 1.5% lidocaine with epinephrine 1:200k (mL): 3 BOLUS DOSE time: 04:26 BOLUS DOSE (mL): 4 BOLUS DOSE med: other (infusate) Infusion INFUSION: 0.125% bupivacaine and with fentanyl 2 mcg/mL Initial rate (mL/hr): 10 Subsequent interventions: first attempt L45, unable to access. L34 second attempt, clean ОЛЬГА. Pt with low pain tolerance. To OR for CS for intolerance of labor Post-procedure Anesthesia time START: 04:07 Anesthesia time END: 10:33 Post-procedure Anesthesia Assessment: Yes CV function: HR/BP stable, Yes Resp function: RR/sat/airway adequate, Yes Post-op hydration adequate, Yes Pain control adequate, Yes Nausea & vomiting absent, Yes Temperature > 36 C, Yes Mental status appropriate and No Anesthesia complications
--- NOTE | 2022-12-03 07:47 | P.HPOB_ITS ---
OB HPI Date/Time Date of admission: 12/02/22 Date Patient Seen: 12/03/22 Time Patient Seen: 07:47 History of Present Condition Chief complaint: observation of labor NABIL Calculator Estimated Delivery Date Method Current WG Current Estimate 12/07/22 Ultrasound #1 39w 3d Other Estimates 02/02/23 LMP (Uncertain) 31w 2d Estimated Gestational Age (weeks): 39+3 : 3 Para: 1 care: limited care, initiated at week # (28), number of visits and pounds weight gain (26) Dating criteria OB: based on 2nd trimester US only Ultrasounds: normal mid trimester US Obstetrical complications: none Medical complications OB: none Indications Indication for induction OB: other (AMA) Preadmission Labs Last OB Lab Results: Blood Type O Positive 12/02/22 21:05 Antibody Screen Negative 12/02/22 21:05 Hematocrit 32.7 % (36-46) L 12/02/22 21:05 Hemoglobin 11.4 g/dL (12.0-16.0) L 12/02/22 21:05 Hepatitis B Surface Antigen Negative s/c (NEGATIVE) 08/24/22 16 :34 Hepatitis C Antibody Negative s/c (NEGATIVE) 08/24/22 16:34 Rubella Antibody 5.9 IU/mL (>15) L 08/24/22 16:34 Varicella-Zoster IgG Antibody 1160 index (Immune >165) 08/24/22 16:34 Glucose 1 Hour 107 mg/dL (76-139) 09/14/22 12:03 Group B Streptococcus (PCR) Neg for grp b strep 11/11/22 16:13 -: Chlamydia screen: negative, Gonorrhea screen: negative and Urine: negative -: PAP smear: Normal (2019) External Labs -: Urine: negative Prior (ies) Past Pregnancies Del. Date GA/Weeks Labor Lgth Wt Sex Route Outcome Anesthesia Place Delv Breastfeed Preg Comp Name 05/30/97 ~8 spontaneous 02/01/17 39.3 13 7 lb 6 oz Female vaginal live - full term ep idural IH 2 months none [place] Delivery Date: 05/30/97 Last Updated by: Regi Holman, VINNIE passed spontaneously, no complications Evaluation Evaluation Baseline heart rate: 145 Variability: Moderate (11-25) monitor accelerations: Present Monitor Decelerations: Absent Contraction Frequency (minutes): 2 Uterine Contraction Intensity: Moderate Status: Category l Dilation (cm): 3 Effacement (%): 75 station: -2 Position of cervix: mid Consistency: soft [facility] Medical History (Updated 11/23/22 @ 13:58 by Chel Mosher MD) Asthma Polycystic ovaries (10/06/15) depression Viral URI with cough Surgical History (Updated 08/17/22 @ 10:33 by Regi Holman, RN) History of cholecystectomy Family History (Updated 08/17/22 @ 10:35 by Regi Holman, RN) Mother Heart attack Stroke Father Diabetes mellitus Pancreatitis Sister Diabetes mellitus Family/Other Diabetes mellitus Social History marital status: unmarried,living together number of children: 1 household members: significant other (ex-) and children lives independently: Yes caregiver/support person: Yes housing: other (hotel) pets and animals: Yes (1 dog) education level: college (some college) 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) current occupational exposures/hazards: No special benjamin needs: No travel history: over 6 months ago seatbelt use: sometimes water heater temp set < 120 deg: Yes working smoke detector in home: Yes fire extinguisher in home: Yes carbon monox detector in home: Yes firearms in home: No do you feel safe at home: Yes Smoking Status: Former smoker Tobacco: How many years used: 18 second hand exposure: Yes (s/o smokes, but not around pt or daughter) alcohol intake: former (~3-4/week when not ) substance use type: marijuana (not interested in quitting) during the past year weight has: increased > 10 lbs well-balanced diet: rarely or never daily servings fruits/ve-1 caffeine: Yes (occasional coffee/soda, not every day) Type(s) of exercise: walking frequency: daily duration: < 15 minutes/day Meds Home Medications and Allergies Home Medications Medication Instructions Recorded Confirmed Type vits no.126-ferrous fum 1 tab PO DAILY #90 tabs 06/14/22 12/02/22 Rx 28 mg iron-folic acid 800 mcg tablet (Classic ) Allergies Allergy/AdvReac Type Severity Reaction Status Date / Time morphine AdvReac Intermediate pt felt Verified 12/02/22 20:29 like she was on fire plastic tape Allergy Mild Rash Uncoded 12/02/22 20:32 paper tape Allergy Rash Uncoded 12/02/22 20:29 OB Exam Narrative Exam Narrative: Generally: Patient lying in bed on her left side, comfortable with epidural Fundal height: 43 cm Estimated weight: 7-1/2 lb Extremities: 1+ edema Objective Labs 12/02/22 21:05 Labs: Laboratory Results - last 24 hr 12/02/22 12/02/22 12/02/22 20:00 21:05 21:05 WBC 8.8 RBC 3.76 L Hgb 11.4 L Hct 32.7 L MCV 86.8 MCH 30.2 MCHC 34.8 RDW 13.4 Plt Count 249 Neut % (Auto) 63.7 Lymph % (Auto) 25.5 [place] % (Auto) 8.5 Eos % (Auto) 1.9 L Baso % (Auto) 0.4 Neut # (Auto) 5600 Lymph # (Auto) 2200 [place] # (Auto) 700 Eos # (Auto) 200 Baso # (Auto) 0 U Opiates 300ng/mL cut Positive H Ur Oxycodone Screen Negative Urine Methadone Screen Negative Ur Barbiturates Screen Negative U Tricyclic Antidepress Negative Ur Phencyclidine Scrn Negative Ur Amphetamines Screen Negative U Methamphetamines Scrn Negative Ur MDMA Scrn (Ecstasy) Negative U Benzodiazepines Scrn Negative Urine Cocaine Screen Negative U Marijuana (THC) Screen Positive H Blood Type O Positive Antibody Screen Negative Assessment and Plan Assessment and Plan Assessment and Plan narrative: Assessment: 41-year-old 3 para 1 at 39+3 weeks' gestation status post 2 doses of Cytotec Difficult to monitor overnight Plan: IUPC and scalp electrode placed Will watch contraction pattern over the next 20-30 minutes before deciding on Pitocin Time Spent with Patient Total time spent with greater than 50% in coordination of care (as documented) at patient's floor/unit and/or counseling patient:: 15-24 minutes
--- NOTE | 2022-12-03 08:43 | CM.SWNOTE ---
TOOL POLISHING MACHINE OPERATOR Note TOOL POLISHING MACHINE OPERATOR team requested for consult to assist in assessment of need and DC coordination for this 41 yo female, currently in labor per VINNIE Anderson, mom is in [place]05 Mom and family familiar to this TOOL POLISHING MACHINE OPERATOR, ALEXIS Yao Duval, 40yo, very recently admitted to the acute care floor at for management of acute NSTEMI. FOB with h/o alcohol and meth use, tox screen 6.16.23 meth+ with 10-15% EF and recent h/o hospice services (FOB graduated off hospice recently). FOB w/hx of medical non-compliance Mom and ALEXIS Yao live in the [facility] with their 5 yo daughter When housing was discussed with Mom Maria M and FOB Maximilian, Maximilian explained that they are not welcome at [facility] based on the bad behaviors of Maria M when she and Maximilian were and Maria M was living there with their daughter Maria M explained she had been in contact with [employer] [facility] and w/[facility] kin order to receive a housing stipend (?) unsure if this family is on any housing wait lists In addition, maternal (?) grandmother was supposed to be on her way approx 1-2 weeks ago from out of state to move in with this family and help out According to VINNIE Anderson, today will likely not be the appropriate day for bedside assessment, mom Maria M is in active labor. VINNIE Bonilla and MANUELA Mcneill are working this weekend and would both be great contacts to begin discussion with this family re safe discharge plan, resource referral, etc. Of note, mom with hx of Depression per chart review, resources and discussion re prevention, signs, management would be helpful MANUELA Roper
[2022-12-03] MEDS: FENT 2MCG/ML BUPIV 0.125% EPI 200 MCG/100 ML PLAST..BAG 6 MCG EPIDURAL (09:30)
--- NOTE | 2022-12-03 10:17 | PM.OBPNLAB ---
Date/Time Date Patient Seen: 12/03/22 Time Patient Seen: 10:17 Pain Control Pain control: epidural Pelvic Exam Dilation (cm): 3 Effacement (%): 75 station: -2 Amniotic membrane status: Ruptured Contractions Contractions on admission: none Monitor mode: Internal Pitocin rate (mU/min): 0 Contraction frequency (min): 3 Contraction duration (min): 1 Contraction pattern: Regular Contraction intensity: Strong/Firm Status status: Category ll Heart Rate Baseline: 135 Monitor Accelerations: Present Monitor Decelerations: Early, Late and Variable Monitor Variability: Minimal Assessment and Plan Comments: Assessment: 41-year-old 3 para 1 with intolerance of labor Plan: Primary section The risks, benefits, and alternatives to the procedure were explained to the patient. The risks including bleeding, infection, injury to the bowel, bladder, or ureters. She understands these risks and agrees to proceed. A full par Q was held and consent form was signed.
--- NOTE | 2022-12-03 10:26 | PM.PREOP ---
Pre-operative Note COVID-19 Criteria for continued procedure: Non-surgical alternatives not available or appropriate per current SOC Interval Note History & Physical reviewed/Exam performed by Physician: Yes Changes to H&P: No H&P completed within 30 days and has changed as indicated here:: 12/03/22
[2022-12-03] MEDS: CEFAZOLIN VIAL 3 GM in SODIUM CHLORIDE 0.9% 100 ML IV (10:35)
[2022-12-03] MEDS: AZITHROMYCIN 500 MG in DEXTROSE 5% IN WATER 250 ML 250 MG IV (10:35)
--- NOTE | 2022-12-03 10:50 | SUR.OPER ---
Supine on Padded OR bed, head on pillow, safety belt at thigh, arms secured on padded arm boards at <90 degrees abduction. Bump under right buttock. Legs uncrossed with pillow under knees, gel pad to heels, tape over blanket to lower legs.
--- NOTE | 2022-12-03 11:01 | SUR.OPER ---
Viable baby girl born at 1055. Placenta delivered at 1057. Cord given to RT. Placenta and cord blood given to OB RN.
--- NOTE | 2022-12-03 11:31 | DI.RAD.S_ITS ---
PROCEDURE: XR ABDOMEN 1V INDICATIONS: BROKEN SUTURE TIP COMPARISON: None. FINDINGS: Limited fluoroscopic images within the region of the pelvis were obtained. I no definitive radiopaque foreign body is identified. IMPRESSION: No definitive radiopaque foreign body. However, the superior aspect of the image is markedly darkened limiting evaluation. If concern persists, follow-up imaging is recommended. Dictated by: Melani Rizzo M.D. on 12/03/2022 at 15:34 Approved by: Melani Rizzo M.D. on 12/03/2022 at 15:41
--- NOTE | 2022-12-03 12:02 | P.OP_ITS ---
Operative Date/Time/Diagnoses Date of procedure: 12/03/22 Time of procedure: 12:02 Pre-op diagnosis: 39-3/7 weeks gestation Nonreassuring heart rate tracing, remote from delivery Post-op diagnosis: same Procedure & Clinicians Procedure: Primary low-transverse section Same procedure as scheduled: Yes Indications: 39-,3/7 weeks gestation Nonreassuring heart rate tracing, remote from delivery Surgeon: Chel Cho Yes if Unassisted: No Traffic Lieutenant: Gabbie Pool Reason for Traffic Lieutenant: The hospital nursing assistant was necessary to retract upon entry into the abdomen and uterus. She assisted with fundal pressure with delivery of the . She assisted with closure with retraction, clipping of suture, and closure of the contralateral fascia. Anesthesia Type: Spinal (With Duramorph) Operative Notes Findings: Live female in the KAYLIE presentation Normal uterus, tubes, and ovaries Closure Type: primary Specimen(s): cord blood, cord pH and placenta Intraoperative meds administered: Duramorph, Ketorolac and Pitocin Applied: Catheter (To continuous drainage) Estimated Blood Loss (mL): 600 Blood products transfused: none Procedure in detail: The patient was taken to the operating room where she was placed in the dorsal supine position with a leftward tilt. She was prepped in the usual sterile fashion. A Traxi drape was placed. She was draped in the usual sterile fashion. A timeout was performed. After epidural analgesia was found to be adequate, a Pfannenstiel skin incision was made 2 fingerbreadths above the pubic symphysis and carried through to the underlying layer fascia. The fascia was nicked in the midline, and the incision extended bilaterally with the Partida scissors. The superior aspect of the fascial incision was grasped with a Slade clamps, elevated, and the underlying rectus muscles dissected off sharply and bluntly. Attention was then turned to the inferior aspect of this incision which in a similar fashion was grasped with a Slade clamps, elevated, and the underlying rectus muscles dissected off sharply and bluntly. The rectus muscles were in the midline. The peritoneum was identified, grasped between 2 hemostats, and entered sharply with the Metzenbaum scissors. This incision was extended superiorly and inferiorly with good visualization of the bladder. The bladder blade was inserted. The vesicouterine peritoneum was identified, grasped with the pickup, and entered sharply with the Metzenbaum scissors. This incision was extended bilaterally, and the bladder flap was created digitally. The bladder blade was reinserted. The lower uterine segment was incised in a transverse fashion with the scalpel. Upon entering the amniotic sac there was a small amount of clear amniotic fluid. The 's head was found to be deep in the pelvis. The baby was delivered by breech extraction. The nose and mouth were suctioned with bulb suction. The remainder of the body delivered without difficulty. The cord was double clamped and cut. The infant was handed off to waiting RN and RT. Cord bloods were obtained. A piece of cord for cord pH was obtained. The placenta was delivered manually. The uterus was cleared of all clots and debris. The uterine incision was repaired with #1 chromic in a running interlocking fashion, and a second layer the same suture was used for an imbricating layer. Hemostasis was achieved. The tubes and ovaries were examined and were found to be normal. The gutters were cleared of all clots and debris. The bladder flap was reapproximated using 2-0 Vicryl in a running fashion. The parietal peritoneum was closed using 2-0 Vicryl in a running fashion. The fascia was reapproximated using 0 Vicryl in a running fashion. The subcutaneous layer was copiously irrigated with warm normal saline. 6 simple interrupted sutures of 3-0 Vicryl were placed to reapproximate the subcutaneous layer. The skin was closed with 4-0 Monocryl in a subcuticular fashion. Steri-Strips were placed. An Aquacel dressing was placed. The uterus was expressed of a small amount of old blood. Sponge, lap, and instrument counts were correct x-2. The patient tolerated the procedure well, and was taken to PACU in stable condition. Complications: none [place] Baby 1: Gender: Female Presentation: vertex Position: Right Occiput Anterior Placental Delivery Description: Manual Removal Cord Vessel Description: 3 Vessels and Clamped/Cut score (1 min): 3 score (5 min): 7 score (10 min): 7 weight: 7 lb 2.4 oz Post-operative Condition: stable Disposition: PACU Aftercare: routine postop
[2022-12-03 12:06] VITALS: BP 99/73; PULSE 92; RESP 20; TEMP 36.2; O2SAT 99
[2022-12-03 12:10] VITALS: BP 137/86; PULSE 83; RESP 17; O2SAT 99
[2022-12-03 12:15] VITALS: BP 120/78; PULSE 84; RESP 17; O2SAT 99
[2022-12-03 12:20] VITALS: BP 119/83; PULSE 79; RESP 20; O2SAT 99
--- NOTE | 2022-12-03 12:56 | SUR.PHASEI ---
Pt transfered to . Report called and provided to receiving nurse. Dressing to abd CDI. Minimal lochia draining. Fundus 2 fingers above umbilicus. Confirmed with nurse.
[2022-12-03] MEDS: KETOROLAC 30 MG/ML VIAL IV ×2 (17:31→23:37)
[2022-12-03] MEDS: ACETAMINOPHEN 325 MG TABLET 650 MG PO (19:59)
[2022-12-03] MEDS: LANOLIN OINT 7 GM 1 APPLIC TOP (19:59)
[2022-12-03] MEDS: OXYCODONE IR 5 MG TABLET PO ×2 (20:03→23:41)
[2022-12-04] MEDS: ACETAMINOPHEN 325 MG TABLET 650 MG PO ×4 (03:52→23:22)
[2022-12-04] MEDS: OXYCODONE IR 5 MG TABLET PO ×3 (03:52→16:57)
[2022-12-04] MEDS: KETOROLAC 30 MG/ML VIAL IV (06:34)
[2022-12-04 06:47] LABS: Add Manual Diff / Slide Review NO; Basophils Absolute Auto 0 /uL (0-100); Basophils Percent Auto 0.2 % (0-2); Eosinophils Absolute Auto 200 /uL (0-450); Eosinophils Percent Auto 1.3 % (2-4); Hematocrit 29.4 % (36-46); Hemoglobin 9.9 g/dL (12.0-16.0); Lymphocytes Absolute Auto 2000 /uL (1100-4500); Lymphocytes Percent Auto 14.7 % (25-40); Mean Corpuscular HGB Conc 33.8 % (30-36); Mean Corpuscular Hemoglobin 29.7 PG (26-34); Mean Corpuscular Volume 87.7 fL (80-100); Monocytes Absolute Auto 1000 /uL (0-900); Monocytes Percent Auto 7.4 % (3-14); Neutrophils Absolute Auto 10200 /uL (1500-7000); Neutrophils Percent Auto 76.4 % (50-75); Platelet Count 190 X10^3/uL (150-400); Red Blood Cell Count 3.35 X10^6/uL (4.0-5.2); White Blood Cell Count 13.3 X10^3/uL (4.5-11.0)
[2022-12-04] MEDS: IBUPROFEN 600 MG TABLET PO ×3 (11:23→23:22)
[2022-12-04] MEDS: DOCUSATE 100 MG CAPSULE PO (11:24)
--- NOTE | 2022-12-04 17:39 | CM.SWNOTE ---
CHIROPRACTOR SOLE PRACTITIONER Note: CHIROPRACTOR SOLE PRACTITIONER team requested for consult to assist in assessment of need and DC coordination for this 41 yo female. Patient had a c section 12/03 to baby girl. From nursing staff, mom and baby are doing well. Provider and nursing staff report mom is likely to d/c Tuesday morning. CHIROPRACTOR SOLE PRACTITIONER entered room and introduced self and role. Mom was accompanied by spouse/FOB, Maximilian Duval and , Rylie Olmos. Mom reports the [facility] [place] motel is paid for until the . They are staying on the 3rd floor (no elevator). Patient is concerned about ambulating up steps upon d/c. Mom and FOB report their daughter is currently with family friend. FOB asked questions regarding restarting Hospice or HH. CHIROPRACTOR SOLE PRACTITIONER informed that he can restart HH through his PCP. FOB reports he is working on getting established with a PCP and does not need PCP information from this author. FOB reported he wants more help caring for himself to take the burden off of mom. Mom appears to be caregiver for FOB and their other 5 year old daughter. FOB has chronic health issues and is on disability. FOB reported he has the number for Hospice and reports verbal understanding that he would have to be the one to set it up. 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 Mom reports having to wait to apply for family medical leave until she gave . Mom reports her application is pending and hey could have more funds coming within the week. Mom reports she was attempting to get unemployment prior to having baby. She was approved for 390/week but unable to access those funds due to being unable to prove actively searching for a job. Mom reports they are unable to utilize [facility] due to previous behaviors working with the agency. Mom reports that the [facility] has a week wait list and will get back to her. Mom reports she is getting $540/month with [employer]. Mom reports her mother (baby maternal grandmother) is coming from [place] to move in with them. They will all look for a place together. She will be here either Tuesday or Tuesday to assist with long term acute care registered nurse stable housing. Mom reports no current signs of depression. Mom reports concerns about falling into depression due to her last experiencing intense depression. Mom reports she believes this comes from having to return to work so quick after giving and her daughter bonding with [employer] over her. Mom adamantly denies SH/SI/HI. Mom reports having a history of bipolar 2. Mom is open to depression resources/ depression information. Mom does not want to work with [employer] due to bad experience in the past. Plan: CHIROPRACTOR SOLE PRACTITIONER will follow up first thing in morning. CHIROPRACTOR SOLE PRACTITIONER will provide any additional financial resources available. CHIROPRACTOR SOLE PRACTITIONER will provide mom with depression/other mental health counseling information. CHIROPRACTOR SOLE PRACTITIONER will follow closely and support in any way available. MANUELA Barber
[2022-12-04] MEDS: OXYCODONE IR 10 MG TABLET PO (21:24)
[2022-12-05] MEDS: OXYCODONE IR 10 MG TABLET PO ×2 (01:52→09:10)
[2022-12-05] MEDS: IBUPROFEN 600 MG TABLET PO ×2 (05:06→12:04)
[2022-12-05] MEDS: ACETAMINOPHEN 325 MG TABLET 650 MG PO ×2 (05:06→12:04)
[2022-12-05] MEDS: DOCUSATE 100 MG CAPSULE PO (09:10)
[2022-12-05] MEDS: PRENATAL VIT,CALC/IRON/FOLIC 1 TABLET 1 TAB PO (09:10)
--- NOTE | 2022-12-05 14:00 | P.DS_ITS ---
Discharge Providers Provider Date of admission: 12/02/22 19:48 Discharge Date: 12/05/22 Primary care physician: Justyna Beltran MD Consults: 12/02/22 19:55 Consult to Anesthesiology Urgent Comment: Consulting Provider: Anesthesiologist Reason for consultation: Epidural Has provider been notified: No 12/02/22 20:27 Consult to ELL TEACHER - Programming Development Project Manager Routine Comment: 12/03/22 14:57 Consult to Coding Specialist Routine Comment: Discharge provider: Tyron Casillas MD Summary Hospital Course Date Patient Seen: 12/05/22 Time Patient Seen: 14:01 Diagnoses: Intrauterine gestation, 39+ 3 weeks gestational age, delivered by primary section Advanced maternal age intolerance of labor Chronic anemia Hospital Course: Maria M was admitted for induction due to advanced maternal age on the evening of 12/02/2022. She received 2 doses Cytotec and contracted vigorously with early cervical change. Due to difficulty monitoring the patient, AROM was performed on the morning of 12/03/2022 when the patient was at 3 cm dilation and IUPC/FSE inserted/applied. Subsequent tracings with internal monitors showed repetitive early, variable, and late decelerations prompting the decision to proceed with primary delivery due to intolerance of labor. Late on the morning of 12/03/2022, patient underwent an uneventful primary delivery, the details of the procedure well summarized on Dr. Mosher's operative note of that date. Following surgery the patient and her baby have both done extremely well with the mother experiencing prompt return of bowel and bladder function, she is ambulating independently, tolerating a regular diet, and her pain is well controlled with oral pain medications. She will be discharged at this time to home in an afebrile normotensive condition after counseling regarding precautionary symptoms, limitations activity, medications, and plans for follow-up which will be in 1 week. Medications at discharge will include resumption of vitamins, oxycodone 5 mg p.o. q.6 hours as needed pain, dispense 20 with no refills. She will also use phtw-slq-lipqmii Tylenol and/or ibuprofen for additional pain relief. Patient will also continue using iron supplement daily with vitamin-C for the next 30 days. Peripartum Data Delivery Method: Natural Vaginal Laceration Description: None Episiotomy description: None Procedures: Continuous lumbar epidural Primary section (low transverse cervical) complications: none [place] 1: Gender: Female Disposition of : home Status at Discharge Cognitive/behavioral status at discharge: oriented Functional status at discharge: independent ambulation Overall status at discharge: patient is progressing back to baseline Time Spent with Patient Time attestation: Total time spent providing and/or coordinating discharge services: Objective Labs 12/04/22 06:37 Exam Vital Signs (past 8 hours): Oxygen Delivery Method Room Air Const General: cooperative and comfortable Nutritional Appearance: average body habitus Orientation: alert and oriented x3 HENMT Head: normal to inspection, atraumatic and abrasion Ears: hearing grossly normal bilaterally Face and sinus: face symmetric Eyes General: appearance normal, both eyes and all related structures Conjunctivae: conjunctivae normal Sclera: sclerae normal EOM: EOM intact bilaterally Neck Neck: normal visual inspection Resp Effort & Inspection: normal respiratory effort and able to speak in complete sentences Auscultation: clear to auscultation bilaterally Cardio Rate: regular rate Rhythm: regular rhythm Heart Sounds: S1 normal, S2 normal and no murmurs GI Inspection: normal to inspection and incision (Surgical dressing clean and dry) Palpation: soft, no hepatosplenomegaly and tender (Mild, diffuse postsurgical tenderness) External Female Exam: other (No significant bleeding noted) Extrem General: no calf tenderness Psych Appearance: grossly normal Mental Status: mental status grossly normal Speech and Movement: speech and movement normal Mood: congruent mood Affect: normal affect Attitude: cooperative Thought Process: normal Thought Content: normal Judgment: judgment good Discharge Plan Discharge Plan Patient Disposition: Home Provider Discharge Comment: Please review written information provided when you were discharged from the hospital. Your follow-up with Dr. Mosher will be one- week following your delivery. If in the meanwhile however you have any issues, concerns, or questions, please contact the office at [phone], or via the patient. Discharge orders & Medications Prescriptions: New oxycodone 5 mg Tablet 5 mg PO Q6H PRN (Reason: Pain, Moderate (4-6)) Qty: 20 0RF Continued Classic 28 mg iron- 800 mcg tablet 1 tab PO DAILY Qty: 90 3RF Follow up/Referrals: Justyna Beltran MD [Primary Care Provider] - () Discharge Health Status Multidrug resistant organism: No MDRO Diet/Activity/Treatments Diet: Diet as Tolerated Activity: As tolerated Other treatments: Xpfw-jvl-takdbey ibuprofen and/or Tylenol may be used for additional pain relief. Lilk-zjc-oeicmff stool softeners and/or MiraLax may be used as needed for constipation. Skin/Wound/Dressing Care Report to your healthcare provider any signs of infection, such as:: chills, fe kavita, increased pain, unusual drainage and unusual redness Dressing: Dressing will be removed at your 1 week postop visit Visit Report/Discharge Packet Instructions: DI for , DI for and Nipple Soreness Discharge Data Primary Care Provider: Justyna Beltran
[2022-12-05 14:12] VITALS: BP 112/61; PULSE 67; RESP 18; TEMP 36.9
--- NOTE | 2022-12-06 09:13 | CM.SWNOTE ---
DIATHERMY EQUIPMENT REPAIRER Note: Late Entry: Note for 12/05/22 DIATHERMY EQUIPMENT REPAIRER reviewed EMR. DIATHERMY EQUIPMENT REPAIRER spoke with nursing staff. Nursing staff reported family was attempting to figure out a car seat and ride. Family had told DIATHERMY EQUIPMENT REPAIRER on Tuesday that they had everything they needed for baby upon d/c. DIATHERMY EQUIPMENT REPAIRER placed a call to CPS re: impending homelessness. DIATHERMY EQUIPMENT REPAIRER gave [place] CPS worker Jeff Chauhan demographic, situational background, and additional requested information. Report #[id number]. Jeff reported there were no open cases. Jeff reported this was not an urgent referral but would be filled as informational only. DIATHERMY EQUIPMENT REPAIRER entered room. ALEXIS Yao spent a lengthy amount of time communicating his displeasure with one nurse and his appreciation for another. DIATHERMY EQUIPMENT REPAIRER directed family to complaint number if he would like to file a complaint. FOB reported they have a car seat and safe transportation for baby figured out. Family confirmed they have been living at the [facility] for two years. Family confirmed that [facility] is not available to them. MOB reported her mother would be out here within the next few days to assist them in looking for a place to stay/care for MOB and baby. DIATHERMY EQUIPMENT REPAIRER provided family with information regarding emergency financial assistance for families. Including [employer], [employer] emergency rental assistance, [facility] assistance program, [facility] voucher programs, and two different [employer] [facility] emergency financial assistance programs. DIATHERMY EQUIPMENT REPAIRER provided MOB with information for [facility], [facility] mental health, and a list of [facility] depression resources. MOB appeared appreciative for the information. MOB continues to deny feelings of depression, just stress from financial situation. MOB continues to deny SI/SH. Plan: family will d/c back to [facility] DIATHERMY EQUIPMENT REPAIRER team will continue to assist as able. MANUELA Barber
== END 2022-12-05 14:36 | disposition home or self-care (01) | DRG 540 ==
PROVIDERS: Admitting Provider Obstetrics & Gynecology; PCP Internal Medicine; Referring Provider Obstetrics & Gynecology; Visit Provider Obstetrics & Gynecology
PROC: 10D00Z1 Extraction of Products of Conception, Low, Open Approach (ICD-10-PCS; CPT 59514; principal; 2022-12-03 11:00)
DX: O76 Abnormality in fetal heart rate and rhythm complicating labor and delivery (principal); Z67.40 Type O blood, Rh positive; Z3A.39 39 weeks gestation of pregnancy; Z37.0 Single live birth; O99.324 Drug use complicating childbirth; F12.90 Cannabis use, unspecified, uncomplicated; O66.40 Failed trial of labor, unspecified; O47.1 False labor at or after 37 completed weeks of gestation; O09.523 Supervision of elderly multigravida, third trimester; O99.213 Obesity complicating pregnancy, third trimester; E66.9 Obesity, unspecified
CPT/HCPCS: 36415; 59025; 59050; 59200; 59514; 74018; 76000; 80305; 85025; 86850; 86900; 86901; 96372; G0378; G0379; J0690; J1885; J2250; J2270; J2274; J2405; J2590; J2704; J3010; J3410

== ENCOUNTER 2022-12-07 20:14 | Emergency (ER) | payer OTHER, MEDICAID, SELFPAY ==
[2022-12-07 20:08] VITALS: BP 131/75; PULSE 76; RESP 16; TEMP 36.4; O2SAT 97; BMI 33.5
--- NOTE | 2022-12-07 20:25 | ED.GENADULT ---
HPI - General Adult General Chief complaint: Abdominal Pain Stated complaint: Incision pain Time Seen by Provider: 12/07/22 20:23 Source: patient Mode of arrival: EMS Limitations: no limitations History of Present Illness HPI narrative: Patient is a 41-year-old female who is less than 1 week status post . She states she bent over just prior to arrival to clam picker a diaper bag when she states she felt like there was ripping on the right side of her incision. She is having some vaginal bleeding but it has not increased since the time. No fevers. Related Data Previous Rx's Medication Instructions Recorded vits no.126-ferrous fum 1 tab PO DAILY #90 tabs 06/14/22 28 mg iron-folic acid 800 mcg tablet (Classic ) oxycodone 5 mg tablet 5 mg PO Q6H PRN Pain, Moderate 12/05/22 (4-6) #20 tabs Allergies Allergy/AdvReac Type Severity Reaction Status Date / Time morphine AdvReac Intermediate pt felt Verified 12/07/22 20:23 like she was on fire plastic tape Allergy Mild Rash Uncoded 12/02/22 20:32 paper tape Allergy Rash Uncoded 12/02/22 20:29 Review of Systems Gastrointestinal Gastrointestinal: Reports system reviewed and no additional complaints, except as documented Genitourinary Genitourinary: Reports system reviewed and no additional complaints, except as documented Integumentary/Breasts Skin/Breast: Reports system reviewed and no additional complaints, except as documented Patient History Medical History Asthma Polycystic ovaries (10/06/15) depression Viral URI with cough Surgical History (Updated 08/17/22 @ 10:33 by Regi Holman RN) History of cholecystectomy Family History (Updated 08/17/22 @ 10:35 by Regi Holman RN) Mother Heart attack Stroke Father Diabetes mellitus Pancreatitis Sister Diabetes mellitus Family/Other Diabetes mellitus Social History marital status: unmarried,living together number of children: 1 household members: significant other (ex-) and children lives independently: Yes caregiver/support person: Yes housing: other (hotel) pets and animals: Yes (1 dog) education level: college (some college) 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) current occupational exposures/hazards: No special benjamin needs: No travel history: over 6 months ago seatbelt use: sometimes water heater temp set < 120 deg: Yes working smoke detector in home: Yes fire extinguisher in home: Yes carbon monox detector in home: Yes firearms in home: No do you feel safe at home: Yes Smoking Status: Former smoker Tobacco: How many years used: 18 second hand exposure: Yes (s/o smokes, but not around pt or daughter) alcohol intake: former (~3-4/week when not ) substance use type: marijuana (not interested in quitting) during the past year weight has: increased > 10 lbs well-balanced diet: rarely or never daily servings fruits/ve-1 caffeine: Yes (occasional coffee/soda, not every day) Type(s) of exercise: walking frequency: daily duration: < 15 minutes/day Smoking Status: Former smoker alcohol intake frequency: holidays/special occasions only Substance Use Type: marijuana Exam Initial Vital Signs Initial Vital Signs: Vital Signs Temperature 97.6 F 12/07/22 20:08 Pulse Rate 76 12/07/22 20:08 Respiratory Rate 16 12/07/22 20:08 Blood Pressure 131/75 12/07/22 20:08 Pulse Oximetry 97 12/07/22 20:08 Oxygen Delivery Method Room Air 12/07/22 20:08 GI Other: Abdomen is soft. Lower abdominal surgical incision is in place. Other: Patient does have a small amount of dried vaginal bleeding. Skin Other: I did remove just the right portion of the bandage that was covering the surgical incision. It appears well. There is no dehiscence. There is no bleeding. Course Vital Signs Vital signs: Vital Signs - 8 hr 12/07/22 20:08 Temperature 97.6 F Pulse Rate 76 Respiratory Rate 16 Blood Pressure 131/75 Pulse Oximetry 97 Oxygen Delivery Method Room Air Medical Decision Making MDM Narrative Medical decision making narrative: Surgical incision looks well. No signs of dehiscence. Abdomen is soft. No increase in vaginal bleeding. No indication for further radiologic studies. He potentially could have torn some developing scar tissue or potentially even have pulled a subcutaneous stitch however the no further workup required here in the ER. She already has a scheduled follow-up appointment with her instructional manager provider. She was given return precautions. She expressed understanding and agreement. Discharge Plan Departure Patient Disposition: Home Clinical Impression: Post-operative pain Activity Restrictions/Additional Instructions: I recommend that you continue to fall all of the instructions given to you by the perforator loader. Keep all of your scheduled medical appointments. Return to the emergency department for new or worsening symptoms. Prescriptions: No Action Classic 28 mg iron- 800 mcg tablet 1 tab PO DAILY Qty: 90 3RF oxycodone 5 mg Tablet 5 mg PO Q6H PRN (Reason: Pain, Moderate (4-6)) Qty: 20 0RF Referrals: Justyna Beltran MD [Primary Care Provider] - Stand Alone Forms: Patient Portal/API
== END 2022-12-07 21:09 | disposition home or self-care (01) ==
PROVIDERS: Emergency Provider Emergency Medicine; PCP Internal Medicine
DX: O90.89 Other complications of the puerperium, not elsewhere classified (principal); G89.18 Other acute postprocedural pain
CPT/HCPCS: 99281; 99282

== ENCOUNTER 2022-12-14 14:21 | Emergency (ER) | payer OTHER, MEDICAID, SELFPAY ==
[2022-12-14 14:50] VITALS: BP 109/69; PULSE 46; RESP 12; TEMP 36.6; O2SAT 99; BMI 35.2
--- NOTE | 2022-12-14 15:12 | DI.US.S_ITS ---
PROCEDURE: US PELVIC COMPLETE INDICATIONS: PAIN 11 DAYS POST TECHNIQUE: Real-time scanning was performed of the pelvic organs, with image documentation. Additional endovaginal scanning was necessary due to incomplete visualization of the adnexal and endometrial structures by transabdominal scanning. COMPARISON: [facility], US, US PELVIC COMPLETE, 05/20/2020, 12:00. [facility], US, US OB >= 14 WEEKS FETUS, 10/06/2022, 15:45. FINDINGS: Uterus: Uterus is anteverted and enlarged in size measuring 13.6 x 9.4 x 10.8 cm. The myometrium is heterogeneous. The endometrium measures 24.3 mm combined thickness. No clearly identified increased vascularity Ovaries: Not visualized. Other: No pathologic free abdominal or pelvic fluid. IMPRESSION: Uterus is enlarged consistent with history. Endometrial complex is heterogeneous. No definitive areas of increased vascularity. If concern persists for retained products of conception, interval follow-up is recommended. We strive to produce accurate, complete, and clear reports of imaging services. To assist us in improving patient care, this report was composed using standard report templates and voice recognition software. Therefore, it may contain abnormal punctuation, insertions and/or omissions. Occasional wrong-word or sound-alike substitutions may occur. Though we review the report and make efforts to correct it, we do recommend that the report be read carefully in proper context to recognize any text inaccuracies. Dictated by: Melani Rizzo M.D. on 12/14/2022 at 17:25 Approved by: Melani Rizzo M.D. on 12/14/2022 at 17:26
[2022-12-14 15:30] LABS: Add Manual Diff / Slide Review NO; Basophils Absolute Auto 100 /uL (0-100); Basophils Percent Auto 0.9 % (0-2); Eosinophils Absolute Auto 300 /uL (0-450); Hematocrit 37.2 % (36-46); Hemoglobin 12.8 g/dL (12.0-16.0); Lymphocytes Absolute Auto 2500 /uL (1100-4500); Lymphocytes Percent Auto 37.6 % (25-40); Mean Corpuscular HGB Conc 34.4 % (30-36); Mean Corpuscular Hemoglobin 29.8 PG (26-34); Mean Corpuscular Volume 86.4 fL (80-100); Monocytes Absolute Auto 500 /uL (0-900); Monocytes Percent Auto 7.5 % (3-14); Neutrophils Absolute Auto 3300 /uL (1500-7000); Platelet Count 388 X10^3/uL (150-400); Red Blood Cell Count 4.31 X10^6/uL (4.0-5.2); White Blood Cell Count 6.8 X10^3/uL (4.5-11.0)
[2022-12-14 15:38] LABS: Prothrombin Time 11.5 SECONDS (10.1-12.7)
[2022-12-14 15:40] LABS: PTT Partial Thromboplastin Tim 37 SECONDS (26-36)
[2022-12-14 15:42] LABS: Alanine Aminotransferase 39 IU/L (<35); Albumin 3.8 g/dL (3.5-5.0); Albumin Globulin Ratio 1.1 (1.0-2.8); Alkaline Phosphatase 118 U/L (38-126); Aspartate Aminotransferase 41 IU/L (14-36); BUN Creatinine Ratio 17.2 (6-22); Bilirubin Total 0.4 mg/dL (0.2-1.3); Blood Urea Nitrogen 16 mg/dL (7-17); Calcium 8.6 mg/dL (8.4-10.2); Carbon Dioxide 27 mmol/L (22-32); Chloride 106 mmol/L (98-107); Estimated Glomerular Filt Rate > 60 mL/min (>60); Globulin 3.5 g/dL (1.7-4.1); Glucose 85 mg/dL (70-100); HEMOLYSIS < 15 (0-50); Lipase 105 U/L (23-300); Potassium 4.1 mmol/L (3.4-5.1); Sodium 140 mmol/L (137-145); Total Protein 7.3 g/dL (6.3-8.2)
[2022-12-14 16:17] LABS: Bacteria Urine Occasional (0-1); Culture Indicated Urine Cult Not Indicated; RBC Urine 30-100/HPF (0-5/HPF); Squamous Epithelial Cell Urine 0-1 /HPF (0-5/HPF); WBC Urine 0-1/HPF (0-5/HPF)
--- NOTE | 2022-12-14 17:27 | ED_ITS ---
HPI - Abdominal Pain <Deanna Sims PA-C - Last Filed: 12/14/22 17:44> General Chief Complaint: Abdominal Pain Stated Complaint: had on the 7th needs wound looked at Time Seen by Provider: 12/14/22 15:12 Source: patient Mode of arrival: Ambulatory History of Present Illness HPI narrative: 41-year-old female who is recently , delivered a baby on 12/03/2022 by . Patient is a patient of Dr. Mosher. Patient states that she has been unable to get much rest, has been physically very active, states that since yesterday she is had some left-sided pelvic pain. Patient states that she does not feel the pain at the site of the incision but rather feels like it is intra- abdominal. Patient denies fever, chills, nausea, vomiting, diarrhea, constipation, lightheadedness, dizziness, syncope. Related Data Previous Rx's Medication Instructions Recorded vits no.126-ferrous fum 1 tab PO DAILY #90 tabs 06/14/22 28 mg iron-folic acid 800 mcg tablet (Classic ) oxycodone 5 mg tablet 5 mg PO Q6H PRN Pain, Moderate 12/05/22 (4-6) #20 tabs Allergies Allergy/AdvReac Type Severity Reaction Status Date / Time morphine AdvReac Intermediate pt felt Verified 12/07/22 20:23 like she was on fire plastic tape Allergy Mild Rash Uncoded 12/02/22 20:32 paper tape Allergy Rash Uncoded 12/02/22 20:29 Review of Systems <Deanna Sims PA-C - Last Filed: 12/14/22 17:44> Review of Systems ROS Unobtainable: All systems reviewed & are unremarkable except as noted in HPI and below Constitutional Constitutional: Denies chills, Denies fatigue, Denies fever(s), Denies frequent falls, Denies lethargy and Denies weakness Eyes Eyes: Denies change in vision, Denies eye discharge, Denies irritation and Denies loss of vision ENT Ears, Nose, Mouth, and Throat: Denies change in voice, Denies dizziness, Denies neck pain, Denies sore throat and Denies throat swelling Cardiovascular Cardiovascular: Denies chest pain, Denies irregular heart rhythm, Denies lig htheadedness, Denies palpitations, Denies dyspnea, Denies dyspnea on exertion and Denies orthopnea Respiratory Respiratory: Denies cough, Denies dyspnea, Denies dyspnea on exertion and Denies wheezing Gastrointestinal Gastrointestinal: Denies abdominal pain, Denies change in bowel habits, Denies diarrhea, Denies nausea and Denies vomiting Genitourinary Genitourinary: Denies hematuria, Reports pelvic pain, Denies flank pain, Denies urinary incontinence and Denies urinary urgency Musculoskeletal Musculoskeletal: Denies back pain, Denies muscle weakness, Denies neck pain, Denies numbness and Denies tingling Integumentary/Breasts Skin/Breast: Denies pruritus, Denies erythema, Denies rash and Denies wounds Neurologic Neurologic: Denies behavioral changes, Denies confusion, Denies dizziness, Denies frequent falls, Denies loss of vision, Denies numbness, Denies tingling and Denies weakness Psychiatric Psychiatric: Denies anxiety, Denies behavioral changes, Denies confusion, Denies depression, Denies homicidal ideation and Denies suicidal ideation Endocrine Endocrine: Denies fatigue, Denies flushing and Denies palpitations Hematologic/Lymphatic Hematologic/Lymphatic: Denies easy bruising Allergic/Immunologic Allergic/Immunologic: Denies urticaria, Denies throat swelling and Denies wheezing Patient History <Deanna Sims PA-C - Last Filed: 12/14/22 17:44> Medical History Asthma Polycystic ovaries (10/06/15) depression Viral URI with cough Surgical History History of cholecystectomy Family History Mother Heart attack Stroke Father Diabetes mellitus Pancreatitis Sister Diabetes mellitus Family/Other Diabetes mellitus Social History marital status: unmarried,living together number of children: 1 household members: significant other (ex-) and children lives independently: Yes caregiver/support person: Yes housing: other (hotel) pets and animals: Yes (1 dog) education level: college (some college) 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) current occupational exposures/hazards: No special benjamin needs: No travel history: over 6 months ago seatbelt use: sometimes water heater temp set < 120 deg: Yes working smoke detector in home: Yes fire extinguisher in home: Yes carbon monox detector in home: Yes firearms in home: No do you feel safe at home: Yes Smoking Status: Former smoker Tobacco: How many years used: 18 second hand exposure: Yes (s/o smokes, but not around pt or daughter) alcohol intake: former (~3-4/week when not ) substance use type: marijuana (not interested in quitting) during the past year weight has: increased > 10 lbs well-balanced diet: rarely or never daily servings fruits/ve-1 caffeine: Yes (occasional coffee/soda, not every day) Type(s) of exercise: walking frequency: daily duration: < 15 minutes/day Smoking Status: Former smoker alcohol intake frequency: holidays/special occasions only Substance Use Type: marijuana Exam <Deanna Sims PA-C - Last Filed: 12/14/22 17:44> Narrative Exam Narrative: Const General:?cooperative, healthy appearing and comfortable [facility] [place] Head:?normal to inspection Ears:?hearing grossly normal bilaterally Nose:?external nose normal Face and sinus:?normal facial exam and sinuses nontender Mouth:?oral mucosae normal Throat:?posterior oropharynx normal Eyes General:?appearance normal, both eyes and all related structures Neck Neck:?normal visual inspection and no lymphadenopathy noted Resp Effort & Inspection:?normal respiratory effort Auscultation:?clear to auscultation bilaterally Cardio Rate:?regular rate Rhythm:?regular rhythm GI Abdomen is soft, distended but per status. No tenderness to palpation. Neuro General:?patient alert, patient awake and patient oriented x3 Initial Vital Signs Initial Vital Signs: Vital Signs Temperature 97.8 F 12/14/22 14:50 Pulse Rate 46 L 12/14/22 14:50 Respiratory Rate 12 12/14/22 14:50 Blood Pressure 109/69 12/14/22 14:50 Pulse Oximetry 99 12/14/22 14:50 Oxygen Delivery Method Room Air 12/14/22 14:50 <Juliana Ghosh DO - Last Filed: 12/17/22 07:55> Initial Vital Signs Initial Vital Signs: Vital Signs Temperature 97.8 F 12/14/22 14:50 Pulse Rate 46 L 12/14/22 14:50 Respiratory Rate 12 12/14/22 14:50 Blood Pressure 109/69 12/14/22 14:50 Pulse Oximetry 99 12/14/22 14:50 Oxygen Delivery Method Room Air 12/14/22 14:50 Course <Deanna Sims PA-C - Last Filed: 12/14/22 17:44> Orders Ordered: ED Orders 12/14/22 15:01 Urine Microscopic Stat 12/14/22 15:12 US pelvic complete Stat 12/14/22 15:22 CBC Auto Diff [Complete Blood Count AUTO DIFF] Stat CMP [Comprehensive Metabolic Panel] Stat Lipase Stat PT [Prothrombin Time INR] Stat PTT [PTT Partial Thromboplastin Nickolas] Stat Vital Signs Vital signs: Vital Signs - 8 hr 12/14/22 14:50 12/14/22 17:38 Temperature 97.8 F Pulse Rate 46 L 54 L Respiratory Rate 12 18 Blood Pressure 109/69 111/72 Pulse Oximetry 99 100 Oxygen Delivery Method Room Air Room Air <Juliana Ghosh DO - Last Filed: 12/17/22 07:55> Orders Ordered: ED Orders 12/14/22 15:01 Urine Microscopic Stat 12/14/22 15:12 US pelvic complete Stat 12/14/22 15:22 CBC Auto Diff [Complete Blood Count AUTO DIFF] Stat CMP [Comprehensive Metabolic Panel] Stat Lipase Stat PT [Prothrombin Time INR] Stat PTT [PTT Partial Thromboplastin Nickolas] Stat Vital Signs Vital signs: Vital Signs - 8 hr 12/14/22 14:50 12/14/22 17:38 Temperature 97.8 F Pulse Rate 46 L 54 L Respiratory Rate 12 18 Blood Pressure 109/69 111/72 Pulse Oximetry 99 100 Oxygen Delivery Method Room Air Room Air MDM - Abdominal Pain <KAI Lya Last Filed: 12/14/22 17:44> Lab Data 12/14/22 15:22 12/14/22 15:22 Labs: Lab Results 12/14/22 12/14/22 12/14/22 Range/Units 15:01 15:22 15:22 WBC 6.8 (4.5-11.0) X10^3/uL RBC 4.31 (4.0-5.2) X10^6/uL Hgb 12.8 (12.0-16.0) g/dL Hct 37.2 (36-46) % MCV 86.4 (80-100) fL MCH 29.8 (26-34) PG MCHC 34.4 (30-36) % RDW 13.0 (11.6-14.8) % Plt Count 388 (150-400) X10^3/uL Neut % (Auto) 49.0 L (50-75) % Lymph % (Auto) 37.6 (25-40) % Ross % (Auto) 7.5 (3-14) % Eos % (Auto) 5.0 H (2-4) % Baso % (Auto) 0.9 (0-2) % Neut # (Auto) 3300 (9286-4894) /uL Lymph # (Auto) 2500 (6393-8800) /uL Ross # (Auto) 500 (0-900) /uL Eos # (Auto) 300 (0-450) /uL Baso # (Auto) 100 (0-100) /uL PT 11.5 (10.1-12.7) SECONDS INR 1.0 (0.9-1.3) APTT 37 H (26-36) SECONDS Sodium (137-145) mmol/L Potassium (3.4-5.1) mmol/L Chloride (98-107) mmol/L Carbon Dioxide (22-32) mmol/L BUN (7-17) mg/dL Creatinine (0.52-1.04) mg/dL Estimated GFR (>60) mL/min BUN/Creatinine Ratio (6-22) Glucose (70-100) mg/dL Calcium (8.4-10.2) mg/dL Total Bilirubin (0.2-1.3) mg/dL AST (14-36) IU/L ALT (<35) IU/L Alkaline Phosphatase (38-126) U/L Total Protein (6.3-8.2) g/dL Albumin (3.5-5.0) g/dL Globulin (1.7-4.1) g/dL Albumin/Globulin Ratio (1.0-2.8) Lipase (23-300) U/L Urine RBC 30-100/hpf H (0-5/HPF) Urine WBC 0-1/hpf (0-5/HPF) Ur Squamous Epith Cells 0-1 /hpf (0-5/HPF) Urine Bacteria Occasional (0-1) (None) Ur Culture Indicated? Cult not indicated 12/14/22 Range/Units 15:22 WBC (4.5-11.0) X10^3/uL RBC (4.0-5.2) X10^6/uL Hgb (12.0-16.0) g/dL Hct (36-46) % MCV (80-100) fL MCH (26-34) PG MCHC (30-36) % RDW (11.6-14.8) % Plt Count (150-400) X10^3/uL Neut % (Auto) (50-75) % Lymph % (Auto) (25-40) % Ross % (Auto) (3-14) % Eos % (Auto) (2-4) % Baso % (Auto) (0-2) % Neut # (Auto) (5624-5442) /uL Lymph # (Auto) (5561-9324) /uL Ross # (Auto) (0-900) /uL Eos # (Auto) (0-450) /uL Baso # (Auto) (0-100) /uL PT (10.1-12.7) SECONDS INR (0.9-1.3) APTT (26-36) SECONDS Sodium 140 (137-145) mmol/L Potassium 4.1 (3.4-5.1) mmol/L Chloride 106 (98-107) mmol/L Carbon Dioxide 27 (22-32) mmol/L BUN 16 (7-17) mg/dL Creatinine 0.93 (0.52-1.04) mg/dL Estimated GFR > 60 (>60) mL/min BUN/Creatinine Ratio 17.2 (6-22) Glucose 85 (70-100) mg/dL Calcium 8.6 (8.4-10.2) mg/dL Total Bilirubin 0.4 (0.2-1.3) mg/dL AST 41 H (14-36) IU/L ALT 39 H (<35) IU/L Alkaline Phosphatase 118 (38-126) U/L Total Protein 7.3 (6.3-8.2) g/dL Albumin 3.8 (3.5-5.0) g/dL Globulin 3.5 (1.7-4.1) g/dL Albumin/Globulin Ratio 1.1 (1.0-2.8) Lipase 105 (23-300) U/L Urine RBC (0-5/HPF) Urine WBC (0-5/HPF) Ur Squamous Epith Cells (0-5/HPF) Urine Bacteria (None) Ur Culture Indicated? Point of care testing: Urine Dip Bedside Urine Glucose Negative Bedside Urine Bilirubin - Negative Bedside Urine Ketone - Negative Urine Specific Stevenson 1.020 Bedside Urine Occult Blood +++ Bedside Urine pH 6.0 Bedside Urine Protein - Negative Bedside Urine Urobilinogen - Negative Bedside Urine Nitrite - Negative Bedside Urine Leukocytes - Negative Esterase MDM Narrative Medical decision making narrative: 41-year-old female who is recently , delivered a baby on 12/03/2022 by . Concern for retained products of conception versus uterine bleeding versus UTI versus constipation versus other. Obtained labs, urine, pelvic ultrasound. Workup largely unremarkable. Labs within normal limits. UA without UTI. Pelvic ultrasound without acute findings. Will discharge home with dmitry mmendation for more rest, follow-up with Dr. Mosher. ED return precautions discussed with patient. Patient verbalized understanding. <Juliana Ghosh, DO - Last Filed: 12/17/22 07:55> Lab Data Labs: Lab Results 12/14/22 12/14/22 12/14/22 Range/Units 15:01 15:22 15:22 WBC 6.8 (4.5-11.0) X10^3/uL RBC 4.31 (4.0-5.2) X10^6/uL Hgb 12.8 (12.0-16.0) g/dL Hct 37.2 (36-46) % MCV 86.4 (80-100) fL MCH 29.8 (26-34) PG MCHC 34.4 (30-36) % RDW 13.0 (11.6-14.8) % Plt Count 388 (150-400) X10^3/uL Neut % (Auto) 49.0 L (50-75) % Lymph % (Auto) 37.6 (25-40) % Ross % (Auto) 7.5 (3-14) % Eos % (Auto) 5.0 H (2-4) % Baso % (Auto) 0.9 (0-2) % Neut # (Auto) 3300 (1875-5721) /uL Lymph # (Auto) 2500 (3488-8982) /uL Ross # (Auto) 500 (0-900) /uL Eos # (Auto) 300 (0-450) /uL Baso # (Auto) 100 (0-100) /uL PT 11.5 (10.1-12.7) SECONDS INR 1.0 (0.9-1.3) APTT 37 H (26-36) SECONDS Sodium (137-145) mmol/L Potassium (3.4-5.1) mmol/L Chloride (98-107) mmol/L Carbon Dioxide (22-32) mmol/L BUN (7-17) mg/dL Creatinine (0.52-1.04) mg/dL Estimated GFR (>60) mL/min BUN/Creatinine Ratio (6-22) Glucose (70-100) mg/dL Calcium (8.4-10.2) mg/dL Total Bilirubin (0.2-1.3) mg/dL AST (14-36) IU/L ALT (<35) IU/L Alkaline Phosphatase (38-126) U/L Total Protein (6.3-8.2) g/dL Albumin (3.5-5.0) g/dL Globulin (1.7-4.1) g/dL Albumin/Globulin Ratio (1.0-2.8) Lipase (23-300) U/L Urine RBC 30-100/hpf H (0-5/HPF) Urine WBC 0-1/hpf (0-5/HPF) Ur Squamous Epith Cells 0-1 /hpf (0-5/HPF) Urine Bacteria Occasional (0-1) (None) Ur Culture Indicated? Cult not indicated 12/14/22 Range/Units 15:22 WBC (4.5-11.0) X10^3/uL RBC (4.0-5.2) X10^6/uL Hgb (12.0-16.0) g/dL Hct (36-46) % MCV (80-100) fL MCH (26-34) PG MCHC (30-36) % RDW (11.6-14.8) % Plt Count (150-400) X10^3/uL Neut % (Auto) (50-75) % Lymph % (Auto) (25-40) % Ross % (Auto) (3-14) % Eos % (Auto) (2-4) % Baso % (Auto) (0-2) % Neut # (Auto) (5623-3396) /uL Lymph # (Auto) (6922-1155) /uL Ross # (Auto) (0-900) /uL Eos # (Auto) (0-450) /uL Baso # (Auto) (0-100) /uL PT (10.1-12.7) SECONDS INR (0.9-1.3) APTT (26-36) SECONDS Sodium 140 (137-145) mmol/L Potassium 4.1 (3.4-5.1) mmol/L Chloride 106 (98-107) mmol/L Carbon Dioxide 27 (22-32) mmol/L BUN 16 (7-17) mg/dL Creatinine 0.93 (0.52-1.04) mg/dL Estimated GFR > 60 (>60) mL/min BUN/Creatinine Ratio 17.2 (6-22) Glucose 85 (70-100) mg/dL Calcium 8.6 (8.4-10.2) mg/dL Total Bilirubin 0.4 (0.2-1.3) mg/dL AST 41 H (14-36) IU/L ALT 39 H (<35) IU/L Alkaline Phosphatase 118 (38-126) U/L Total Protein 7.3 (6.3-8.2) g/dL Albumin 3.8 (3.5-5.0) g/dL Globulin 3.5 (1.7-4.1) g/dL Albumin/Globulin Ratio 1.1 (1.0-2.8) Lipase 105 (23-300) U/L Urine RBC (0-5/HPF) Urine WBC (0-5/HPF) Ur Squamous Epith Cells (0-5/HPF) Urine Bacteria (None) Ur Culture Indicated? Point of care testing: Urine Dip Bedside Urine Glucose Negative Bedside Urine Bilirubin - Negative Bedside Urine Ketone - Negative Urine Specific Stevenson 1.020 Bedside Urine Occult Blood +++ Bedside Urine pH 6.0 Bedside Urine Protein - Negative Bedside Urine Urobilinogen - Negative Bedside Urine Nitrite - Negative Bedside Urine Leukocytes - Negative Esterase Discharge Plan Departure Patient Disposition: Home Clinical Impression: Abdominal pain Instructions: DI for Abdominal Pain-Adult Activity Restrictions/Additional Instructions: You were evaluated in the ED today for some abdominal pain. Your labs, urine, ultrasound were normal today. It is possible that you have some abdominal pain from constipation versus physical activity after the surgery. You may take MiraLax nightly for constipation. Please drink a lot of water as well. You follow-up with your PCP and Dr. Mosher as scheduled. If symptoms worsen, please return to the ED. Prescriptions: No Action Classic 28 mg iron- 800 mcg tablet 1 tab PO DAILY Qty: 90 3RF oxycodone 5 mg Tablet 5 mg PO Q6H PRN (Reason: Pain, Moderate (4-6)) Qty: 20 0RF Referrals: Justyna Beltran MD [Primary Care Provider] - Stand Alone Forms: Patient Portal/API <Juliana Ghosh DO - Last Filed: 12/17/22 07:55> Cosign ED Attending Kishan Attestation: I was immediately available in the department for consultation. Documentation has been reviewed.
[2022-12-14 17:38] VITALS: BP 111/72; PULSE 54; RESP 18; O2SAT 100
== END 2022-12-14 17:43 | disposition home or self-care (01) ==
PROVIDERS: Emergency Provider Student in an Organized Health Care Education/Training Program; PCP Internal Medicine
DX: R10.2 Pelvic and perineal pain (principal)
CPT/HCPCS: 36415; 76830; 76856; 80053; 81003; 81015; 83690; 85025; 85610; 85730; 99282; 99284

== ENCOUNTER 2023-09-12 20:12 | Emergency (ER) | payer OTHER, MEDICAID, SELFPAY ==
[2023-09-12 20:28] VITALS: BP 163/86; PULSE 68; RESP 16; TEMP 36.3; O2SAT 96; BMI 37.8
--- NOTE | 2023-09-12 22:37 | ED.DENTAL ---
HPI - Dental/Oral General Chief complaint: Dental/Oral Stated complaint: Tooth Cracked Time Seen by Provider: 09/12/23 22:13 Source: patient Mode of arrival: Ambulatory History of Present Illness HPI Narrative: 42yoF presents for dental pain. She has had a broken molar tooth on the lower right jaw for 2 weeks. She has been taking motrin with modest relief. Patient states the pain is driving her crazy and she can't sleep. She has an appointment with a dentist tomorrow afternoon. Related Data Previous Rx's Medication Instructions Recorded vits no.126-ferrous fum 1 tab PO DAILY #90 tabs 06/14/22 28 mg iron-folic acid 800 mcg tablet (Classic ) oxycodone 5 mg tablet 5 mg PO Q6H PRN Pain, Moderate 12/05/22 (4-6) #20 tabs amoxicillin 875 mg-potassium 1 tab PO Q12H #20 tabs 09/12/23 clavulanate 125 mg tablet Allergies Allergy/AdvReac Type Severity Reaction Status Date / Time morphine AdvReac Intermediate pt felt Verified 12/07/22 20:23 like she was on fire plastic tape Allergy Mild Rash Uncoded 12/02/22 20:32 paper tape Allergy Rash Uncoded 12/02/22 20:29 Review of Systems Review of Systems Narrative: See HPI Patient History Medical History depression Asthma Viral URI with cough Polycystic ovaries (10/06/15) Surgical History History of cholecystectomy Family History Mother Heart attack Stroke Father Diabetes mellitus Pancreatitis Sister Diabetes mellitus Family/Other Diabetes mellitus Social History marital status: unmarried,living together number of children: 1 household members: significant other (ex-) and children lives independently: Yes caregiver/support person: Yes housing: other (hotel) pets and animals: Yes (1 dog) education level: college (some college) 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) current occupational exposures/hazards: No special benjamin needs: No travel history: over 6 months ago seatbelt use: sometimes water heater temp set < 120 deg: Yes working smoke detector in home: Yes fire extinguisher in home: Yes carbon monox detector in home: Yes firearms in home: No do you feel safe at home: Yes Smoking Status: Current every day smoker Tobacco: How many years used: 18 second hand exposure: Yes (s/o smokes, but not around pt or daughter) alcohol intake: former (~3-4/week when not ) substance use type: marijuana (not interested in quitting) during the past year weight has: increased > 10 lbs well-balanced diet: rarely or never daily servings fruits/ve-1 caffeine: Yes (occasional coffee/soda, not every day) Type(s) of exercise: walking frequency: daily duration: < 15 minutes/day Smoking Status: Current every day smoker tobacco type: cigarettes alcohol intake frequency: holidays/special occasions only Substance Use Type: marijuana Exam Initial Vital Signs Initial Vital Signs: Vital Signs Temperature 97.4 F L 09/12/23 20:28 Pulse Rate 68 09/12/23 20:28 Respiratory Rate 16 09/12/23 20:28 Blood Pressure 163/86 H 09/12/23 20:28 Pulse Oximetry 96 09/12/23 20:28 Oxygen Delivery Method Room Air 09/12/23 20:28 Const: Awake, alert, no acute distress, nontoxic appearing Mouth: Dental caries, cracked right lower molar, no trismus, no facial swelling Skin: Warm, Dry, intact, no rashes Neuro: AO x3, CN II-XII grossly intact, moves all extremities Procedures Nerve Block Nerve Block 1: Time out performed: Yes Local Anesthetic: bupivacaine 0.25% and with epi Amount of anesthesia used (mL): 3 Side: right Intraoral Nerve Block: inferior alveolar Procedure Successful: Yes Patient Tolerated Procedure: Well and No complications Complications: none Course Orders Ordered: Discontinued Medications Hydrocodone Bitart/Acetaminophen (Hydrocodone/Acet 5/325 Prepack) 1 bottle MISC DIRECTED ONE Stop: 09/12/23 22:38 Last Admin: 09/12/23 22:49 Dose: 1 bottle Documented By: PINA Amoxicillin/Clavulanate Potassium (Amoxicillin/Clav 875/125 Mg) 1 tab PO NOW ONE Stop: 09/12/23 22:38 Last Admin: 09/12/23 22:50 Dose: 1 tab Documented By: PINA Vital Signs Vital signs: Vital Signs - 8 hr 09/12/23 20:28 Temperature 97.4 F L Pulse Rate 68 Respiratory Rate 16 Blood Pressure 163/86 H Pulse Oximetry 96 Oxygen Delivery Method Room Air MDM - Dental/Oral Differential Diagnosis Differential diagnosis: Likely gingival abscess, dental caries and toothache MDM Narrative Medical decision making narrative: Dental pain from a cracked molar. Given inferior alveolar nerve block with resolution of pain. Given Kell prepack for tomorrow while she waits for her dental appointment. She was counseled to take Tylenol and ibuprofen before going to bed tonight. Started on Augmentin for infection. Discharge Plan Departure Patient Disposition: Home Clinical Impression: Dental infection Instructions: DI for Dental Pain Activity Restrictions/Additional Instructions: Take Tylenol and Motrin before you go to bed tonight. Use the pain medication prepack tomorrow until you see your dentist. Take no more than 4000 mg of Tylenol per day. Prescriptions: New amoxicillin-pot clavulanate 875-125 mg tablet 1 tab PO Q12H Qty: 20 0RF No Action Classic 28 mg iron- 800 mcg tablet 1 tab PO DAILY Qty: 90 3RF oxycodone 5 mg Tablet 5 mg PO Q6H PRN (Reason: Pain, Moderate (4-6)) Qty: 20 0RF Referrals: Justyna Beltran MD [Primary Care Provider] - Stand Alone Forms: Patient Portal/API
[2023-09-12] MEDS: HYDROCODONE/ACET 5/325 PREPACK 1 BOTTLE MISC (22:49)
[2023-09-12] MEDS: AMOXICILLIN/CLAV 875/125 MG 1 TAB PO (22:50)
== END 2023-09-12 23:14 | disposition home or self-care (01) ==
PROVIDERS: Emergency Provider Emergency Medicine; PCP Internal Medicine
DX: K04.7 Periapical abscess without sinus (principal)
CPT/HCPCS: 64400; 99283

== ENCOUNTER → 2023-11-14 16:23 | Outpatient (CLI) | payer OTHER, MEDICAID, SELFPAY ==
[2023-11-14 17:18] LABS: Influenza A - CEPHEID Flu A NEGATIVE (NEGATIVE); Influenza B - CEPHEID Flu B NEGATIVE (NEGATIVE); Respiratory Syncytial Virus Negative (Negative)
[2023-11-14 17:21] LABS: COVID-19 CEPHEID 4-PLEX PCR Negative (Negative)
== END ==
PROVIDERS: PCP Internal Medicine; Visit Provider Physician Assistant Surgical
DX: R05.9 Cough, unspecified (principal); J02.9 Acute pharyngitis, unspecified
CPT/HCPCS: 87635; 87400 ×2; 87420; 0241U; 87070; 87880

== ENCOUNTER 2023-11-19 00:20 | Emergency (ER) | payer OTHER, MEDICAID, SELFPAY ==
[2023-11-19 00:27] VITALS: BP 128/72; PULSE 92; RESP 18; TEMP 36.6; O2SAT 97; BMI 36.2
--- NOTE | 2023-11-19 04:09 | ED.EAR ---
HPI - Ear Problem General Chief complaint: Ear Stated complaint: right ear pain Time Seen by Provider: 11/19/23 03:40 Source: patient Mode of arrival: Ambulatory Limitations: no limitations History of Present Illness HPI Narrative: 42-year-old female who comes in with complaint of right ear fullness and muffled hearing on the right. It has been approximately a week. Patient denies fevers. Had a little bit of sore throat, little bit of nonproductive cough. Patient did prior ear infections remotely. Has scarring on her eardrum. She states it was painful when she was seen in the walk-in clinic and they placed a speculum but has otherwise not been painful but does feel very full like her ear isn't draining. Patient states has been increasing over time. She was started on amoxicillin by the walk-in clinic several days ago she has been taking it regularly. She was given ipratropium nasal spray but has not used it. Has not been taking any antihistamines. No reported fevers. No chest pain or shortness of breath, no nausea or vomiting. Patient's 2 children have also been sick recently with upper respiratory symptoms. Patient states not on any daily medications otherwise. Allergic to morphine. Patient does use tobacco. Related Data Previous Rx's Medication Instructions Recorded amoxicillin 875 mg-potassium 1 tab PO Q12H 7 days #14 tabs 11/14/23 clavulanate 125 mg tablet ipratropium bromide 21 mcg (0.03 2 spray intranasal BID PRN nasal 11/14/23 %) nasal spray congestion #30 mL fluticasone propionate 50 1 spray intranasal BID #16 grams 11/19/23 mcg/actuation nasal spray,suspension (Aller-Brett) Allergies Allergy/AdvReac Type Severity Reaction Status Date / Time morphine AdvReac Intermediate pt felt Verified 11/14/23 16:21 like she was on fire plastic tape Allergy Mild Rash Uncoded 11/14/23 16:21 paper tape Allergy Rash Uncoded 11/14/23 16:21 Review of Systems Review of Systems ROS Unobtainable: All systems reviewed & are unremarkable except as noted in HPI and below Patient History Medical History depression Asthma Viral URI with cough Polycystic ovaries (10/06/15) Surgical History History of cholecystectomy Family History Mother Heart attack Stroke Father Diabetes mellitus Pancreatitis Sister Diabetes mellitus Family/Other Diabetes mellitus Social History marital status: unmarried,living together number of children: 1 household members: significant other (ex-) and children lives independently: Yes caregiver/support person: Yes housing: other (hotel) pets and animals: Yes (1 dog) education level: college (some college) occupational status: employed ([employer]) current occupational exposures/hazards: No special benjamin needs: No travel history: over 6 months ago seatbelt use: sometimes water heater temp set < 120 deg: Yes working smoke detector in home: Yes fire extinguisher in home: Yes carbon monox detector in home: Yes firearms in home: No do you feel safe at home: Yes Smoking Status: Current every day smoker Tobacco: How many years used: 18 second hand exposure: Yes (s/o smokes, but not around pt or daughter) alcohol intake: former (~3-4/week when not ) substance use type: marijuana (not interested in quitting) during the past year weight has: increased > 10 lbs well-balanced diet: rarely or never daily servings fruits/ve-1 caffeine: Yes (occasional coffee/soda, not every day) Type(s) of exercise: walking frequency: daily duration: < 15 minutes/day Smoking Status: Current every day smoker tobacco type: cigarettes alcohol intake frequency: holidays/special occasions only Substance Use Type: marijuana Exam Narrative Exam Narrative: GEN: well nourished, well appearing you may, alert and oriented x 3, patient appears to be in mild distress. HEENT: Atraumatic, pupils are equal round reactive to light, extraocular movements are intact, nares are clear, left TM is retracted with no fluid, right TM has some bulge, mild fluid, no erythema, canal is clear,, there is no conjunctival pallor. Throat is clear without any exudates, patient has mild erythema and bilateral tonsillar enlargement no uvular deviation, no cervical lymphadenopathy. HEART: Regular rate and rhythm without murmur, clicks, rubs. LUNGS:Lungs clear to auscultation, no wheezes, rales, crackles, chest moves symmetrically ABD:bowel sounds normal, soft, non-tender, no guarding, rebound, rigidity, no masses noted, no hepatosplenomegaly MSCL: full range of motion, normal gait NEURO:CN 2-12 intact, sensation normal SKIN: No rash, erythema or other skin changes. Initial Vital Signs Initial Vital Signs: Vital Signs Temperature 97.9 F 11/19/23 00:27 Pulse Rate 92 H 11/19/23 00:27 Respiratory Rate 18 11/19/23 00:27 Blood Pressure 128/72 11/19/23 00:27 Pulse Oximetry 97 11/19/23 00:27 Oxygen Delivery Method Room Air 11/19/23 00:27 Course Vital Signs Vital signs: Vital Signs - 8 hr 11/19/23 00:27 11/19/23 04:21 Temperature 97.9 F Pulse Rate 92 H 60 Respiratory Rate 18 18 Blood Pressure 128/72 121/61 Pulse Oximetry 97 98 Oxygen Delivery Method Room Air Room Air Medical Decision Making [facility] Narrative Medical decision making narrative: 42-year-old female recently diagnosed with otitis media has been taking amoxicillin, patient is still has muffled hearing has had increasing sensation of fullness. States not really painful. Patient does feel like it is all on the right side. Has had little tonsillar enlargement and erythema with hoarseness and nasal congestion. Patient has also had mild cough. She had a strep test on the when she was seen at the walk-in clinic in his negative. Symptoms seem on exam seems consistent with likely recent viral upper respiratory infection causing so eustachian tube dysfunction. She has been on amoxicillin so may have had otitis media and improved but no signs of infection currently. She did receive ipratropium but has not been using it. Encouraged patient to use this. We will give a script for Flonase if it has not helpful recommend to add antihistamines. Discharge Plan Departure Patient Disposition: Home Clinical Impression: Acute dysfunction of right eustachian tube Instructions: DI for Eustachian Tube Dysfunction-Adult Activity Restrictions/Additional Instructions: Follow up as needed. Appears that your right ear is not draining as well, there is no signs of infection currently. Use the spray prescribed by the walk-in clinic for the next 24-48 hours if this is helpful you can continue with it. If not you can change the prescription provided with Flonase which is a steroid nasal spray. Prescription was printed. I would also recommend adding on antihistamine such as loratadine [id number] once daily or Benadryl. Please return if fevers, new pain, loss of hearing, new drainage or bleeding, vomiting or other new or concerning Prescriptions: New fluticasone propionate [Aller-Brett] 50 mcg/actuation spray,suspension 1 spray intranasal BID Qty: 16 0RF Rx Instructions: administer into each nostril No Action amoxicillin-pot clavulanate 875-125 mg tablet 1 tab PO Q12H 7 Days Qty: 14 0RF ipratropium bromide 21 mcg (0.03 %) spray,non-aerosol 2 spray intranasal BID PRN (Reason: nasal congestion) Qty: 30 0RF Rx Instructions: administer into each nostril Referrals: Justyna Beltran MD [Primary Care Provider] - Stand Alone Forms: Patient Portal/API
[2023-11-19 04:21] VITALS: BP 121/61; PULSE 60; RESP 18; O2SAT 98
== END 2023-11-19 04:30 | disposition home or self-care (01) ==
PROVIDERS: Emergency Provider Emergency Medicine; PCP Internal Medicine
DX: H69.81 Other specified disorders of Eustachian tube, right ear (principal)
CPT/HCPCS: 99281; 99282

== ENCOUNTER 2024-05-27 19:58 | Emergency (ER) | payer OTHER, SELFPAY ==
[2024-05-27 20:14] VITALS: BP 129/86; PULSE 103; RESP 24; TEMP 37.1; O2SAT 97; BMI 34.7
[2024-05-27 21:29] LABS: Adenovirus Not Detected (Not Detect); B. parapertussis Not Detected (Not Detecte); Bordetella pertussis Not Detected (Not Detect); Chlamydophila pneumoniae Not Detected (Not Detect); Coronavirus 229E Not Detected (Not Detect); Coronavirus HKU1 Not Detected (Not Detect); Coronavirus NL 63 Not Detected (Not Detect); Coronavirus OC43 Not Detected (Not Detect); Human Metapneumovirus Not Detected (Not Detect); Human Rhinovirus/Enterovirus Not Detected (Not Detect); Influenza A H3 Detected (Not Detect); Influenza B Not Detected (Not Detect); Mycoplasma pneumoniae Not Detected (Not Detect); Parainfluenza Virus 1 Not Detected (Not Detect); Parainfluenza Virus 2 Not Detected (Not Detect); Parainfluenza Virus 3 Not Detected (Not Detect); Parainfluenza Virus 4 Not Detected (Not Detect); Respiratory Syncytial Virus Not Detected (Not Detect); SARS- CoV-2 Not Detected (Not Detecte)
[2024-05-27 22:11] VITALS: BP 132/89; PULSE 82; RESP 20; TEMP 37.1; O2SAT 97
--- NOTE | 2024-05-27 22:25 | ED_ITS ---
HPI - URI/Sore Throat General Chief Complaint: Upper Respiratory Symptoms Stated Complaint: fever, diarrhea, cough Time Seen by Provider: 05/27/24 22:08 Source: patient, RN notes reviewed and old records reviewed Mode of arrival: Family Vehicle Limitations: no limitations History of Present Illness HPI Narrative: 43-year-old female states she was had a week or more of fevers congestion, myalgias intermittent hot and cold chills and diarrhea she also notes some sinus pressure. Patient's describes subjective fevers. Both of her children have also been ill for the past 4 days with fevers and nasal congestion 1 of them had nausea and vomiting and diarrhea. No persistent vomiting. No chest pain. No shortness of breath. Patient has had cough and describes green mucus. Related Data Previous Rx's Medication Instructions Recorded ipratropium bromide 21 mcg (0.03 2 spray intranasal BID PRN nasal 11/14/23 %) nasal spray congestion #30 mL fluticasone propionate 50 1 spray intranasal BID #16 grams 11/19/23 mcg/actuation nasal spray,suspension (Aller-Brett) Allergies Allergy/AdvReac Type Severity Reaction Status Date / Time morphine AdvReac Intermediate pt felt Verified 11/14/23 16:21 like she was on fire plastic tape Allergy Mild Rash Uncoded 11/14/23 16:21 paper tape Allergy Rash Uncoded 11/14/23 16:21 Review of Systems Review of Systems ROS Unobtainable: All systems reviewed & are unremarkable except as noted in HPI and below Patient History Medical History depression Asthma Viral URI with cough Polycystic ovaries (10/06/15) Surgical History History of cholecystectomy Family History Mother Heart attack Stroke Father Diabetes mellitus Pancreatitis Sister Diabetes mellitus Family/Other Diabetes mellitus Social History marital status: unmarried,living together number of children: 1 household members: significant other (ex-) and children lives independently: Yes caregiver/support person: Yes housing: other (hotel) pets and animals: Yes (1 dog) education level: college (some college) 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) current occupational exposures/hazards: No special benjamin needs: No travel history: over 6 months ago seatbelt use: sometimes water heater temp set < 120 deg: Yes working smoke detector in home: Yes fire extinguisher in home: Yes carbon monox detector in home: Yes firearms in home: No do you feel safe at home: Yes Smoking Status: Former smoker Tobacco: How many years used: 18 second hand exposure: Yes (s/o smokes, but not around pt or daughter) alcohol intake: former (~3-4/week when not ) substance use type: marijuana (not interested in quitting) during the past year weight has: increased > 10 lbs well-balanced diet: rarely or never daily servings fruits/ve-1 caffeine: Yes (occasional coffee/soda, not every day) Type(s) of exercise: walking frequency: daily duration: < 15 minutes/day Smoking Status: Former smoker tobacco type: cigarettes alcohol intake frequency: holidays/special occasions only Exam Narrative Exam Narrative: GEN: Well nourished female, alert and oriented x 3, patient appears to be in mild distress. HEENT: Atraumatic, pupils are equal round reactive to light, extraocular movements are intact, nares bilateral clear rhinorrhea, TMs are clear with no fluid, there is no conjunctival pallor. Throat is clear without any exudates, erythema, tonsillar enlargement or uvular deviation HEART: Regular rate and rhythm without murmur, clicks, rubs. LUNGS:Lungs clear to auscultation, no wheezes, rales, crackles, chest moves symmetrically, no tachypnea or accessory muscle use ABD:bowel sounds normal, soft, non-tender, no guarding, rebound, rigidity, no masses noted, no hepatosplenomegaly MSCL: full range of motion. NEURO:CN 2-12 intact, sensation normal. Initial Vital Signs Initial Vital Signs: Vital Signs Temperature 98.8 F 05/27/24 20:14 Pulse Rate 103 H 05/27/24 20:14 Respiratory Rate 24 05/27/24 20:14 Blood Pressure 129/86 05/27/24 20:14 Pulse Oximetry 97 05/27/24 20:14 Oxygen Delivery Method Room Air 05/27/24 20:14 Course Orders Ordered: ED Orders 05/27/24 20:36 Respiratory Panel (Film Array) Stat Vital Signs Vital signs: Vital Signs - 8 hr 05/27/24 20:14 05/27/24 22:11 Temperature 98.8 F 98.8 F Pulse Rate 103 H 82 Respiratory Rate 24 20 Blood Pressure 129/86 132/89 Pulse Oximetry 97 97 Oxygen Delivery Method Room Air Room Air MDM - URI/Sore Throat Lab Data Labs: Lab Results 05/27/24 Range/Units 20:36 Chlamy pneumoniae PCR Not detected (Not Detect) Adenovirus (PCR) Not detected (Not Detect) B. pertussis DNA (PCR) Not detected (Not Detect) B.parapertussis DNA PCR Not detected (Not Detecte) Coronavirus OC43 (PCR) Not detected (Not Detect) Coronavirus HKU1 (PCR) Not detected (Not Detect) Coronavirus 229E (PCR) Not detected (Not Detect) SARS-CoV-2 (PCR) Not detected (Not Detecte) Coronavirus NL63 (PCR) Not detected (Not Detect) Human Metapneumovir PCR Not detected (Not Detect) Influenza A (H3) PCR Detected H (Not Detect) Influenza Type B (PCR) Not detected (Not Detect) M. pneumoniae (PCR) Not detected (Not Detect) Parainfluenza 1 (PCR) Not detected (Not Detect) Parainfluenza 2 (PCR) Not detected (Not Detect) Parainfluenza 3 (PCR) Not detected (Not Detect) Parainfluenza 4 (PCR) Not detected (Not Detect) RSV (PCR) Not detected (Not Detect) Entero/Rhino (PCR) Not detected (Not Detect) [facility] Narrative Medical decision making narrative: 43-year-old female reports fevers and generally feeling unwell with myalgias, cough cold diarrhea and has 2 children who had similar symptoms for the past several days. Patient tested positive for influenza A. Vitals are overall appropriate. Exam is benign. Discussed based on her timeframe would not be a candidate for Tamiflu. Discussed symptomatic treatment and return precautions. Discharge Plan Departure Patient Disposition: Home Clinical Impression: Influenza A Instructions: DI for Influenza -- Adult Activity Restrictions/Additional Instructions: You have tested positive for influenza A, this is a viral illness it typically lasts 7-10 days. You can treat fevers with ibuprofen and/or acetaminophen. Please return for new chest pain or shortness of breath, passing out, persistent vomiting or other new or concerning changes Prescriptions: No Action ipratropium bromide 21 mcg (0.03 %) spray,non-aerosol 2 spray intranasal BID PRN (Reason: nasal congestion) Qty: 30 0RF Rx Instructions: administer into each nostril fluticasone propionate [Aller-Brett] 50 mcg/actuation spray,suspension 1 spray intranasal BID Qty: 16 0RF Rx Instructions: administer into each nostril Referrals: Justyna Beltran MD [Primary Care Provider] - Stand Alone Forms: Patient Portal/API/Survey
== END 2024-05-27 22:45 | disposition home or self-care (01) ==
PROVIDERS: Emergency Provider Emergency Medicine; PCP Internal Medicine
DX: J10.1 Influenza due to other identified influenza virus with other respiratory manifestations (principal); Z87.891 Personal history of nicotine dependence
CPT/HCPCS: 87633; 99282

== ENCOUNTER 2024-10-08 22:34 | Emergency (ER) | payer OTHER, SELFPAY ==
[2024-10-08 22:39] VITALS: PULSE 66; RESP 18; TEMP 36.9; O2SAT 96; BMI 35.0
--- NOTE | 2024-10-08 23:40 | ED.EAR ---
HPI - Ear Problem General Chief complaint: Ear Stated complaint: ear px Time Seen by Provider: 10/08/24 23:33 Source: patient Mode of arrival: Ambulatory History of Present Illness HPI Narrative: 43-year-old female reports history of recurrent ear infections, increasing right-sided ear pain nontraumatic for the last couple of days, no drainage. She is not currently taking any antibiotics. She has not recently taken antibiotics in the last number of months. Related Data Previous Rx's Medication Instructions Recorded ipratropium bromide 21 mcg (0.03 2 spray intranasal BID PRN nasal 11/14/23 %) nasal spray congestion #30 mL fluticasone propionate 50 1 spray intranasal BID #16 grams 11/19/23 mcg/actuation nasal spray,suspension (Aller-Brett) amoxicillin 875 mg tablet 875 mg PO BID dental infection 10 10/08/24 days #20 tabs amoxicillin 875 mg tablet 875 mg PO BID dental infection 7 10/08/24 days #14 tabs Allergies Allergy/AdvReac Type Severity Reaction Status Date / Time morphine AdvReac Intermediate pt felt Verified 11/14/23 16:21 like she was on fire plastic tape Allergy Mild Rash Uncoded 11/14/23 16:21 paper tape Allergy Rash Uncoded 11/14/23 16:21 Patient History Medical History depression Asthma Viral URI with cough Polycystic ovaries (10/06/15) Surgical History History of cholecystectomy Family History Mother Heart attack Stroke Father Diabetes mellitus Pancreatitis Sister Diabetes mellitus Family/Other Diabetes mellitus Social History marital status: unmarried,living together number of children: 1 household members: significant other (ex-) and children lives independently: Yes caregiver/support person: Yes housing: other (hotel) pets and animals: Yes (1 dog) education level: college (some college) 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) current occupational exposures/hazards: No special benjamin needs: No travel history: over 6 months ago seatbelt use: sometimes water heater temp set < 120 deg: Yes working smoke detector in home: Yes fire extinguisher in home: Yes carbon monox detector in home: Yes firearms in home: No do you feel safe at home: Yes Tobacco: How many years used: 18 second hand exposure: Yes (s/o smokes, but not around pt or daughter) alcohol intake: former (~3-4/week when not ) substance use type: marijuana (not interested in quitting) during the past year weight has: increased > 10 lbs well-balanced diet: rarely or never daily servings fruits/ve-1 caffeine: Yes (occasional coffee/soda, not every day) Type(s) of exercise: walking frequency: daily duration: < 15 minutes/day tobacco type: cigarettes alcohol intake frequency: holidays/special occasions only Exam Narrative Exam Narrative: GENERAL: Well-developed patient, in mild distress. HEAD: Atraumatic. Normocephalic. EYES: Pupils equal round and reactive. Extraocular motions intact. No scleral icterus. No injection or drainage. ENT: Nose without bleeding, purulent drainage. Throat without erythema, tonsillar hypertrophy or exudate. Right-sided TM with dullness and bulging, loss of landmarks. EAC normal. Right TM and EAC unremarkable. NECK: Trachea midline. Non tender CARDIOVASCULAR: Regular rate and rhythm without murmurs, gallops, or rubs. RESPIRATORY: Clear to auscultation. Breath sounds equal bilaterally. No wheezes, rales, or rhonchi. GASTROINTESTINAL: Abdomen soft, non-tender, nondistended. EXTREMITIES: No edema or joint tenderness. BACK: Nontender without deformity or crepitance. No flank tenderness. NEURO: AOx3. Motor functions grossly nonfocal SKIN: No rash or erythema of visible areas Initial Vital Signs Initial Vital Signs: Vital Signs Temperature 98.5 F 10/08/24 22:39 Pulse Rate 66 10/08/24 22:39 Respiratory Rate 18 10/08/24 22:39 Pulse Oximetry 96 10/08/24 22:39 Oxygen Delivery Method Room Air 10/08/24 22:39 Course Orders Ordered: Discontinued Medications Amoxicillin (Amoxicillin 250 Mg Capsule) 1,000 mg PO NOW ONE Stop: 10/08/24 23:53 Last Admin: 10/08/24 23:57 Dose: 1,000 mg Documented By: AB Vital Signs Vital signs: Vital Signs - 8 hr 10/08/24 22:39 10/08/24 23:47 Temperature 98.5 F 98.3 F Pulse Rate 66 68 Respiratory Rate 18 19 Blood Pressure 113/69 Pulse Oximetry 96 98 Oxygen Delivery Method Room Air Room Air Medical Decision Making [facility] Narrative Medical decision making narrative: Right-sided ear pain nontraumatic, right at acute suppurative otitis media on examination right side, no obvious fluid in the ear canal, no EAC narrowing. Trial of oral antibiotics. Oral amoxicillin dispensed first dose, prescription for further oral course sent to her pharmacy. OTC analgesics advice for pain control. Follow up with PCP if not improving next few days. If ear infections or recurrent consider otolaryngology for tympanostomy tube placement options. Discharged home. Return precautions discussed. Discharge Plan Departure Patient Disposition: Home Clinical Impression: Acute right otitis media Activity Restrictions/Additional Instructions: Right ear pain without drainage. History of recurrent ear infections, but none in the last couple of months. No current oral antibiotics. Right ear infection changes on direct exam noted with otoscopy. First dose of amoxicillin given in the emergency department, prescription sent to your pharmacy for further antibiotics. Take Tylenol and or Motrin as needed for pain control. Recheck with your regular doctor if not improving in next few days. If recurrent ear infections consider otolaryngology referral. Return earlier to this/nearest emergency department for any change worsening symptoms or any concerns prior. Prescriptions: New amoxicillin 875 mg tablet 875 mg PO BID 7 Days Qty: 14 0RF amoxicillin 875 mg tablet 875 mg PO BID 10 Days Qty: 20 0RF No Action ipratropium bromide 21 mcg (0.03 %) spray,non-aerosol 2 spray intranasal BID PRN (Reason: nasal congestion) Qty: 30 0RF Rx Instructions: administer into each nostril fluticasone propionate [Aller-Brett] 50 mcg/actuation spray,suspension 1 spray intranasal BID Qty: 16 0RF Rx Instructions: administer into each nostril Referrals: Justyna Beltran MD [Primary Care Provider] - Stand Alone Forms: Patient Portal/API/Survey
[2024-10-08 23:47] VITALS: BP 113/69; PULSE 68; RESP 19; TEMP 36.8; O2SAT 98
[2024-10-08] MEDS: AMOXICILLIN 250 MG CAPSULE 1000 MG PO (23:57)
== END 2024-10-08 23:58 | disposition home or self-care (01) ==
PROVIDERS: Emergency Provider Emergency Medicine; PCP Internal Medicine
DX: H66.91 Otitis media, unspecified, right ear (principal)
CPT/HCPCS: 99283